=== PATIENT | male | born 1985 | race Caucasian/White ===

== ENCOUNTER 2023-08-04 18:33 | Outpatient (CLI) | payer BC, SELFPAY | END 2023-08-04 18:34 | disposition home or self-care (01) | LOC: AMB 08-11 13:28 | PROVIDERS: Visit Provider Family Medicine | DX: R07.89 Other chest pain (principal) | CPT/HCPCS: A0425; A0427 ==

== ENCOUNTER 2023-08-04 18:54 | Emergency (ER) | payer BC, SELFPAY ==
[2023-08-04] VITALS (17 sets, daily range): BP systolic 137–191; BP diastolic 84–139; PULSE 83–100; RESP 22; TEMP 36.6; O2SAT 90–96; BMI 60.0
--- NOTE | 2023-08-04 19:19 | ED_ITS ---
HPI - General Adult General Chief complaint: Chest Pain Stated complaint: Chest pain Time Seen by Provider: 08/04/23 19:19 History of Present Illness HPI narrative: Patient went for a long walk this morning ( 0700-noon), got back and felt like his lungs were burning at 1500. Had a very heavy feeling in his left arm, felt his vision was changed. Notes he became very short of breath with activity. EMS administered 324 ASA, x2 nitro with some improvement to pain. 37-year-old man presenting to emergency department concern of chest pain. Took a very long walk this morning returning feeling like his lungs are burning is if he had put quality gin, a pine scent he says, into his lungs. He does note a history of alcohol use but has not drank in 2 years. Later this evening than and there was abrupt onset of mid chest pain seemed to radiate deep ache into his left shoulder upper arm area and then down. [place] like something maybe was going into his left neck or jaw as well. He then looked out the window and all the colors were affected just generally pale or washed out. He did not pass out. He does report feeling intermittent flutters in his chest but does not report that at this time nor that he was clearly in tachycardia. He says girlfriend freaked out and he needed to be evaluated. Does not sound as though he typically struggles with GERD or heartburn. Does not have known heart problems. Does take diuretics though for lower extremity edema I believe. The end of March sounds like was treated for a cellulitis believe that location must have involved pannus. Did receive aspirin and nitro from EMS and is improved. He estimates total symptoms of intense pain lasted about 10 minutes, but admittedly maybe longer. He is comfortable at this time; no reported discomfort. Related Data Home Medications Medication Instructions Recorded Confirmed acetazolamide 250 mg tablet 125 mg PO BID 08/04/23 08/04/23 allopurinol 100 mg tablet 100 mg PO DAILY 08/04/23 08/04/23 bumetanide 2 mg tablet 4 mg PO BID 08/04/23 08/04/23 lisinopril 40 mg tablet 40 mg PO DAILY 08/04/23 08/04/23 potassium chloride 20 mEq oral 20 meq PO DAILY 08/04/23 08/04/23 packet (Yanci-Sid) sertraline 50 mg tablet 50 mg PO DAILY 08/04/23 08/04/23 Allergies Allergy/AdvReac Type Severity Reaction Status Date / Time No Known Drug Allergies Allergy Verified 08/04/23 19:05 Review of Systems Status of ROS: Reports: 6 or more systems reviewed and unremarkable except as noted in History and below Exam Narrative: Exam Narrative: Very pleasant. Energetic. Carefully trimmed [place]. Morbidly obese. Cranial nerves 2-12 intact. Is moving all extremities without difficulty. Does have changes consistent with obesity in lower extremities with varicosities. Strong and equal upper extremity pulses. There is some eczematous change in the anterior left ankle. Skin otherwise warm and dry. Tattoo at left forearm. Lungs are clear. Abdomen is obese soft nontender. Heart is in elevated rate in a regular rhythm. Does have a 1-2/6 systolic murmur loudest at the left sternal border. Not radiating into carotids. has residual Vicryl stitch in right lower flank. Const: Vital Signs, click to edit/add: Vital Signs - 24 hr 08/04/23 19:00 08/04/23 19:35 08/04/23 19:35 Temperature 97.8 F Pulse Rate 94 Pulse Rate [Pulse Oximeter] 99 Respiratory Rate 22 Blood Pressure 137/104 H Blood Pressure [Ri ght Upper Arm] 139/103 H Pulse Oximetry 96 93 95 Oxygen Delivery Me thod Room Air 08/04/23 19:36 08/04/23 19:45 08/04/23 20:00 Temperature Pulse Rate 93 100 92 Pulse Rate [Pulse Oximeter] Respiratory Rate Blood Pressure Blood Pressure [Ri ght Upper Arm] Pulse Oximetry 95 95 95 Oxygen Delivery Me thod 08/04/23 20:01 08/04/23 20:15 08/04/23 20:30 Temperature Pulse Rate 87 92 96 Pulse Rate [Pulse Oximeter] Respiratory Rate Blood Pressure 182/91 H Blood Pressure [Ri ght Upper Arm] Pulse Oximetry 95 95 93 Oxygen Delivery Me thod 08/04/23 20:31 08/04/23 20:45 08/04/23 21:00 Temperature Pulse Rate 94 92 83 Pulse Rate [Pulse Oximeter] Respiratory Rate Blood Pressure 154/87 H Blood Pressure [Ri ght Upper Arm] Pulse Oximetry 92 92 93 Oxygen Delivery Me thod 08/04/23 21:02 08/04/23 21:15 Temperature Pulse Rate 83 86 Pulse Rate [Pulse Oximeter] Respiratory Rate Blood Pressure 191/139 H Blood Pressure [Ri ght Upper Arm] Pulse Oximetry 90 92 Oxygen Delivery Ms thod Documenting provider has reviewed patient's vital signs: yes Course Vital Signs Vital signs: Initial Vital Signs Respiratory Effort Normal, Non-Labored 08/04/23 18:59 Respiratory Depth Shallow 08/04/23 18:59 Vital Signs Temperature 97.8 F 08/04/23 19:00 Pulse Rate 99 08/04/23 19:00 Respiratory Rate 22 08/04/23 19:00 Blood Pressure 139/103 H 08/04/23 19:00 Pulse Oximetry 96 08/04/23 19:00 Oxygen Delivery Method Room Air 08/04/23 19:00 Temperature 97.8 F 08/04/23 19:00 Pulse Rate 86 08/04/23 21:15 Respiratory Rate 22 08/04/23 19:00 Blood Pressure 191/139 H 08/04/23 21:02 Pulse Oximetry 92 08/04/23 21:15 Oxygen Delivery Method Room Air 08/04/23 19:00 Medical Decision Making MDM Narrative Medical decision making narrative: Differential would include ischemic cardiovascular disease, tachyarrhythmia, pulmonary embolus though symptoms seem to have resolved at this time. Vascular disruption/dissection. Pneumothorax though again seems improved. Same for costochondritis as possibility. Reflux and esophageal spasm? Does not otherwise seem to have been an exposure or with evidence of a chemical pneumonitis. This point would monitor emergency department with serial troponins and monitor for dysrhythmia and recurrence of discomfort. Portable one view chest x-ray reviewed by me looks to show some cardiomegaly. No pneumothorax no pneumomediastinum. Normal mediastinum otherwise though admittedly exam limited. labs are reassuring with flat troponin on redraw. Negative D-dimer suggests no significant dissection. No further events of discomfort or unstable vitals beyond what I think is some baseline chronically elevated blood pressure and pulse. Removed stitch from right flank. I think would benefit from further cardiac evaluation and important to get the CPAP that is pending arrival; apparently in a nearby town. See patient discharge plan for further discussion Lab Data Lab results reviewed: Yes I reviewed the patient's lab results Labs: Lab Results 08/04/23 08/04/23 08/04/23 Range/Units 19:50 19:57 21:35 WBC 10.28 (4.50-11.00) K/uL RBC 5.18 (4.30-5.90) m/uL Hgb 14.6 (13.5-17.5) gm/dL Hct 45.3 (37.0-53.0) % MCV 88 (80-100) fL MCH 28 (26-34) pg MCHC 32 (32-36) gm/dL RDW Coeff of Octavia 13.1 (11.5-15.5) % Plt Count 100 L (140-440) K/uL Neut % (Auto) 64.6 (42.0-72.0) % Lymph % (Auto) 25.0 (20-44) % [place] % (Auto) 6.9 (0.0-11.0) % Eos % (Auto) 3.0 (0.0-7.0) % Baso % (Auto) 0.3 (0.0-3.0) % Neut # (Auto) 6.64 (1.7-7.0) K/uL Lymph # (Auto) 2.57 (0.90-2.90) K/uL [place] # (Auto) 0.70 (0.00-0.90) K/UL Eos # (Auto) 0.31 (0.00-0.50) K/uL Baso # (Auto) 0.03 (0.00-0.30) K/uL Abs Immat Gran (auto) 0.02 (0.00-0.30) K/uL Imm/Tot Granulo (auto) 0.2 % Diff Slide Review Acceptable Review (Acceptable) D-Dimer Quant (PE/DVT) 0.31 (0.00-0.50) ug/ml Sodium 140 (135-149) mmol/L Potassium 4.2 (3.6-5.1) mmol/L Chloride 105 (96-114) mmol/L Carbon Dioxide 30 (20-32) mmol/L Anion Gap 5 L (7-15) mEq/L BUN 26 H (5-24) mg/dL Creatinine 0.9 (0.5-1.5) mg/dL Estimated Creat Clear 118.53 Estimated GFR 112 ml/min Glucose 104 (60-115) mg/dL Calcium 8.8 (8.4-10.6) mg/dL Magnesium 2.0 (1.5-2.6) mg/dL Total Bilirubin 0.2 (0.1-1.5) mg/dL Direct Bilirubin 0.1 (0.0-0.5) mg/dL AST 26 (12-35) U/L ALT 19 (4-50) U/L Alkaline Phosphatase 62 (40-150) U/L Troponin I 0.03 0.03 (0.01-0.04) ng/mL C-Reactive Protein 1.0 (0.5-1.0) mg/dL NT-Pro-B Natriuret Pep 89 pg/mL Total Protein 7.3 (6.0-8.3) g/dL Albumin 3.7 (3.3-5.0) g/dL Lipase 159 (23-300) U/L Ethyl Alcohol < 0.01 L (0.01-0.03) % POC Troponin I 0.03 (0.01-0.04) ng/ml ECG Data Attestation: I personally reviewed and interpreted this ECG as follows: (Normal sinus rhythm. Rate of 98.) Discharge Plan Discharge Clinical Impression: Atypical chest pain, Heart murmur Patient Disposition: Home, Self-Care Condition: Stable Additional Instructions: stay well-hydrated. I would follow up for further cardiovascular evaluation with your primary care provider. If you have not already this recently, would include an echoca rdiogram. I think it's great you got outside this beautiful day. I would not let this experience today change that. Hopefully you can get your hands on that CPAP soon Prescriptions: No Action potassium chloride [Klor-Con] 20 mEq packet 20 meq PO DAILY bumetanide 2 mg tablet 4 mg PO BID lisinopril 40 mg tablet 40 mg PO DAILY sertraline 50 mg tablet 50 mg PO DAILY allopurinol 100 mg tablet 100 mg PO DAILY acetazolamide 250 mg tablet 125 mg PO BID Follow Up/Referrals: Provider,Not a Local [Primary Care Provider] - Stand Alone Forms: MyHealth Info Instructions
--- NOTE | 2023-08-04 19:36 | XR_ITS ---
Patient: HEATHER PARIS Facility:?[facility] Patient ID:?[id number] Site Patient ID:?[id number]. Site :?[id number] Study:?XRay-Chest PORTABLE-08/04/2023 7:50:42 PM Ordering Physician:DAVID Final Report: INDICATION: Mid chest pain, radiating to left arm. TECHNIQUE: Chest 1 view. COMPARISON: None. FINDINGS: Cardiac monitoring leads overlying the patient. No focal consolidation, pleural effusion, or pneumothorax. The cardiac silhouette appears mildly enlarged. Pulmonary vasculature is within normal limits. The bones are unremarkable. IMPRESSION: Mild cardiomegaly. Dictated by Denita Crain MD @ 08/04/2023 8:01:28 PM Signed by:?Denita Crain MD @08/04/2023 8:01:28 PM (Electronic Signature)
[2023-08-04 20:16] LABS: Troponin, Point-of-Care* 0.03 ng/ml (0.01-0.04)
[2023-08-04 20:18] LABS: Basophils Absolute Auto 0.03 K/uL (0.00-0.30); Basophils Percent Auto 0.3 % (0.0-3.0); Eosinophils Absolute Auto 0.31 K/uL (0.00-0.50); Hematocrit 45.3 % (37.0-53.0); Hemoglobin* 14.6 gm/dL (13.5-17.5); Immature Granulocytes Abs Auto 0.02 K/uL (0.00-0.30); Immature Granulocytes Pct Auto 0.2 %; Lymphocytes Absolute Auto 2.57 K/uL (0.90-2.90); Mean Corpuscular HGB Conc 32 gm/dL (32-36); Mean Corpuscular Hemoglobin 28 pg (26-34); Mean Corpuscular Volume 88 fL (80-100); Monocytes Percent Auto 6.9 % (0.0-11.0); Neutrophils Absolute Auto 6.64 K/uL (1.7-7.0); Neutrophils Percent Auto 64.6 % (42.0-72.0); Platelet Count* 100 K/uL (140-440); RDW Coefficient of Variation % 13.1 % (11.5-15.5); Red Blood Count 5.18 m/uL (4.30-5.90); White Blood Count* 10.28 K/uL (4.50-11.00)
[2023-08-04 20:31] LABS: Slide Review Reflex Yes
[2023-08-04 20:33] LABS: D Dimer Quantitative* 0.31 ug/ml (0.00-0.50)
[2023-08-04 21:08] LABS: Slide Review Acceptable Review (Acceptable)
[2023-08-04 21:14] LABS: Chloride* 105 mmol/L (96-114)
[2023-08-04 21:15] LABS: Albumin* 3.7 g/dL (3.3-5.0); Sodium* 140 mmol/L (135-149)
[2023-08-04 21:16] LABS: Potassium* 4.2 mmol/L (3.6-5.1)
[2023-08-04 21:17] LABS: Creatinine* 0.9 mg/dL (0.5-1.5); Est. Creatinine Clearance* 118.53; Estimated Glomerular Filt Rate 112 ml/min
[2023-08-04 21:18] LABS: Alkaline Phosphatase* 62 U/L (40-150); Anion Gap 5 mEq/L (7-15); Aspartate Amino Transferase* 26 U/L (12-35); Bilirubin Direct* 0.1 mg/dL (0.0-0.5); Bilirubin Total* 0.2 mg/dL (0.1-1.5); Blood Urea Nitrogen* 26 mg/dL (5-24); Carbon Dioxide* 30 mmol/L (20-32); Lipase* 159 U/L (23-300); Total Protein* 7.3 g/dL (6.0-8.3)
[2023-08-04 21:19] LABS: Alanine Aminotransferase* 19 U/L (4-50); Calcium* 8.8 mg/dL (8.4-10.6); Glucose* 104 mg/dL (60-115)
[2023-08-04 21:26] LABS: Ethanol* < 0.01 % (0.01-0.03)
[2023-08-04 21:28] LABS: NT Pro B Type NatriureticPept* 89 pg/mL
[2023-08-04 21:30] LABS: Troponin I* 0.03 ng/mL (0.01-0.04)
[2023-08-04 22:32] LABS: Troponin I* 0.03 ng/mL (0.01-0.04)
== END 2023-08-04 22:48 | disposition home or self-care (01) ==
PROVIDERS: Emergency Provider Family Medicine
DX: R07.9 Chest pain, unspecified (principal); R01.1 Cardiac murmur, unspecified
CPT/HCPCS: 36415; 71045; 80048; 80076; 82077; 83690; 83735; 83880; 84484; 85025; 85379; 86140; 93005; 94761; 99284; 99285

== ENCOUNTER 2024-01-27 12:34 | Outpatient (CLI) | payer BC, SELFPAY | END 2024-01-27 12:35 | disposition home or self-care (01) | LOC: AMB 01-31 11:45 | PROVIDERS: PCP Family Medicine; Visit Provider Family Medicine | DX: R45.851 Suicidal ideations (principal) | CPT/HCPCS: A0425; A0429 ==

== ENCOUNTER 2024-01-27 13:02 | Emergency (ER) | payer BC, SELFPAY ==
[2024-01-27 13:04] VITALS: BP 184/130; PULSE 94; RESP 20; TEMP 36.2; O2SAT 93; BMI 71.1
--- NOTE | 2024-01-27 13:15 | ED_ITS ---
HPI - General Adult General Chief complaint: Psychiatric Problem/Disorder Stated complaint: mental health Time Seen by Provider: 01/27/24 13:03 History of Present Illness HPI narrative: [age] year white male who is obese and has a history of anxiety and depression currently on escitalopram. He reports that he has had some suicidal attempt in the past where he tried to ?cut a vein in his leg and bleed himself out?. He reports that he has been in his apartment. Had a stressful relationship problem. He has been unable to get out of his chair due to the mental concerns a at and he feels like he is at risk to himself. Last night he put all annular on his neck and tried to strangle himself. He denies injury from that. He states he did this for maybe 30-60 seconds. He denies physical pain, denies overdose, denies Tylenol aspirin use, denies street drug use. He has been on antidepressant. His primary care got went of his situation last night and then called the ambulance and he was brought in. He reports that he still does not really feel safe with himself and that he feels very distraught and can confirm safety. Related Data Home Medications ?Medication ?Instructions ?Recorded ?Confirmed acetazolamide 250 mg tablet 125 mg PO BID 08/04/23 01/28/24 allopurinol 100 mg tablet 100 mg PO DAILY 08/04/23 01/28/24 lisinopril 40 mg tablet 40 mg PO DAILY 08/04/23 01/27/24 bumetanide 0.5 mg tablet 0.5 mg PO BID 01/27/24 01/28/24 escitalopram oxalate 10 mg tablet 10 mg PO DAILY 01/27/24 01/27/24 potassium chloride 20 mEq 20 meq PO DAILY 01/27/24 01/27/24 tablet,extended release(part/cryst) Allergies Allergy/AdvReac Type Severity Reaction Status Date / Time concrete Allergy Unknown Uncoded 01/27/24 13:08 Review of Systems Status of ROS: Reports: 6 or more systems reviewed and unremarkable except as noted in History and below PFS PFS Social History Smoking Status: Current every day smoker What tobacco products do you use: cigarettes Exam Narrative: Exam Narrative: Objective: 38-year-old obese male who appears tearful, his mental status a shows an be alert orient x3, he shows some insight to his situation, reports that is not necessarily feel safe with himself at home. HEENT is unremarkable Neurologic grossly nonfocal Mental status as above, patient describes suicidal ideation and says a gesture last night. Denies any other medications being taken other than his prescrip tion medicines. Const: Vital Signs, click to edit/add: Vital Signs - 24 hr 01/27/24 13:04 01/27/24 13:47 Temperature 97.1 F L Pulse Rate [Pulse Oximeter] 94 Respiratory Rate 20 Blood Pressure [Le ft Upper Arm] 184/130 H 165/95 H Pulse Oximetry 93 Oxygen Delivery Me thod Room Air Course Vital Signs Vital signs: Initial Vital Signs Temperature 97.1 F L 01/27/24 13:04 Temperature Source Temporal Artery Scan 01/27/24 13:04 Pulse Rate 94 01/27/24 13:04 Respiratory Rate 20 01/27/24 13:04 Blood Pressure 184/130 H 01/27/24 13:04 Blood Pressure Mean 148 H 01/27/24 13:04 Blood Pressure Position Sitting 01/27/24 13:04 Pulse Oximetry 93 01/27/24 13:04 Oxygen Delivery Method Room Air 01/27/24 13:04 Vital Signs Temperature 97.1 F L 01/27/24 13:04 Pulse Rate 94 01/27/24 13:04 Respiratory Rate 20 01/27/24 13:04 Blood Pressure 184/130 H 01/27/24 13:04 Pulse Oximetry 93 01/27/24 13:04 Oxygen Delivery Method Room Air 01/27/24 13:04 Temperature 97.1 F L 01/27/24 13:04 Pulse Rate 86 01/28/24 05:00 Respiratory Rate 20 01/28/24 05:00 Blood Pressure 168/93 H 01/28/24 05:00 Pulse Oximetry 94 01/28/24 05:00 Oxygen Delivery Method Room Air 01/28/24 05:00 Medications Administered Medications: Discontinued Medications Generic Name Dose Route Start Last Admin Trade Name Freq PRN Reason Stop Dose Admin Acetaminophen 1,000 mg 01/27/24 14:09 01/27/24 14:34 Acetaminophen 500 Mg Tablet PO 01/27/24 14:10 1,000 mg ONCE ONE Administration Lorazepam 1 mg 10/16/24 13:19 01/27/24 13:49 Lorazepam 1 Mg Tablet PO 01/27/24 13:20 1 mg ONCE ONE Administration Nicotine 1 patch 01/27/24 14:45 01/27/24 14:54 Nicotine 14 Mg Patch TRANSDERMA 1 patch Q24H ELIZABETH Administration Olanzapine 10 mg 01/27/24 20:04 01/27/24 20:17 Olanzapine 5 Mg Tab.Rapdis PO 01/27/24 20:05 10 mg ONCE ONE Administration Medical Decision Making MDM Narrative Medical decision making narrative: 38-year-old male with anxiety depression with worsening depression, feelings of hopelessness, suicidal ideation and gesture. At this point I think the patient given his history of doing a vein cut to try and ?bleed himself out? as well as suicidal plan of thinking of injecting detergent into his vein as well as this gesture of trying to strangle himself yesterday needs inpatient care. A 72 hour hold will be signed, transfer sheets completed. Patient will get medically screen before he discharges. His blood pressure is noted be elevated today that will be rechecked. Will also check electrolytes and drug screen Tylenol aspirin levels alcohol level. He was comfortable this assessment plan he actually seems somewhat relieved that he would be getting some help at some point. Addendum 2:00 p.m.: Patient reports he has had some sinus congestion, his white count is mildly elevated. He will get a COVID test as well as viral studies. No other specific complaints no cough, no dysuria frequency. Will await full labs. Will make sure he is medically clear and then attempt psych placement. Lab Data Labs: Lab Results 01/27/24 01/27/24 01/27/24 Range/Units 13:25 13:25 13:30 WBC 17.27 H (4.50-11.00) K/uL RBC 5.56 (4.30-5.90) m/uL Hgb 15.5 (13.5-17.5) gm/dL Hct 48.6 (37.0-53.0) % MCV 87 (80-100) fL MCH 28 (26-34) pg MCHC 32 (32-36) gm/dL RDW Coeff of Octavia 13.0 (11.5-15.5) % Plt Count 226 (140-440) K/uL Neut % (Auto) 83.5 H (42.0-72.0) % Lymph % (Auto) 8.5 L (20-44) % [place] % (Auto) 5.0 (0.0-11.0) % Eos % (Auto) 2.3 (0.0-7.0) % Baso % (Auto) 0.2 (0.0-3.0) % Neut # (Auto) 14.40 H (1.7-7.0) K/uL Lymph # (Auto) 1.50 (0.90-2.90) K/uL [place] # (Auto) 0.90 (0.00-0.90) K/UL Eos # (Auto) 0.40 (0.00-0.50) K/uL Baso # (Auto) 0.00 (0.00-0.30) K/uL Abs Immat Gran (auto) 0.10 (0.00-0.30) K/uL Imm/Tot Granulo (auto) 0.5 % Sodium 139 (135-149) mmol/L Potassium 3.9 (3.6-5.1) mmol/L Chloride 98 (96-114) mmol/L Carbon Dioxide 36 H (20-32) mmol/L Anion Gap 5 L (7-15) mEq/L BUN 25 H (5-24) mg/dL Creatinine 1.0 (0.5-1.5) mg/dL Estimated Creat Clear 105.63 Estimated GFR 98 ml/min Glucose 133 H (60-115) mg/dL Calcium 9.0 (8.4-10.6) mg/dL TSH 1.420 (0.270-4.20) uIU/mL Urine Color (Yellow) Urine Appearance (Clear) Urine pH (5.0-8.5) Ur Specific [place] (1.000-1.030) Urine Protein (Negative) Urine Glucose (UA) (Negative) Urine Ketones (Negative) Urine Blood (Negative) Urine Nitrite (Negative) Urine Bilirubin (Negative) Urine Urobilinogen (0.2-1.0) Ur Leukocyte Esterase (Negative) Urine RBC (0-2) Urine WBC (0-5) Ur Squamous Epith Cells (None-Few) Urine Bacteria (None) Salicylates < 1.0 L (1.0-10) mg/dL Urine Opiates Screen (Negative) Ur Oxycodone Screen (Negative) Urine Methadone Screen (Negative) Acetaminophen < 10.0 L (10.0-30.0) ug/mL Ur Barbiturates Screen (Negative) U Tricyclic Antidepress (Negative) Ur Phencyclidine Scrn (Negative) Ur Amphetamines Screen (Negative) U Methamphetamines Scrn (Negative) U Benzodiazepines Scrn (Negative) Urine Cocaine Screen (Negative) U Marijuana (THC) Screen (Negative) Ur Drug Screen Comment Ethyl Alcohol < 0.01 L (0.01-0.03) % SARS-CoV-2 (PCR) Negative SARS-CoV-2 Negative SARS-CoV-2 (Negative) Influenza Type A (PCR) Negative PCR FLU A (Negative) Influenza Type B (PCR) Negative PCR FLU B (Negative) RSV (PCR) Negative PCR RSV (Negative) 01/27/24 Range/Units 14:49 WBC (4.50-11.00) K/uL RBC (4.30-5.90) m/uL Hgb (13.5-17.5) gm/dL Hct (37.0-53.0) % MCV (80-100) fL MCH (26-34) pg MCHC (32-36) gm/dL RDW Coeff of Octavia (11.5-15.5) % Plt Count (140-440) K/uL Neut % (Auto) (42.0-72.0) % Lymph % (Auto) (20-44) % [place] % (Auto) (0.0-11.0) % Eos % (Auto) (0.0-7.0) % Baso % (Auto) (0.0-3.0) % Neut # (Auto) (1.7-7.0) K/uL Lymph # (Auto) (0.90-2.90) K/uL [place] # (Auto) (0.00-0.90) K/UL Eos # (Auto) (0.00-0.50) K/uL Baso # (Auto) (0.00-0.30) K/uL Abs Immat Gran (auto) (0.00-0.30) K/uL Imm/Tot Granulo (auto) % Sodium (135-149) mmol/L Potassium (3.6-5.1) mmol/L Chloride (96-114) mmol/L Carbon Dioxide (20-32) mmol/L Anion Gap (7-15) mEq/L BUN (5-24) mg/dL Creatinine (0.5-1.5) mg/dL Estimated Creat Clear Estimated GFR ml/min Glucose (60-115) mg/dL Calcium (8.4-10.6) mg/dL TSH (0.270-4.20) uIU/mL Urine Color Yellow (Yellow) Urine Appearance Cloudy A (Clear) Urine pH 6.0 (5.0-8.5) Ur Specific [place] 1.015 (1.000-1.030) Urine Protein Negative (Negative) Urine Glucose (UA) Negative (Negative) Urine Ketones Negative (Negative) Urine Blood Negative (Negative) Urine Nitrite Negative (Negative) Urine Bilirubin Negative (Negative) Urine Urobilinogen 0.2 (0.2-1.0) Ur Leukocyte Esterase Negative (Negative) Urine RBC 0-2 (0-2) Urine WBC 0-2 (0-5) Ur Squamous Epith Cells None (None-Few) Urine Bacteria None (None) Salicylates (1.0-10) mg/dL Urine Opiates Screen Negative (Negative) Ur Oxycodone Screen Negative (Negative) Urine Methadone Screen Negative (Negative) Acetaminophen (10.0-30.0) ug/mL Ur Barbiturates Screen Negative (Negative) U Tricyclic Antidepress Negative (Negative) Ur Phencyclidine Scrn Negative (Negative) Ur Amphetamines Screen Negative (Negative) U Methamphetamines Scrn Negative (Negative) U Benzodiazepines Scrn Negative (Negative) Urine Cocaine Screen Negative (Negative) U Marijuana (THC) Screen Negative (Negative) Ur Drug Screen Comment See Note Ethyl Alcohol (0.01-0.03) % SARS-CoV-2 (PCR) (Negative) Influenza Type A (PCR) (Negative) Influenza Type B (PCR) (Negative) RSV (PCR) (Negative) Discharge Plan Discharge Clinical Impression: Suicide gesture, Depression Patient Disposition: Xfer Other Condition: Stable Additional Instructions: Patient be placed on a hold and transferred for inpatient psych care. Prescriptions: No Action potassium chloride 20 mEq tablet,ER particles/crystals 20 meq PO DAILY bumetanide 0.5 mg tablet 0.5 mg PO BID escitalopram oxalate 10 mg tablet 10 mg PO DAILY lisinopril 40 mg tablet 40 mg PO DAILY allopurinol 100 mg tablet 100 mg PO DAILY acetazolamide 250 mg tablet 125 mg PO BID Stand Alone Forms: MyHealth Info Instructions
[2024-01-27 13:36] LABS: Basophils Percent Auto 0.2 % (0.0-3.0); Eosinophils Percent Auto 2.3 % (0.0-7.0); Hematocrit 48.6 % (37.0-53.0); Hemoglobin* 15.5 gm/dL (13.5-17.5); Immature Granulocytes Pct Auto 0.5 %; Lymphocytes Percent Auto 8.5 % (20-44); Mean Corpuscular HGB Conc 32 gm/dL (32-36); Mean Corpuscular Hemoglobin 28 pg (26-34); Mean Corpuscular Volume 87 fL (80-100); Neutrophils Percent Auto 83.5 % (42.0-72.0); Platelet Count* 226 K/uL (140-440); Red Blood Count 5.56 m/uL (4.30-5.90); Slide Review Reflex No; White Blood Count* 17.27 K/uL (4.50-11.00)
[2024-01-27 13:47] VITALS: BP 165/95
[2024-01-27] MEDS: LORazepam 1 MG TABLET PO (13:49)
[2024-01-27 13:50] LABS: Chloride* 98 mmol/L (96-114); Potassium* 3.9 mmol/L (3.6-5.1); Sodium* 139 mmol/L (135-149)
[2024-01-27 13:52] LABS: Est. Creatinine Clearance* 105.63; Estimated Glomerular Filt Rate 98 ml/min
[2024-01-27 13:53] LABS: Anion Gap 5 mEq/L (7-15); Blood Urea Nitrogen* 25 mg/dL (5-24); Carbon Dioxide* 36 mmol/L (20-32); Glucose* 133 mg/dL (60-115)
[2024-01-27 13:55] LABS: Acetaminophen* < 10.0 ug/mL (10.0-30.0); Ethanol* < 0.01 % (0.01-0.03); Salicylate* < 1.0 mg/dL (1.0-10)
[2024-01-27 14:06] LABS: SARS PCR* Negative SARS-CoV-2 (Negative)
[2024-01-27] MEDS: ACETAMINOPHEN 500 MG TABLET 1000 MG PO (14:34)
[2024-01-27 14:40] LABS: PCR FLU A Negative PCR FLU A (Negative); PCR FLU B Negative PCR FLU B (Negative); PCR RSV Negative PCR RSV (Negative); SARS PCR* Negative SARS-CoV-2 (Negative)
[2024-01-27] MEDS: NICOTINE 14 mg PATCH 1 PATCH TRANSDERMA (14:54)
[2024-01-27 14:57] LABS: Appearance Urine Cloudy (Clear); Bilirubin Urine Negative (Negative); Blood Urine Negative (Negative); Color Urine Yellow (Yellow); Glucose Urine Negative (Negative); Ketones Urine Negative (Negative); Leukocyte Esterase Urine Negative (Negative); Nitrite Urine Negative (Negative); Protein Urine Negative (Negative); Specific Gravity Urine 1.015 (1.000-1.030); Urobilinogen Urine 0.2 (0.2-1.0)
[2024-01-27 15:07] LABS: Amphetamine Screen Urine Negative (Negative); Barbiturate Screen Urine Negative (Negative); Benzodiazepines Screen Urine Negative (Negative); Cannabinoid Screen Urine Negative (Negative); Cocaine Screen Urine Negative (Negative); Methadone Screen Urine Negative (Negative); Methamphetamines Screen Urine Negative (Negative); Opiate Screen Urine Negative (Negative); Oxycodone Screen Urine Negative (Negative); Phencyclidine Screen Urine Negative (Negative); Tricyclic Antidepressant Urine Negative (Negative)
[2024-01-27 15:21] LABS: RBC Urine 0-2 (0-2); WBC Urine 0-2 (0-5)
[2024-01-27 20:00] VITALS: BP 190/109; PULSE 95; RESP 20; O2SAT 94
[2024-01-27] MEDS: OLANZapine 5 MG TAB.RAPDIS 10 MG PO (20:17)
[2024-01-28 00:41] VITALS: RESP 20
[2024-01-28 03:00] VITALS: RESP 20
[2024-01-28 05:00] VITALS: BP 168/93; PULSE 86; RESP 20; O2SAT 94
== END 2024-01-28 09:20 | disposition other institution (70) ==
LOC: ED 15:43
PROVIDERS: Emergency Provider Family Medicine; PCP Family Medicine
DX: R45.851 Suicidal ideations (principal); F32.A Depression, unspecified
CPT/HCPCS: 36415; 80048; 80143; 80179; 80306; 81001; 82077; 84443; 85025; 87086; 87631; 87635; 99285; A9270; S4990

== ENCOUNTER 2024-07-18 10:50 | Outpatient (CLI) | payer BC, SELFPAY | END 2024-07-18 10:51 | disposition home or self-care (01) | LOC: AMB 07-19 14:14 | PROVIDERS: PCP Family Medicine; Visit Provider Emergency Medicine | DX: I16.9 Hypertensive crisis, unspecified (principal) | CPT/HCPCS: A0425; A0427 ==

== ENCOUNTER 2024-07-18 11:20 | Emergency (ER) | payer BC, SELFPAY ==
--- OUTSIDE RECORDS SUMMARY | 2024-07-18 11:22 | XMS_ITS | Clinical Summary ---
Author Organization [facility] Address [address] [place] [address] Care Team Providers Care Overlock Waistline Joiner Name Role Phone Mary Fowler Primary Care Provider [phone]- [phone] Allergies Active Allergy Reactions Criticality Noted Date Comments Unlisted Allergen (Include Detail In Comments) Rash Unknown 04/23/2018 [facility] - Rash on Upper Extremity Medications * This document contains information received from the source organization and may not represent a complete record from that organization. aspirin 325 mg tabletIndication s:Hypertensive urgency Take 1 Tablet (325 mg) by mouth once daily with a meal. 30 Tablet 08/29/2020 2:34 PM CDT 08/31/19 21 Active acetaZOLAMIDE (DIAMOX) 125 mg tablet Take 125 mg by mouth two times daily. 01/08/20 23 Active BiPapIndications :THANG (obstructive sleep apnea),Hypoventi lation associated with obesity syndrome (HC) Replacement Bipap auto, E min 13, I max 25, with a pressure support min 4-max 8. . Heated humidifer, full face mask, headgear, filters and tubing. For home use. Length of need: lifetime. 1 Each 08/10/19 24 Active lisinopriL (PRINIVIL; ZESTRIL) 40 mg tabletIndication s:Hypertension Take 1 Tablet (40 mg) by mouth once daily. 90 Tablet 12/07/19 24 Active potassium chloride (KLOR-CON M20) 20 mEq extended-release tablet (part/cryst)Lizabeth cations:Hyperten yvon,Pulmonary hypertension (HC) Take 1 Tablet (20 mEq) by mouth once daily with a meal. 90 Tablet 3 12/07/19 24 Active allopurinoL (ZYLOPRIM) 100 mg tabletIndication s:Gout of right ankle, unspecified cause, unspecified chronicity Take 1 Tablet (100 mg) by mouth once daily. 90 Tablet 1 12/07/19 24 Active escitalopram oxalate (LEXAPRO) 10 mg tabletIndication s:Unipolar depression Take 1 Tablet (10 mg) by mouth once daily in the morning. 90 Tablet 12/07/19 24 Active miscellaneous medical supply (Blood Pressure Cuff) miscIndications: Hypertension As directed. 1 Each 12/07/19 24 Active bumetanide (BUMEX) 0.5 mg tabletIndication s:Hypertension,P ulmonary hypertension (HC) Take 1 Tablet (0.5 mg) by mouth two times daily. 14 Tablet 05/24/19 25 Active tiZANidine (ZANAFLEX) 2 mg tabletIndication s:Muscle spasm Take 1-2 Tablets (2-4 mg) by mouth every 6 hours if needed for Muscle Spasm. 30 Tablet 2 06/05/2021 7:00 PM LOAN ORIGINATOR 01/24/20 21 025 Discontin ued(*Zaida ent states no longer taking) triamcinolone 0.1 % ointment Apply topically to affected area(s) two times daily. 03/26/20 025 Discontin ued(*Zaida ent states no longer taking) hydrocortisone 2.5 % cream Apply topically to affected area(s). 03/26/20 23 025 Discontin ued(*Zaida ent states no longer taking) Active Problems Patient Care Coordination No te Formatting of this note migh t be different from the original. Bariatric Manual provided Problem Noted Date Diagnosed Date Gout of right ankle 12/07/2023 Hypoventilation associated with obesity syndrome 03/11/2023 Overview (03/11/2023): THANG, requires bipap Pulmonary hypertension 03/11/2023 Acute diastolic CHF (congestive heart failure) 0 08/23/2020 Hypertensive emergency 08/22/2020 Osteochondritis dissecans of ankle, right 2018 Cellulitis of lower extremity 04/12/2018 Allergic contact dermatitis 03/25/2018 THANG (obstructive sleep apnea) 10/16/2014 Edema 10/10/2014 Hypertension Morbid obesity Overview (03/11/2023): 03/11/2023 Body mass index is 67.7 kg/m . Tobacco use disorder Snoring Resolved Problems Problem Noted Date Diagnosed Date Resolved Date Chest pain 04/17/2018 12/07/2023 Allergic contact dermatitis 04/07/2018 04/07/2018 Cor pulmonale, acute 10/11/2014 024 Cor pulmonale 10/11/2014 12/07/2023 Hypoxia,possible PE 10/10/2014 04/12/20 18 Encounters Date Type Department Care Team Description 07/18/2024 10:00 AM CDT Office Visit [facility] [address] [place] [address] Mary Fowler, DO Medication Management (Needing refills on medications, feeling short of breath and retaining water, has been off medications for quite a while) 07/18/2024 Travel from Last 3 Months Immunizations Immunization Administration Dates Next Due DTP 12/05/1996, 0,06/27/1988,12/14/1987,08/16/1986, MMR 12/05/1996,08/17/1996,08/16/1986 Oral Polio Vaccine 11/18/1985 Tdap 09/19/2016 Family History Medical History Relation Name Comments Alcohol/Drug Father alcoholic Diabetes Father Hypertension Father Stroke Mother age 42 Relation Name Status Comments Father Alive Mother Alive Sister Alive x2 Social History Tobacco Use Types Packs/Day Years Used Date Smoking Tobacco: Every Day Cigarettes 1 20.3 Started: 2004 Smokeless Tobacco: Never Tobacco Cessation:Ready to Q uit: Not Asked; Counseling Given: Not Answered Comments:TIP visit done 08/28/20, 10/12/14 Alcohol Use Standard Drinks/Week Comments Not Currently 0 (1 standard drink = 0.6 oz pur e alcohol) sober 2 years PHQ-2 Answer Date Recorded PHQ-2 TOTAL SCORE 6 01/27/2024 Social Connections Answer Date Recorded Do you often feel lonely or isolated from those around you? 0 03/10/2023 Financial Resource Strain Answer Date R ecorded Difficulty of Paying Living Expenses 1 03/11/2023 Difficulty of Paying Living Expenses 2 03/11/2023 Food Insecurity Answer Date Recorded Do you worry your food will run out before you are able to buy more? 1 03/10/2023 Transportation Needs Answer Date Record ed Does lack of transportation keep you from medica l appointments? 1 03/10/2023 Does lack of transportation keep you from work, meetings or getting things that you need? 1 03/10/2023 Housing Stability Answer Date Recorded What is your housing situation today? 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 Not on file Not on file Obstetrics History Last Filed Vital Signs Vital Sign Reading Time Taken Comments Blood Pressure 195/128 07/18/2024 10:22 AM CDT Pulse 96 07/18/2024 10:22 AM CDT Temperature 36.7 C (98 F) 03/11/2023 7:57 AM LOAN ORIGINATOR Respiratory Rate 18 03/11/2023 7:57 AM LOAN ORIGINATOR Oxygen Saturation 94% 07/18/2024 10: 22 AM CDT Inhaled Oxygen Concentration - - Weight 244.4 kg (538 lb 12.8 oz) 2024 10:22 AM CDT Height 180.3 cm (5' 11) 07/18/2024 10: 22 AM CDT Body Mass Index 75.15 07/18/2024 10:22 AM CDT Plan of Treatment Health Maintenance Due Date Last Done Comments HIV for age 15-65 10/30/1999 Hepatitis C screening for ag e 18-79 2002 Pneumococcal series for age 6-49 (1 of 2 - PCV) 10/30/2003 COVID-19 vaccine series ( - season) 2023 Influenza Vaccine (Season Ended) 2024 Depression screening for age 12+ 01/28/2025 01/29/2024, 01/29/2024, 01/27/2024, Additional history exists BMI (ht and wt on same day) for age 18+ 07/18/2025 07/18/2024, 09/13/2020, 07/06/2018, Additional history exists Tetanus booster 09/19/2026 09/19/2016 Lipids for age 35-44 12/06/2028 12/07/2023, 09/23/2019, 03/21/2016 Tdap Completed 09/19/2016 Procedures Procedure Name Priority Date/Time Associated Diagnosis Comments LIPID PANEL W REFLEX MEASURED LDL Routine 12/07/2023 3:21 PM CDT Morbid obesity (HC) from Last 3 Months or Most Recently Relevant to Health Maintenance Results * (ABNORMAL) LIPID PANEL W REFLEX MEASURED LDL (12/07/2023 3:21 PM CDT) CHOLESTEROL,TOTAL 190 100 - 199 mg/dL 12/07/2023 11:23 PM CDT [facility] Comment: Cholesterol, Total Reference Ranges Desirable <200 mg/dL Borderline 200-239 mg/dL High >=240 mg/dL TRIGLYCERIDES 349(H) <150 mg/dL 12/07/2023 11:23 PM CDT [facility] HDL CHOLESTEROL 31(L) >40 mg/dL 11:23 PM CDT [facility] NON-HDL CHOLESTEROL 159(H) <145 mg/dl 12/07/2023 11:23 PM CDT [facility] CHOL/HDL RATIO 6.13(H) <4.50 12/07/2023 11:23 PM CDT [facility] LDL CHOLESTEROL 89 <=130 mg/dL 12/07/2023 11:23 PM CDT [facility] VLDL CHOLESTEROL 70(H) <=30 mg/dL 12/07/2023 11:23 PM CDT [facility] PROVIDER ORDERED STATUS RANDOM 12/07/2023 11:23 PM CDT [facility] Blood BLOOD SPECIMEN / Unknown Venipuncture / Unknown 12/07/2023 3:21 PM CDT 12/07/2023 3:21 PM CDT us Mary Fowler DO CHEMISTRY [facility] [address] [place] [address], from Last 3 Months or Most Recently Relevant to Health Maintenance Additional Health Concerns Infection Onset Date Last Indicated MRSA 03/11/2023 03/11/2023 Insurance BLUE [facility] [place] [employer] [address] [place] [id number] Advance Directives * Full Code (Latest Code Status on File) Date Activated Date Inactivated Comments 03/10/2023 11:20 PM 03/11/2023 3:37 PM Question Answer Comments Code Status Discussion: Reviewed Preferences * Full Code Date Activated Date Inactivated Comments 08/22/2020 8:58 PM 08/29/2020 4:49 PM Question Answer Comments Code Status Discussion: Not Discussed * Full Code Date Activated Date Inactivated Comments 04/12/2018 11:03 PM 04/20/2018 3:21 PM * Full Code Date Activated Date Inactivated Comments 10/10/2014 7:37 PM 10/17/2014 1:03 PM * Full Code Date Activated Date Inactivated Comments 10/10/2014 2:45 AM 10/10/2014 7:37 PM Care Teams Overlock Waistline Joiner Relationship Specialty Start Date End Date Mary Fowler [place] [address] [place] [address] PCP - General Family Practice 01/21/24
[2024-07-18 11:26] VITALS: BP 193/125; PULSE 93; RESP 20; TEMP 36.4; O2SAT 93; BMI 74.5
--- NOTE | 2024-07-18 11:33 | ED_ITS ---
HPI - General Adult General Time Seen by Provider: 11:33 Date Seen: 07/18/24 Chief complaint: Hypertension Stated complaint: high blood pressure Time Seen by Provider: 07/18/24 11:33 Source: patient, RN notes reviewed and old records reviewed (Epic reviewed.) Mode of arrival: ambulatory Limitations: no limitations History of Present Illness HPI narrative: This 38-year-old male was sent by [facility] via EMS for concerns of hypertensive emergency. He went into clinic today because the pharmacy did not have a cuff big enough to check his blood pressure. He admits he had been off his blood pressure medicines for over a month. Had been dealing with some depression, was improving from that and decided that he really needed to take care of himself and get back on his medicines. He went to clinic today and his blood pressure was systolic 195. For EMS it was 219/114. He admits that he has had some increased shortness of breath, it is more prominent if he attempts to walk a distance and he has noted increased edema of his lower extremities. He has not had any fevers chills, not coughing anything up. He has had no chest pain. No stroke symptoms. He was on Bumex, he states maybe 4 pills a day, talks about how his doctor was concerned about starting on high-dose and hurting his kidneys??? He also was on lisinopril. He denies any shortness of breath, chest pain or acute stroke symptoms at this time. No visual changes, no headache. His records show morbid obesity, hypoventilation associated with obesity syndrome, obstructive sleep apnea, tobacco use disorder, edema, pulmonary hypertension, hypertension, diastolic heart failure. He historically was on lisinopril 40 mg daily, potassium 20 mEq daily, Bumex 0.5 mg twice a day, Diamox 125 mg twice a day, aspirin 325 mg daily. Also historically has taken allopurinol 100 mg daily. Related Data Previous Rx's ?Medication ?Instructions ?Recorded bumetanide 0.5 mg tablet 0.5 mg PO BID #14 tabs 07/18/24 lisinopril 40 mg tablet 40 mg PO DAILY #7 tabs 07/18/24 potassium chloride 20 mEq 20 meq PO DAILY #7 tabs 07/18/24 tablet,extended release(part/cryst) (Klor-Con M) Allergies Allergy/AdvReac Type Severity Reaction Status Date / Time concrete Allergy Unknown Uncoded 01/27/24 13:08 Review of Systems Status of ROS: Reports: 6 or more systems reviewed and unremarkable except as noted in History and below [facility] Social History Smoking Status: Current every day smoker What tobacco products do you use: cigarettes Exam Const: Vital Signs, click to edit/add: Vital Signs - 24 hr 07/18/24 11:26 07/18/24 13:29 07/18/24 13:29 Temperature 97.5 F L Pulse Rate 97 Pulse Rate [Pulse Oximeter] 93 Respiratory Rate 20 16 Blood Pressure 202/117 H Blood Pressure [Ri ght Upper Arm] 193/125 H Pulse Oximetry 93 94 94 Oxygen Delivery Me thod Room Air Room Air This 38-year-old male is standing up in the room looking comfortable when I come in. He is not seated, he is just standing. He does sit down on the edge of the bed for examination. Vitals are reviewed. Pupils equal round reactive, symmetric facial function, speech is normal, able speak in complete sentences. Neck extremely thick, very difficult to assess any veinous distension of his neck. Lungs are clear, good air entry, no wheezing crackles, no tachypnea, no accessory muscle use. CV regular rate and rhythm, no murmur, normal S1-S2. Morbid obesity, abdomen not specifically tender, body habitus precludes any assurance of organomegaly or masses. He has thickened lower extremities, no erythema, they are not necessarily pitting but with his morbid obesity, difficult to assess severity of edema. Documenting provider has reviewed patient's vital signs: yes Course Course ED Course: He does not need any head CT imaging based on his clinical evaluation at this time. Do not feel he has any encephalopathy changes. Will get an EKG, chest x- ray and basic labs. If these are stable, will plan on lisinopril, Bumex dosing. Need to ensure that he is not developing any decompensated heart failure but on his presentation he seems stable. Reevaluation(s) Time of Reevaluation #1: 14:02 Reevaluation #1: Patient will be discharged home. Labs are stable. He is requesting discharge at this time. We did give him a dose of oral lisinopril here. He understands that this will likely take 1-2 weeks to start reaching maximum affected blood pressure control. We do not carry oral Bumex here and will send this into his pharmacy, can take a dose today when he gets home. Vital Signs Vital signs: Initial Vital Signs Respiratory Effort Short of Breath 07/18/24 11:22 Respiratory Depth Shallow 07/18/24 11:22 Respiratory Pattern Normal 07/18/24 11:22 Vital Signs Temperature 97.5 F L 07/18/24 11:26 Pulse Rate 93 07/18/24 11:26 Respiratory Rate 20 07/18/24 11:26 Blood Pressure 193/125 H 07/18/24 11:26 Pulse Oximetry 93 07/18/24 11:26 Oxygen Delivery Method Room Air 07/18/24 11:26 Temperature 97.5 F L 07/18/24 11:26 Pulse Rate 97 07/18/24 13:29 Respiratory Rate 16 07/18/24 13:29 Blood Pressure 202/117 H 07/18/24 13:29 Pulse Oximetry 94 07/18/24 13:29 Oxygen Delivery Method Room Air 07/18/24 13:29 Medications Administered Medications: Discontinued Medications Generic Name Dose Route Start Last Admin Trade Name Freq PRN Reason Stop Dose Admin Lisinopril 40 mg 07/18/24 12:51 07/18/24 13:28 Lisinopril 20 Mg Tablet PO 07/18/24 12:52 40 mg ONCE ONE Administration Medical Decision Making Lab Data Lab results reviewed: Yes I reviewed the patient's lab results Labs: Lab Results 07/18/24 Range/Units 12:05 WBC 10.15 (4.50-11.00) K/uL RBC 5.34 (4.30-5.90) m/uL Hgb 15.1 (13.5-17.5) gm/dL Hct 47.2 (37.0-53.0) % MCV 88 (80-100) fL MCH 28 (26-34) pg MCHC 32 (32-36) gm/dL RDW Coeff of Octavia 13.5 (11.5-15.5) % Plt Count 234 (140-440) K/uL Neut % (Auto) 73.3 H (42.0-72.0) % Lymph % (Auto) 15.1 L (20-44) % [place] % (Auto) 6.0 (0.0-11.0) % Eos % (Auto) 3.9 (0.0-7.0) % Baso % (Auto) 0.4 (0.0-3.0) % Neut # (Auto) 7.40 H (1.7-7.0) K/uL Lymph # (Auto) 1.50 (0.90-2.90) K/uL [place] # (Auto) 0.60 (0.00-0.90) K/UL Eos # (Auto) 0.40 (0.00-0.50) K/uL Baso # (Auto) 0.04 (0.00-0.30) K/uL Abs Immat Gran (auto) 0.13 (0.00-0.30) K/uL Imm/Tot Granulo (auto) 1.3 % VBG pH 7.384 (7.32-7.43) VBG pCO2 50 (40-50) mmHG VBG pO2 53.9 H (25-47) mmHG VBG HCO3 30 H (21-28) mmol/L Sodium 142 (135-149) mmol/L Potassium 3.8 (3.6-5.1) mmol/L Chloride 105 (96-114) mmol/L Carbon Dioxide 29 (20-32) mmol/L Anion Gap 8 (7-15) mEq/L BUN 12 (5-24) mg/dL Creatinine 0.9 (0.5-1.5) mg/dL Estimated Creat Clear 117.37 Estimated GFR 111 ml/min Glucose 109 (60-115) mg/dL Calcium 8.8 (8.4-10.6) mg/dL Troponin I 0.04 (0.01-0.04) ng/mL NT-Pro-B Natriuret Pep 103 pg/mL Imaging Data Chest x-ray: Attestation: I have reviewed the pertinent imaging results. Radiologist's impression: Patient: HEATHER PARIS Facility:?[facility] Patient ID:?[id number] Site Patient ID:?[id number]. Site :?[id number] Study:?XRay-Chest 2 VIEW-07/18/2024 12:02:16 PM Ordering Physician:?Lew Smithce Final Report: INDICATION: Hypertension, shortness of breath, fluid retention COMPARISON: None. TECHNIQUE: PA and lateral 2 view chest. FINDINGS: Lung volumes are moderate. No focal or diffuse opacities. Mild pulmonary edema. No pleural effusion. No pneumothorax. No pneumomediastinum. Cardiomegaly. Upper mediastinal contours are within normal limits. Bones: Normal for age. IMPRESSION: Mild pulmonary edema and cardiomegaly. No pleural effusion. Dictated by Hayley Potter MD @ 07/18/2024 12:14:26 PM (Electronic Signature) ECG Data Attestation: I personally reviewed and interpreted this ECG as follows: (In normal sinus rhythm, 85 beats per minute. Flipped T-waves lead 1 and aVL/downsloping ST segments.) Prior ECG tracings: available for review (Similar to EKG 08/04/2023) Discharge Plan Discharge Clinical Impression: Hypertension Qualifiers: Hypertension type: primary hypertension Qualified Code(s): I10 - Essential (primary) hypertension Edema Qualifiers: Edema type: unspecified Qualified Code(s): R60.9 - Edema, unspecified Patient Disposition: Home, Self-Care Condition: Stable Instructions: Heart Healthy Diet (ED), Hypertension (ED), Edema (ED) Additional Instructions: Kidney functions and heart enzyme normal, no evidence of any need for hospitalization. Your medications will take probably a couple weeks for full affect of edema treatment and bring your blood pressure down. I have sent a week's worth of the lisinopril and Bumex to the pharmacy. I need you to schedule a follow-up within the next 3-5 days in clinic with your primary provider. Further medications will need to be obtained from clinic. Since we are starting the Bumex, will also make sure you have some potassium. Try to elevate your legs to heart level or above to help decrease edema. If you feel you have increasing edema, increased difficulty with breathing or shortness of breath, developed chest pain, do recommend re-evaluation in the emergency room. Activity Level: Activity as Tolerated Prescriptions: New lisinopril 40 mg tablet 40 mg PO DAILY Qty: 7 0RF bumetanide 0.5 mg tablet 0.5 mg PO BID Qty: 14 0RF potassium chloride [Klor-Con M20] 20 mEq tablet,ER particles/crystals 20 meq PO DAILY Qty: 7 0RF Follow Up/Referrals: Mary Fowler DO [Primary Care Provider] - Stand Alone Forms: [employer] Info Instructions
--- NOTE | 2024-07-18 11:45 | CRLHL7_ITS ---
For Patients: As a result of the Century Cures Act, medical imaging exams and procedure reports are released immediately into your electronic medical record. You may view this report before your referring provider. If you have questions, please contact your health care provider. INDICATION: Hypertension, shortness of breath, fluid retention COMPARISON: None. TECHNIQUE: PA and lateral 2 view chest. FINDINGS: Lung volumes are moderate. No focal or diffuse opacities. Mild pulmonary edema. No pleural effusion. No pneumothorax. No pneumomediastinum. Cardiomegaly. Upper mediastinal contours are within normal limits. Bones: Normal for age. IMPRESSION: Mild pulmonary edema and cardiomegaly. No pleural effusion. Dictated by Hayley Potter MD @ 07/18/2024 12:14:26 PM (Electronically Signed)
[2024-07-18 12:12] LABS: HCO3 VBG 30 mmol/L (21-28); PCO2 VBG 50 mmHG (40-50); PO2 VBG 53.9 mmHG (25-47); pH VBG 7.384 (7.32-7.43)
[2024-07-18 12:19] LABS: Basophils Absolute Auto 0.04 K/uL (0.00-0.30); Basophils Percent Auto 0.4 % (0.0-3.0); Eosinophils Percent Auto 3.9 % (0.0-7.0); Hematocrit 47.2 % (37.0-53.0); Hemoglobin* 15.1 gm/dL (13.5-17.5); Immature Granulocytes Abs Auto 0.13 K/uL (0.00-0.30); Immature Granulocytes Pct Auto 1.3 %; Lymphocytes Percent Auto 15.1 % (20-44); Mean Corpuscular HGB Conc 32 gm/dL (32-36); Mean Corpuscular Hemoglobin 28 pg (26-34); Mean Corpuscular Volume 88 fL (80-100); Neutrophils Percent Auto 73.3 % (42.0-72.0); Platelet Count* 234 K/uL (140-440); RDW Coefficient of Variation % 13.5 % (11.5-15.5); Red Blood Count 5.34 m/uL (4.30-5.90); White Blood Count* 10.15 K/uL (4.50-11.00)
[2024-07-18 12:33] LABS: Chloride* 105 mmol/L (96-114); Potassium* 3.8 mmol/L (3.6-5.1); Sodium* 142 mmol/L (135-149)
[2024-07-18 12:36] LABS: Anion Gap 8 mEq/L (7-15); Blood Urea Nitrogen* 12 mg/dL (5-24); Calcium* 8.8 mg/dL (8.4-10.6); Carbon Dioxide* 29 mmol/L (20-32); Creatinine* 0.9 mg/dL (0.5-1.5); Est. Creatinine Clearance* 117.37; Estimated Glomerular Filt Rate 111 ml/min; Glucose* 109 mg/dL (60-115)
[2024-07-18 12:38] LABS: Slide Review Reflex No
--- OUTSIDE RECORDS SUMMARY | 2024-07-18 12:40 | XMS_ITS | Clinical Summary ---
Author Organization [facility] Address [address] [place] [address] Care Team Providers Care Extension Service Agent Name Role Phone Mary Fowler Primary Care Provider [phone]- [phone] Allergies Active Allergy Reactions Criticality Noted Date Comments Unlisted Allergen (Include Detail In Comments) Rash Unknown 04/23/2018 Delta - Rash on Upper Extremity Medications * [...] Spasm. 30 Tablet 2 06/05/2021 7:00 PM FLORIST 01/24/20 21 025 Discontin ued(*Zaida ent states [...] Description 07/18/2024 10:00 AM CDT Office Visit [facility] [address] [place] [address] Mary Fowler, DO Medication Management [...] lonely or isolated from those around you? 4 07/18/2024 Financial Resource Strain Answer Date R ecorded Difficulty of Paying Living Expenses 3 07/18/2024 Difficulty of Paying Living Expenses Not on file 07/18/2024 Food Insecurity Answer Date Recorded Do you worry your food will run out before you are able to buy more? 1 07/18/2024 Transportation Needs Answer Date Record ed Does lack of transportation keep you from medica l appointments? 2 07/18/2024 Does lack of transportation keep you from work, meetings or getting things that you need? 2 07/18/2024 Housing Stability Answer Date Recorded What is your housing situation today? 1 07/18/2024 Utilities Answer Date Recorded Do you have trouble paying f or utilities (for example, heat, electricity, water, phone)? 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 file Not on file Obstetrics History Last Filed Vital Signs Vital Sign Reading Time Taken Comments Blood Pressure 195/128 07/18/2024 10:22 AM CDT Pulse 96 07/18/2024 10:22 AM CDT Temperature 36.7 C (98 F) 03/11/2023 7:57 AM FLORIST Respiratory Rate 18 03/11/2023 7:57 AM FLORIST Oxygen Saturation 94% 07/18/2024 10: 22 AM [...] - 199 mg/dL 12/07/2023 11:23 PM CDT [facility] Comment: Cholesterol, Total Reference Ranges Desirable <200 mg/dL Borderline 200-239 mg/dL High >=240 mg/dL TRIGLYCERIDES 349(H) <150 mg/dL 12/07/2023 11:23 PM CDT [facility] HDL CHOLESTEROL 31(L) >40 mg/dL 11:23 PM CDT [facility] NON-HDL CHOLESTEROL 159(H) <145 mg/dl 12/07/2023 11:23 PM CDT [facility] CHOL/HDL RATIO 6.13(H) <4.50 12/07/2023 11:23 PM CDT [facility] LDL CHOLESTEROL 89 <=130 mg/dL 12/07/2023 11:23 PM CDT [facility] VLDL CHOLESTEROL 70(H) <=30 mg/dL 12/07/2023 11:23 PM CDT [facility] PROVIDER ORDERED STATUS RANDOM 12/07/2023 11:23 PM CDT [facility] Blood BLOOD SPECIMEN / Unknown Venipuncture / Unknown 12/07/2023 3:21 PM CDT 12/07/2023 3:21 PM CDT Mary Fowler DO CHEMISTRY Final Resu lt [facility] [address] [place] [address], from Last 3 Months or Most Recently Relevant to Health Maintenance Additional Health Concerns Infection Onset Date Last Indicated MRSA 03/11/2023 03/11/2023 Insurance [facility] WORKERS COMP [address] [place] [id number] Advance Directives * Full Code (Latest Code [...] 2:45 AM 10/10/2014 7:37 PM Care Teams Extension Service Agent Relationship Specialty Start Date End Date Mary Fowler DO [address] [place] [address] PCP - General Family Practice 01/21/24
[2024-07-18 12:48] LABS: Troponin I* 0.04 ng/mL (0.01-0.04)
[2024-07-18 12:52] LABS: NT Pro B Type NatriureticPept* 103 pg/mL
[2024-07-18] MEDS: lisinopriL 20 MG TABLET 40 MG PO (13:28)
[2024-07-18 13:29] VITALS: BP 202/117; PULSE 97; RESP 16; O2SAT 94
== END 2024-07-18 14:12 | disposition home or self-care (01) ==
PROVIDERS: Emergency Provider Family Medicine; PCP Family Medicine
DX: I10 Essential (primary) hypertension (principal); R60.9 Edema, unspecified
CPT/HCPCS: 36415; 71046; 80048; 82803; 83880; 84484; 85025; 93005; 94761; 99284; A9270

== ENCOUNTER 2024-07-21 14:29 | Emergency (ER) | payer BC, SELFPAY ==
[2024-07-21] VITALS (14 sets, daily range): BP systolic 175–198; BP diastolic 109–133; PULSE 83–89; RESP 4–26; TEMP 35.5; O2SAT 90–96; BMI 74.5
--- NOTE | 2024-07-21 14:32 | ED_ITS ---
HPI - General Adult General Date Seen: 07/21/24 Chief complaint: Shortness of Breath/Dyspnea Stated complaint: SOB, high blood pressure Time Seen by Provider: 07/21/24 14:32 History of Present Illness HPI narrative: 38-year-old male with a past medical history of hypertension, morbid obesity, hypoventilation associated with obesity syndrome, obstructive sleep apnea, tobacco use disorder, edema, pulmonary hypertension, hypertension, diastolic heart failure. He historically was on lisinopril 40 mg daily, potassium 20 mEq daily, Bumex 0.5 mg twice a day, Diamox 125 mg twice a day, aspirin 325 mg daily. Also historically has taken allopurinol 100 mg daily. Was sent from the [facility] to the ER 3 days ago on 07/18 for elevated blood pressure (also shortness of breath). According to those notes he had been off his long-term blood pressure medications for about a month. Workup in the ER showed WBC 10.1, hemoglobin 15.1, platelet count 234. VBG showed pH is 738, pCO2 50. BMP showed sodium 142, potassium 3.8, chloride 105, bicarb 29, BUN 12, creatinine 0.9. Glucose 109. Troponin was 0.04. N terminal proBNP was 103. Chest x-ray showed IMPRESSION: Mild pulmonary edema and cardiomegaly. No pleural effusion. Patient was worked up in the ER and was started back on his normal home meds including Bumex 0.5 mg b.i.d., lisinopril 40 mg daily. He notes that on Thursday, the day after his ER visit he had a lot of shortness of breath when he was caring some small bags of groceries up a flight of stairs to get home. Actually called the [facility] that day because of his shortness of breath and was told to come here to the ER. However he did not come in until today. He still has some mild shortness of breath. No chest pain. No palpitations. He has been taking the Bumex but feels like he is not putting out very much urine. He has not been able to measure his blood pressure at home. He does not have a headache. No blurry vision. No chest pain. No palpitations. No focal numbness or weakness. Related Data Previous Rx's ?Medication ?Instructions ?Recorded bumetanide 0.5 mg tablet 0.5 mg PO BID #14 tabs 07/18/24 lisinopril 40 mg tablet 40 mg PO DAILY #7 tabs 07/18/24 potassium chloride 20 mEq 20 meq PO DAILY #7 tabs 07/18/24 tablet,extended release(part/cryst) (Klor-Con M) Allergies Allergy/AdvReac Type Severity Reaction Status Date / Time concrete Allergy Unknown Uncoded 01/27/24 13:08 [facility] Social History Smoking Status: Current every day smoker What tobacco products do you use: cigarettes Exam Narrative: Exam Narrative: Constitutional: Appears well-developed and over-nourished. Alert. Conversant. Non toxic. HENT: Head: Atraumatic. Nose: Nose normal. Mouth/Throat: Oral mucosa is clear and moist. no trismus. Pharynx normal. Tonsils symmetric. No tonsillar enlargement, erythema, or exudate. Eyes: Conjunctivae normal. EOM normal. Pupils equal, round, and reactive to light. No scleral icterus. Neck: Normal range of motion. Neck supple. No tracheal deviation present. No definite JVD. Cardiovascular: Normal rate, regular rhythm. No gallop. No friction rub. No murmur heard. Symmetric radial artery pulses Pulmonary/Chest: Effort normal. No stridor. No respiratory distress. No wheezes. No rales. No rhonchi . No tenderness. Abdominal: Soft. Bowel sounds normal. No distension. No mass. No tenderness. No rebound. No guarding. Musculoskeletal: RUE: Normal range of motion. No tenderness. No deformity LUE: Normal range of motion. No tenderness. No deformity RLE: Normal range of motion. 2+ chronic edema. No tenderness. No deformity LLE: Normal range of motion. 3+ chronic edema. No tenderness. No deformity Lymph: No cervical adenopathy. Neurological: Alert and oriented to person, place, and time. Normal strength. CN II-VII intact. No sensory deficit. GCS eye subscore is 4. GCS verbal subscore is 5. GCS motor subscore is 6. Normal coordination Skin: Skin is warm and dry. No rash noted. No pallor. Normal capillary refill. Psychiatric: Normal mood. Normal affect. Const: Vital Signs, click to edit/add: Vital Signs - 24 hr 07/21/24 14:33 07/21/24 14:45 07/21/24 14:47 Temperature 96 F L Pulse Rate 86 86 Respiratory Rate 26 H 20 21 Blood Pressure 175/109 H Blood Pressure [Le ft Upper Arm] 175/109 H Pulse Oximetry 96 94 92 Oxygen Delivery Me thod Room Air 07/21/24 15:00 07/21/24 15:01 07/21/24 15:15 Temperature Pulse Rate 85 83 88 Respiratory Rate 15 15 Blood Pressure 198/133 H Blood Pressure [Le ft Upper Arm] Pulse Oximetry 92 93 92 Oxygen Delivery Me thod 07/21/24 15:30 07/21/24 15:32 07/21/24 15:45 Temperature Pulse Rate 85 89 85 Respiratory Rate 10 L 4 L Blood Pressure 178/126 H Blood Pressure [Le ft Upper Arm] Pulse Oximetry 91 91 91 Oxygen Delivery Me thod 07/21/24 16:00 07/21/24 16:01 07/21/24 16:15 Temperature Pulse Rate 86 87 86 Respiratory Rate 12 5 L Blood Pressure 193/117 H Blood Pressure [Le ft Upper Arm] Pulse Oximetry 90 91 91 Oxygen Delivery Me thod 07/21/24 16:30 07/21/24 16:32 Temperature Pulse Rate 87 87 Respiratory Rate Blood Pressure 188/117 H Blood Pressure [Le ft Upper Arm] Pulse Oximetry 91 91 Oxygen Delivery Me thod Course Vital Signs Vital signs: Initial Vital Signs Temperature 96 F L 07/21/24 14:33 Temperature Source Temporal Artery Scan 07/21/24 14:33 Pulse Rhythm Regular 07/21/24 14:33 Respiratory Rate 26 H 07/21/24 14:33 Blood Pressure 175/109 H 07/21/24 14:33 Blood Pressure Mean 131 H 07/21/24 14:33 Blood Pressure Position Semi-Fowlers 07/21/24 14:33 Pulse Oximetry 96 07/21/24 14:33 Oxygen Delivery Method Room Air 07/21/24 14:33 Vital Signs Temperature 96 F L 07/21/24 14:33 Respiratory Rate 26 H 07/21/24 14:33 Blood Pressure 175/109 H 07/21/24 14:33 Pulse Oximetry 96 07/21/24 14:33 Oxygen Delivery Method Room Air 07/21/24 14:33 Temperature 96 F L 07/21/24 14:33 Pulse Rate 87 07/21/24 16:32 Respiratory Rate 5 L 07/21/24 16:01 Blood Pressure 188/117 H 07/21/24 16:32 Pulse Oximetry 91 07/21/24 16:32 Oxygen Delivery Method Room Air 07/21/24 14:33 Medications Administered Medications: Discontinued Medications Generic Name Dose Route Start Last Admin Trade Name Rudy PRN Reason Stop Dose Admin Furosemide 40 mg 07/21/24 16:17 07/21/24 16:35 Furosemide 10 Mg/Ml Inj IVP 07/21/24 16:18 40 mg ONCE ONE Administration Medical Decision Making MDM Narrative Medical decision making narrative: This patient presents for evaluation of elevated blood pressure and some shortness of breath, in particular an episode of dyspnea on exertion that happen a couple of days ago.. He has a complex past medical history including hypertension, but it had been off his meds and off his antihypertensives for several months lately related to depression. He has been trying to get back in with his primary care provider to get restarted on his meds but after going to the clinic on Thursday was sent here to the ER for markedly elevated blood pressure. That ER workup showed no signs of acute end-organ damage so he was discharged home and started back on his previous antihypertensive (lisinopril, Bumex 0.5 mg b.i.d.). He had another episode of dyspnea on exertion the day after his ER visit (on Thursday) and called back to his PCP clinic and was again to cold come back to the ER. He did not come back to the ER until today because he had get things arranged at home. He is not actually short of breath or having any chest pain today. No concerning symptoms of chest pain , severe headache, focal neurologic de ficits. Blood pressure readings are again elevated ranging about 175/109 up to 188/117. The workup here is negative and the patient does not have any clinical, laboratory, ecg or historical signs of end-organ dysfunction. He does have significant bilateral lower extremity peripheral edema which is chronically asymmetric, worse in the left leg than the right. There is no signs of hypertensive emergency or urgency. Supportive outpatient management is therefore indicated with close follow-up of primary care physician. Given data obtained here in ED, will have him continue his current dose of lisinopril but will have him increase his dose of Bumex from 0.5 mg p.o. b.i.d. up to 1 mg p.o. b.i.d.. Also gave an additional dose of furosemide 40 mg IV here in the ER. After monitoring the patient is now producing urine, showing positive response to his loop diuretic which he had not noted on his previous diagnosis of Bumex.. Encouraged at home blood pressure monitoring , but he says he does not have a cuff that will fit his arm. He will call to arrange follow-up with the [facility] within the next 3-5 days for blood pressure check. Should probably have repeat labs including creatinine and potassium level at that visit given his increased dose of diuretic. Likely his primary will also have to add additional antihypertensives. Lab Data Labs: Lab Results 07/21/24 Range/Units 15:15 WBC 8.14 (4.50-11.00) K/uL RBC 5.29 (4.30-5.90) m/uL Hgb 14.9 (13.5-17.5) gm/dL Hct 47.0 (37.0-53.0) % MCV 89 (80-100) fL MCH 28 (26-34) pg MCHC 32 (32-36) gm/dL RDW Coeff of Octavia 13.5 (11.5-15.5) % Plt Count 119 L (140-440) K/uL Neut % (Auto) 67.9 (42.0-72.0) % Lymph % (Auto) 20.4 (20-44) % [place] % (Auto) 6.5 (0.0-11.0) % Eos % (Auto) 4.9 (0.0-7.0) % Baso % (Auto) 0.2 (0.0-3.0) % Neut # (Auto) 5.52 (1.7-7.0) K/uL Lymph # (Auto) 1.66 (0.90-2.90) K/uL [place] # (Auto) 0.50 (0.00-0.90) K/UL Eos # (Auto) 0.40 (0.00-0.50) K/uL Baso # (Auto) 0.02 (0.00-0.30) K/uL Abs Immat Gran (auto) 0.01 (0.00-0.30) K/uL Imm/Tot Granulo (auto) 0.1 % Sodium 139 (135-149) mmol/L Potassium 3.9 (3.6-5.1) mmol/L Chloride 101 (96-114) mmol/L Carbon Dioxide 34 H (20-32) mmol/L Anion Gap 4 L (7-15) mEq/L BUN 10 (5-24) mg/dL Creatinine 0.8 (0.5-1.5) mg/dL Estimated Creat Clear 132.04 Estimated GFR 115 ml/min Glucose 102 (60-115) mg/dL Calcium 8.8 (8.4-10.6) mg/dL Troponin I 0.03 (0.01-0.04) ng/mL NT-Pro-B Natriuret Pep 58 pg/mL Imaging Data Chest x-ray: Attestation: I have reviewed the pertinent imaging results. Radiologist's impression: IMPRESSION: No findings to explain the clinical history. ECG Data Attestation: I personally reviewed and interpreted this ECG as follows: Interpretation: Normal sinus rhythm Rate: 85 WI: 154 QRS axis: Normal axis ST segment/T wave: No pathologic Q-waves. No ST segment elevation or depression. Nonspecific T-wave flattening in lead V3, V6 QTc: 461 No change compared to 07/18/2024 Discharge Plan Discharge Clinical Impression: Hypertension Qualifiers: Hypertension type: primary hypertension Qualified Code(s): I10 - Essential (primary) hypertension Edema Qualifiers: Edema type: unspecified Qualified Code(s): R60.9 - Edema, unspecified Patient Disposition: Home, Self-Care Condition: Stable Instructions: Hypertension (ED), Edema (ED) Additional Instructions: As we discussed, so for your workup for signs of heart damage or kidney damage looks good. However it is very important for you to continue on your blood pressure medications to keep her blood pressure down. Temporarily, for the next week increase your dose of Bumex up to 1 mg twice daily. Continue on your current dose of lisinopril. Please follow-up with your regular doctor for a recheck and blood pressure check within 1 week. If you have any worsening symptoms such as new chest pain, worsening trouble breathing, or any concerns, please come back to the ER. Prescriptions: No Action lisinopril 40 mg tablet 40 mg PO DAILY Qty: 7 0RF bumetanide 0.5 mg tablet 0.5 mg PO BID Qty: 14 0RF potassium chloride [Klor-Con M20] 20 mEq tablet,ER particles/crystals 20 meq PO DAILY Qty: 7 0RF Follow Up/Referrals: Mary Fowler DO [Primary Care Provider] - Stand Alone Forms: MyHealth Info Instructions
--- NOTE | 2024-07-21 15:03 | CRLHL7_ITS ---
For Patients: As a result of the Century Cures Act, medical imaging exams and procedure reports are released immediately into your electronic medical record. You may view this report before your referring provider. If you have questions, please contact your health care provider. INDICATION: Shortness of breath. Dyspnea on exertion. COMPARISON: 07/18/2024 TECHNIQUE: 2 views. FINDINGS: Medical Devices: None. Lung Volumes: Adequate inspiration. No significant atelectasis. Lungs: Clear lungs. Pleura and Pleural spaces: No significant pleural effusion. No pneumothorax. Mediastinum: Normal cardiomediastinal silhouette. Bony Thorax and Soft Tissues: No significant incidental findings. IMPRESSION: No findings to explain the clinical history. Dictated by Juan Bermudez MD @ 07/21/2024 3:38:15 PM (Electronically Signed)
[2024-07-21 15:19] LABS: Basophils Absolute Auto 0.02 K/uL (0.00-0.30); Basophils Percent Auto 0.2 % (0.0-3.0); Eosinophils Percent Auto 4.9 % (0.0-7.0); Hemoglobin* 14.9 gm/dL (13.5-17.5); Immature Granulocytes Abs Auto 0.01 K/uL (0.00-0.30); Immature Granulocytes Pct Auto 0.1 %; Lymphocytes Absolute Auto 1.66 K/uL (0.90-2.90); Lymphocytes Percent Auto 20.4 % (20-44); Mean Corpuscular HGB Conc 32 gm/dL (32-36); Mean Corpuscular Hemoglobin 28 pg (26-34); Mean Corpuscular Volume 89 fL (80-100); Monocytes Percent Auto 6.5 % (0.0-11.0); Neutrophils Absolute Auto 5.52 K/uL (1.7-7.0); Neutrophils Percent Auto 67.9 % (42.0-72.0); Platelet Count* 119 K/uL (140-440); RDW Coefficient of Variation % 13.5 % (11.5-15.5); Red Blood Count 5.29 m/uL (4.30-5.90); White Blood Count* 8.14 K/uL (4.50-11.00)
[2024-07-21 15:35] LABS: Slide Review Reflex No
[2024-07-21 15:38] LABS: Chloride* 101 mmol/L (96-114); Potassium* 3.9 mmol/L (3.6-5.1); Sodium* 139 mmol/L (135-149)
[2024-07-21 15:41] LABS: Anion Gap 4 mEq/L (7-15); Blood Urea Nitrogen* 10 mg/dL (5-24); Calcium* 8.8 mg/dL (8.4-10.6); Carbon Dioxide* 34 mmol/L (20-32); Creatinine* 0.8 mg/dL (0.5-1.5); Est. Creatinine Clearance* 132.04; Estimated Glomerular Filt Rate 115 ml/min; Glucose* 102 mg/dL (60-115)
[2024-07-21 15:54] LABS: Troponin I* 0.03 ng/mL (0.01-0.04)
[2024-07-21 16:05] LABS: NT Pro B Type NatriureticPept* 58 pg/mL
[2024-07-21] MEDS: FUROSEMIDE 10 MG/ML inj 40 MG IVP (16:35)
== END 2024-07-21 17:17 | disposition home or self-care (01) ==
PROVIDERS: Emergency Provider Emergency Medicine; PCP Family Medicine
DX: I10 Essential (primary) hypertension (principal); R60.9 Edema, unspecified; R06.02 Shortness of breath
CPT/HCPCS: 36415; 71046; 80048; 83880; 84484; 85025; 96374; 99283; 99284; J1938

== ENCOUNTER 2024-12-20 19:20 | Emergency (ER) | payer BC, SELFPAY ==
--- OUTSIDE RECORDS SUMMARY | 2024-12-20 19:22 | XMS_ITS | Clinical Summary ---
Author Organization [facility] Address [address] [place] [id number] Care Team Providers Care Warehouse Engineer Name Role Phone Malcolm, Maryernst Burdick Primary Care Provider [phone] Allergies Active Allergy Reactions Criticality Noted Date Comments Unlisted Allergen (Include Detail In Comments) Rash Unknown 04/23/2018 Odell - Rash on Upper Extremity Medications * This document contains information received from the source organization and may not represent a complete record from that organization. BiPapIndications:O SA (obstructive sleep apnea),Hypoventila tion associated with obesity syndrome (HC) Replacement Bipap auto, E min 13, I max 25, with a pressure support min 4-max 8. . Heated humidifer, full face mask, headgear, filters and tubing. For home use. Length of need: lifetime. 1 Each 08/10/19 24 Active miscellaneous medical supply (Blood Pressure Cuff) miscIndications:Hy pertension As directed. 1 Each 12/07/19 24 Active lisinopriL 40 mg tabletIndications: Hypertension Take 1 Tablet (40 mg) by mouth once daily. 90 Tablet 07/28/19 25 Active aspirin chewable 81 mg chewable tabletIndications: Mixed hyperlipidemia Chew 1 Tablet (81 mg) by mouth once daily with a meal. 100 Tablet 3 07/28/19 25 Active metoprolol succinate 50 mg sustained-release tabletIndications: Hypertension Take 1 Tablet (50 mg) by mouth once daily. 90 Tablet 1 07/28/19 25 Active allopurinoL 100 mg tabletIndications: Gout of right ankle, unspecified cause, unspecified chronicity Take 1 Tablet (100 mg) by mouth once daily. 90 Tablet 1 07/29/19 25 Active bumetanide 1 mg tabletIndications: Hypertension,Pulmo nary hypertension (HC) Take 2 Tablets (2 mg) by mouth two times daily. 120 Tablet 1 09/02/19 25 Active spironolactone 25 mg tabletIndications: Hypertension Take 1 Tablet (25 mg) by mouth once daily in the morning. 30 Tablet 1 11/03/19 25 Active semaglutide (weight loss) (Wegovy) 0.5 mg/0.5 mL subcutaneous penIndications:Mor bid obesity (HC) Inject 0.5 mg subcutaneous once weekly for 28 days. 2 mL 12/13/19 25 025 Active semaglutide (weight loss) (Wegovy) 1 mg/0.5 mL subcutaneous penIndications:Mor bid obesity (HC) Inject 1 mg subcutaneous once weekly for 28 days. 2 mL 01/10/20 25 025 Active semaglutide (Wegovy) 0.25 mg/0.5 mL subcutaneous penIndications:Mor bid obesity (HC) Inject 0.25 mg subcutaneous once weekly for 28 days. 2 mL 11/15/19 25 025 Active Problems Patient Care Coordination No te Formatting of this note migh t be different from the original. Bariatric Manual provided Problem Noted Date Diagnosed Date Hypertriglyceridemia 11/02/2024 Prediabetes 11/02/2024 Left ventricular hypertrophy 08/03/2024 Overview (08/03/2024): Seen on Echo Morbid obesity 07/27/2024 Overview (07/27/2024): AI Summary: As of 12/07/23: The patient has a history of morbid obesity, with a BMI consistently above 60 kg/m in multiple measurements between 03/10/2023 and 12/07/2023. Associated conditions mentioned include hypoventilation associated with obesity syndrome, hypertension, obstructive sleep apnea, and diastolic heart failure. The patient's morbid obesity was a reason for encounter on multiple occasions, and management included HbA1c screening on 12/07/2023; medications for THANG and hypoventilation associated with obesity syndrome were continued as of 03/11/2023. 03/26/23: BMI 64.45 kg/m2 12/07/23: Wt 238.3 kg Recent encounter dx: 12/07/23: Appointment - [facility] 03/23/23: Hospital Encounter - [facility] Med Surg, Med Surg (from [place]) 10/12/20: Appointment - [facility] 09/13/20: Appointment - [facility] 08/31/20: Appointment - [facility] Recent studies: 09/25/20: CT ABDOMEN PELVIS W by Cameron Chapman MD, Santo Vo MD ... [+] IMPRESSION: 1. Morbid obesity causes limitations of image quality and diagnostic sensitivity. No acute finding appreciated. 2. Moderate hepatic steatosis. Moderate hepatosplenomegaly Please note that all CT scans at this facility use dose modulation, iterative reconstruction, and/or weight-based dosing when appropriate to reduce radiation dose to as low as reasonably achievable. ... [+] Morbid obesity causes limitations of image quality and diagnostic sensitivity. Recent notes: 12/07/23: Progress Notes - Nursing Notes by Mary Fowler DO ... [+] Morbid obesity (HC) E66.01 HEMOGLOBIN A1C SCREENING 03/26/23: Discharge Summaries - Discharge Summary by Mis Arroyo MD (from [place]) ... [-] Obesity Hypoventilation syndrome ... [+] # Severe Obesity: Estimated body mass index is 64.45 kg/m as calculated from the following: ... [+] Associated Diagnoses: Morbid obesity (H) 03/25/23: Progress Notes by Mis Arroyo MD (from [place]) ... [+] # Severe Obesity: Estimated body mass index is 63.8 kg/m as calculated from the followin03/24/23: Consult Notes - Consults by Diya Blanton MD (from [place]) ... [-] Morbid obesity 03/24/23: Progress Notes by Mis Arroyo MD (from [place]) ... [+] # Severe Obesity: Estimated body mass index is 66.98 kg/m as calculated from the following: Gout of right ankle 12/07/2023 Hypoventilation associated with obesity syndrome 03/11/2023 Overview (03/11/2023): THANG, requires bipap Pulmonary hypertension 03/11/2023 Chronic heart failure with preserved ejection fr action 08/23/2020 Hypertensive emergency 08/22/2020 Osteochondritis dissecans of [...] Encounters Date Type Department Care Team Description 12/19/[address] [facility] [address] [place] [address] Milly Das RN Leg Swelling 12/05/2024 1:20 PM CDT Nurse/Clinic Staff Only [facility] [address] [place] [address] Blood Pressure 12/05/2024 1:00 PM CDT Orders Only [facility] [address] [place] [address] Lab, [place] [facility] 12/05/[address] [facility] [address] [place] [address] Mary Fowler, DO High Blood Pressure 12/05/2024 Travel 11/28/[address] [facility] [address] [place] [address] Mary Fowler, DO Medication Management 11/15/[address] [facility] [address] [place] [address] Mary Fowler, DO Prior Authorization (semaglutide (Wegovy) 0.25 mg/0.5 mL subcutaneous pen APPROVED 08/18/24-05/19/25) 11/04/[address] [facility] [address] [place] [address] Mary Fowler, DO Medication Management 11/04/[address] [facility] [address] [place] [address] Mary Fowler, DO Prior Authorization (tirzepatide (weight loss) (Zepbound) 2.5 mg/0.5 mL pen - (APPEAL) DENIED) 11/02/2024 1:10 PM CDT Office Visit [facility] [address] [place] [address] Mary Fowler, DO Weight (believes weight loss will help with mood. ) 11/02/2024 Travel from Last 3 Months Immunizations Immunization [...] Date Smoking Tobacco: Every Day Cigarettes 1 20.7 Started: 2004 Smokeless Tobacco: Never Tobacco Cessation:Ready to Q uit: Not Asked; Counseling Given: Not Answered Comments:TIP visit done 08/28/20, 10/12/14 Alcohol Use Standard Drinks/Week Comments Not Currently 0 (1 standard drink = 0.6 oz pur e alcohol) sober 2 years PHQ-2 Answer Date Recorded PHQ-2 TOTAL SCORE 6 07/27/2024 Social Connections Answer Date Recorded Do you [...] on file Legal Sex Male 6:16 AM DIRECTOR INTERNAL COMMUNICATIONS Gender Identity Not on file Sexual Orientation Not on file 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 file Not on file Not on file Obstetrics History Last Filed Vital Signs Vital Sign Reading Time Taken Comments Blood Pressure 176/85 12/05/2024 1:38 PM CDT Pulse 85 12/05/2024 1:38 PM CDT Temperature 36.7 C (98 F) 03/11/2023 7:57 AM DIRECTOR INTERNAL COMMUNICATIONS Respiratory Rate 18 03/11/2023 7:57 AM DIRECTOR INTERNAL COMMUNICATIONS Oxygen Saturation 92% 08/15/2024 8:54 AM CDT Inhaled Oxygen Concentration - - Weight 236.8 kg (522 lb) 11/02/2024 1:29 PM CDT Height 180.3 cm (5' 11) 08/15/2024 8:54 AM CDT Body Mass Index 72.8 08/15/2024 8:54 AM CDT Plan of Treatment Upcoming Encounters Date Type Department Care Team (Late st Contact Info) Description 02/02/2025 12:45 PM CDT Office Visit [facility] [address] [place] [address] Mary Fowler DO [address] [place] [address] Health Maintenance Due Date Last Done Comments HIV for age 15-65 10/30/1999 Hepatitis C screening for ag e 18-79 2002 Hepatitis B series for 19+ ( 1 of 3 - 19+ 3-dose series) 10/30/2003 Pneumococcal series for age 6-49 (1 of 2 - PCV) 10/30/2003 HPV series for age 9-45 (1 - 3-dose SCDM series) 10/30/2011 COVID-19 vaccine series ( - 2023- season) 2024 Influenza Vaccine (#1) 2024 Depression screening for age 12+ 07/27/2025 07/27/2024, 01/29/2024, 01/29/2024, Additional history exists BMI (ht and wt on same day) for age 18+ 08/15/2025 08/15/2024, 07/18/2024, 09/13/2020, Additional history exists Tetanus booster 09/19/2026 09/19/2016 Lipids for age 35-44 12/06/2028 12/07/2023, 09/23/2019, 03/21/2016 RSV vaccine for adults or (1 - 1-dose 75+ series) 10/30/2059 Procedures Procedure Name Priority Date/Time Associated Diagnosis Comments BASIC METABOLIC PANEL Routine 12/05/2024 1:19 PM CDT Hypertension CBC W PLT NO DIFF Routine 12/05/2024 1:1 9 PM CDT Low platelet count LIPID PANEL W REFLEX MEASURED LDL Routine 12/07/2023 3:21 PM CDT Morbid obesity (HC) from Last 3 Months or Most Recently Relevant to Health Maintenance Results * CBC W PLT NO DIFF (12/05/2024 1:19 PM CDT) Pathologist [facility] WHITE BLOOD CELL COUNT 7.1 3.8 - 10.8 Thousand/u L 12/06/2024 4:20 AM CDT [facility] RED BLOOD CELL COUNT 5.28 4.20 - 5.80 Million/uL 12/06/2024 4:20 AM CDT [facility] HEMOGLOBIN 15.4 13.2 - 17.1 g/dL 12/06/2024 4:20 AM CDT [facility] HEMATOCRIT 47.5 38.5 - 50.0 % 12/06/2024 4:20 AM CDT [facility] MCV 90.0 80.0 - 100.0 fL 12/06/2024 4:20 AM CDT [facility] MCH 29.2 27.0 - 33.0 pg 12/06/2024 4:20 AM CDT [facility] MCHC 32.4 32.0 - 36.0 g/dL 12/06/2024 4:20 AM CDT [facility] Comment: For adults, a slight decrease in the calculated MCHC value (in the range of 30 to 32 g/dL) is most likely not clinically significant; however, it should be interpreted with caution in correlation with other red cell parameters and the patient's clinical condition. RDW 14.0 11.0 - 15.0 % 12/06/2024 4:20 AM CDT [facility] PLATELET COUNT 142 140 - 400 Thousand/u L 12/06/2024 4:20 AM CDT [facility] MPV 12.0 7.5 - 12.5 fL 12/06/2024 4:20 AM CDT [facility] Blood BLOOD SPECIMEN / Unknown [facility] / Unknown 12/05/2024 1:19 PM CDT 12/05/2024 1:19 PM CDT us Mary Fowler DO HEMATOLOGY Final Resu lt [facility] [address] [place] [address], [place] [phone] * (ABNORMAL) BASIC METABOLIC PANEL (12/05/2024 1:19 PM CDT) SODIUM 143 135 - 146 mmol/L 12/06/2024 4:53 AM CDT [facility] POTASSIUM 4.1 3.5 - 5.3 mmol/L 12/06/2024 4:53 AM CDT [facility] CARBON DIOXIDE 29 20 - 32 mmol/L 12/06/2024 4:53 AM CDT [facility] GLUCOSE 110(H) 65 - 99 mg/dL 12/06/2024 4:53 AM CDT [facility] Comment: Fasting reference interval For someone without known diabetes, a glucose value between 100 and 125 mg/dL is consistent with prediabetes and should be confirmed with a follow-up test. CALCIUM 9.1 8.6 - 10.3 mg/dL 12/06/2024 4:53 AM CDT [facility] CREATININE 1.13 0.60 - 1.29 mg/dL 12/06/2024 4:53 AM CDT [facility] BUN/CREATININE RATIO SEE NOTE: 6 - 22 (calc) 12/06/2024 4:53 AM CDT [facility] Comment: Not Reported: BUN and Creatinine are within reference range. EGFR 84 > OR = 60 mL/min/1. 73m2 12/06/2024 4:53 AM CDT [facility] UREA NITROGEN (BUN) 14 7 - 25 mg/dL 12/06/2024 4:53 AM CDT [facility] ELECTROLYTE BALANCE 8 7 - 17 mmol/L (calc) 12/06/2024 4:53 AM CDT [facility] CHLORIDE 106 98 - 110 mmol/L 12/06/2024 4:53 AM CDT [facility] Blood BLOOD SPECIMEN / Unknown [facility] / Unknown 12/05/2024 1:19 PM CDT 12/05/2024 1:19 PM CDT us Mary Fowler DO CHEMISTRY Final Resu lt [facility] [place] [facility] [place] [address], * (ABNORMAL) LIPID PANEL W REFLEX MEASURED LDL (12/07/2023 3:21 PM CDT) CHOLESTEROL,TOTAL 190 100 - 199 mg/dL 12/07/2023 11:23 PM CDT [facility] Comment: Cholesterol, Total Reference Ranges Desirable <200 mg/dL Borderline 200-239 mg/dL High >=240 mg/dL TRIGLYCERIDES 349(H) <150 mg/dL 12/07/2023 11:23 PM CDT [facility] HDL CHOLESTEROL 31(L) >40 mg/dL 11:23 PM CDT [facility] NON-HDL CHOLESTEROL 159(H) <145 mg/dl 12/07/2023 11:23 PM CDT [facility] CHOL/HDL RATIO 6.13(H) <4.50 12/07/2023 11:23 PM CDT [facility] LDL CHOLESTEROL 89 <=130 mg/dL 12/07/2023 11:23 PM CDT [facility] VLDL CHOLESTEROL 70(H) <=30 mg/dL 12/07/2023 11:23 PM CDT [facility] PROVIDER ORDERED STATUS RANDOM 12/07/2023 11:23 PM CDT [facility] Blood BLOOD SPECIMEN / Unknown Venipuncture / Unknown 12/07/2023 3:21 PM CDT 12/07/2023 3:21 PM CDT us Mary Fowler DO CHEMISTRY Final Resu lt [facility] [address] [place] [address], from Last 3 Months or Most Recently Relevant to Health Maintenance Additional Health Concerns Infection Onset Date Last Indicated MRSA 03/11/2023 03/11/2023 Insurance [facility] [employer] COMP Advance Directives * Full Code (Latest Code [...] 2:45 AM 10/10/2014 7:37 PM Care Teams Warehouse Engineer Relationship Specialty Start Date End Date Mary Fowler DO [address] [place] [address] PCP - General Family Practice 01/21/24
[2024-12-20 19:49] VITALS: BP 126/83; PULSE 99; RESP 26; TEMP 36.4; O2SAT 96; BMI 73.9
--- NOTE | 2024-12-20 20:55 | ED.GENADULT ---
HPI - General Adult General Chief complaint: Lower Extremity Swelling Stated complaint: left leg swelling Time Seen by Provider: 12/20/24 20:52 History of Present Illness HPI narrative: Patient here with redness and pain and swelling in LLE . States he always has some swelling but pain and redness started on Thursday. History of CHF. No history of blood clots. 39-year-old man presenting to the emergency department with concern of left leg swelling. Is often swollen but what was more concerning was the degree of redness which seems to be gone 2 days ago. He started elevating and wrapping it and now the pain is more. Has not had a fever but has felt a little short of breath. No chest pain. Never had clots here before. Has been starting to walk more trying to engage in a weight loss program. Admittedly the redness has improved a little bit but this pain has escalated. Does not feel like he needs pain medication at this time however. Related Data Home Medications ?Medication ?Instructions ?Recorded ?Confirmed aspirin 81 mg chewable tablet 1 tab PO DAILY 12/20/24 12/20/24 metoprolol succinate 50 mg 50 mg PO DAILY 12/20/24 12/20/24 tablet,extended release 24 hr semaglutide (weight loss) 0.5 mg subcut 12/20/24 mg/0.5 mL subcutaneous pen injector (Webalbirvkathrin) spironolactone 25 mg tablet 25 mg PO DAILY 12/20/24 12/20/24 Previous Rx's ?Medication ?Instructions ?Recorded bumetanide 0.5 mg tablet 0.5 mg PO BID #14 tabs 07/18/24 lisinopril 40 mg tablet 40 mg PO DAILY #7 tabs 07/18/24 potassium chloride 20 mEq 20 meq PO DAILY #7 tabs 07/18/24 tablet,extended release(part/cryst) (Klor-Con M) Allergies Allergy/AdvReac Type Severity Reaction Status Date / Time concrete Allergy Unknown Uncoded 01/27/24 13:08 Review of Systems Status of ROS: Reports: 6 or more systems reviewed and unremarkable except as noted in History and below [facility] Social History Smoking Status: Current every day smoker What tobacco products do you use: cigarettes Smoking packs per day: 1 Smoking cigarettes per day: 20.0 How often do you have a drink containing alcohol: never AUDIT-C Alcohol total score: 0 Non-prescribed substance use: denies use Exam Narrative: Exam Narrative: Very pleasant man. Accompanied by walker. Markedly swollen left lower leg. Thigh as well. Moderate erythema, and mild calor involve most of the left lower leg. Lymphedema bilaterally with left greater than right. Right leg more noticeable for diffuse varicosities. Also generally swollen but not with the tension that is present on left. Mildly labored in his breathing. Pulse elevated as well in regular rhythm. He is wearing an N95 mask. There are some irregular sores that have been crusted over on bilateral mask edge. Two on each side about a cm and half in diameter each. No yellowing crusting. Const: Vital Signs, click to edit/add: Vital Signs - 24 hr 12/20/24 19:49 Temperature 97.6 F Pulse Rate [Pulse Oximeter] 99 Respiratory Rate 26 H Blood Pressure [Ri ght Upper Arm] 126/83 Pulse Oximetry 96 Oxygen Delivery Me thod Room Air Documenting provider has reviewed patient's vital signs: yes Course Vital Signs Vital signs: Initial Vital Signs Temperature 97.6 F 12/20/24 19:49 Temperature Source Temporal Artery Scan 12/20/24 19:49 Pulse Rate 99 12/20/24 19:49 Respiratory Rate 26 H 12/20/24 19:49 Blood Pressure 126/83 12/20/24 19:49 Blood Pressure Mean 97 12/20/24 19:49 Blood Pressure Position Sitting 12/20/24 19:49 Pulse Oximetry 96 12/20/24 19:49 Oxygen Delivery Method Room Air 12/20/24 19:49 Vital Signs Temperature 97.6 F 12/20/24 19:49 Pulse Rate 99 12/20/24 19:49 Respiratory Rate 26 H 12/20/24 19:49 Blood Pressure 126/83 12/20/24 19:49 Pulse Oximetry 96 12/20/24 19:49 Oxygen Delivery Method Room Air 12/20/24 19:49 Temperature 97.6 F 12/20/24 19:49 Pulse Rate 99 12/20/24 19:49 Respiratory Rate 26 H 12/20/24 19:49 Blood Pressure 126/83 12/20/24 19:49 Pulse Oximetry 96 12/20/24 19:49 Oxygen Delivery Method Room Air 12/20/24 19:49 Medical Decision Making MDM Narrative Medical decision making narrative: Did have ring striker already in department. I think it would be prudent to check for DVT though does have appearance also of cellulitis. Unfortunate degree of lymphedema that certainly would predispose to either issue. Depending on ultrasound visualization ability due to degree of swelling in the left leg may have to do IV contrasted CT imaging. I would also collect blood cultures here. Had obtained blood and 1 set of cultures. Were moving toward doing this ultrasound when Mr. Kennedy informed us that he would be leaving the emergency department requesting removal of the IV that had been placed in the right antecubital fossa. He reports being offended by conversation he has overheard in the department. I am not able to obtain clarity on what exactly was overheard nor from whom, but he is clear that he will be going to another area emergency department and refusing further cares here against medical advice. He was ambulatory from the emergency department. I am concerned about appearance of his left leg. Will likely require hospitalization and antibiotics to turn this around. Some labs were pending at the time of departure. I did call to inform [facility] physician where he said he was going of my concerns regarding Mr. Kennedy's health. They intend to redraw all labs at this point. See patient discharge plan for further discussion I am sorry you experienced this today. I hope you find good care yet at [facility] as you intend Medical Records Medical records reviewed: Yes I reviewed the patient's medical records Lab Data Lab results reviewed: Yes I reviewed the patient's lab results Labs: Lab Results 12/20/24 Range/Units 21:10 WBC 16.15 H (4.50-11.00) K/uL RBC 5.40 (4.30-5.90) m/uL Hgb 15.6 (13.5-17.5) gm/dL Hct 47.8 (37.0-53.0) % MCV 89 (80-100) fL MCH 29 (26-34) pg MCHC 33 (32-36) gm/dL RDW Coeff of Octavia 13.8 (11.5-15.5) % Plt Count 200 (140-440) K/uL Neut % (Auto) 82.4 H (42.0-72.0) % Lymph % (Auto) 9.7 L (20-44) % Pima % (Auto) 7.2 (0.0-11.0) % Eos % (Auto) 0.1 (0.0-7.0) % Baso % (Auto) 0.2 (0.0-3.0) % Neut # (Auto) 13.30 H (1.7-7.0) K/uL Lymph # (Auto) 1.60 (0.90-2.90) K/uL Pima # (Auto) 1.20 H (0.00-0.90) K/UL Eos # (Auto) 0.00 (0.00-0.50) K/uL Baso # (Auto) 0.00 (0.00-0.30) K/uL Abs Immat Gran (auto) 0.10 (0.00-0.30) K/uL Imm/Tot Granulo (auto) 0.4 % D-Dimer Quant (PE/DVT) 1.25 H (0.00-0.50) ug/ml Sodium 135 (135-149) mmol/L Potassium 3.8 (3.6-5.1) mmol/L Chloride 97 (96-114) mmol/L Carbon Dioxide 28 (20-32) mmol/L Anion Gap 10 (7-15) mEq/L BUN 33 H (5-24) mg/dL Creatinine 2.7 H (0.5-1.5) mg/dL Estimated Creat Clear 38.73 Estimated GFR 30 ml/min Glucose 116 H (60-115) mg/dL Calcium 9.3 (8.4-10.6) mg/dL C-Reactive Protein 33.5 H (0.5-1.0) mg/dL Discharge Plan Discharge Clinical Impression: Lymphedema, Cellulitis Patient Disposition: Left Against Medical Advice Condition: Stable Additional Instructions: I am sorry you experienced this today. I hope you find good care yet at [facility] as you intend Prescriptions: No Action lisinopril 40 mg tablet 40 mg PO DAILY Qty: 7 0RF bumetanide 0.5 mg tablet 0.5 mg PO BID Qty: 14 0RF potassium chloride [Klor-Con M20] 20 mEq tablet,ER particles/crystals 20 meq PO DAILY Qty: 7 0RF spironolactone 25 mg tablet 25 mg PO DAILY Wegovy 0.5 mg/0.5 mL pen injector subcut metoprolol succinate 50 mg tablet extended release 24 hr 50 mg PO DAILY aspirin 81 mg tablet,chewable 1 tab PO DAILY Follow Up/Referrals: Mary Fowler DO [Primary Care Provider, Family Practice] Stand [facility]: [facility] Instructions
[2024-12-20 21:50] LABS: Chloride* 97 mmol/L (96-114); Potassium* 3.8 mmol/L (3.6-5.1); Sodium* 135 mmol/L (135-149)
[2024-12-20 21:53] LABS: Blood Urea Nitrogen* 33 mg/dL (5-24); Creatinine* 2.7 mg/dL (0.5-1.5); Est. Creatinine Clearance* 38.73; Estimated Glomerular Filt Rate 30 ml/min
[2024-12-20 21:54] LABS: Anion Gap 10 mEq/L (7-15); Calcium* 9.3 mg/dL (8.4-10.6); Carbon Dioxide* 28 mmol/L (20-32); Glucose* 116 mg/dL (60-115)
[2024-12-20 21:56] LABS: Hematocrit* 47.8 % (37.0-53.0); Hemoglobin* 15.6 gm/dL (13.5-17.5); Immature Granulocytes Pct Auto 0.4 %; Mean Corpuscular HGB Conc 33 gm/dL (32-36); Mean Corpuscular Hemoglobin 29 pg (26-34); Mean Corpuscular Volume 89 fL (80-100); RDW Coefficient of Variation % 13.8 % (11.5-15.5); Red Blood Count* 5.40 m/uL (4.30-5.90); White Blood Count* 16.15 K/uL (4.50-11.00)
[2024-12-20 22:01] LABS: Immature Granulocytes Abs Auto 0.10 K/uL (0.00-0.30); Lymphocytes Absolute Auto 1.60 K/uL (0.90-2.90); Slide Review Reflex No
[2024-12-20 22:34] LABS: D Dimer Quantitative* 1.25 ug/ml (0.00-0.50)
== END 2024-12-20 22:33 | disposition left against medical advice (07) ==
PROVIDERS: Emergency Provider Family Medicine; PCP Family Medicine
DX: L03.116 Cellulitis of left lower limb (principal); I89.0 Lymphedema, not elsewhere classified
CPT/HCPCS: 36415; 80048; 85025; 85379; 86140; 87040; 99283; 99284

== ENCOUNTER 2024-12-22 14:21 | Outpatient (CLI) | payer BC, SELFPAY | END 2024-12-22 14:22 | disposition home or self-care (01) | LOC: AMB 12-23 11:43 | PROVIDERS: PCP Family Medicine; Visit Provider Emergency Medicine | DX: M79.605 Pain in left leg (principal); R22.42 Localized swelling, mass and lump, left lower limb | CPT/HCPCS: A0425; A0429 ==

== ENCOUNTER 2025-01-16 15:17 | Outpatient (CLI) | payer BC, SELFPAY | END 2025-01-16 15:18 | disposition home or self-care (01) | LOC: AMB 01-18 10:05 | PROVIDERS: PCP Family Medicine; Visit Provider Emergency Medicine | DX: M79.605 Pain in left leg (principal); R22.42 Localized swelling, mass and lump, left lower limb | CPT/HCPCS: A0425; A0429 ==

== ENCOUNTER 2025-01-18 09:46 | Emergency (ER) | payer BC, SELFPAY ==
[2025-01-18 09:49] VITALS: BP 169/108; PULSE 77; RESP 22; TEMP 36.3; O2SAT 96
--- NOTE | 2025-01-18 09:50 | ED.GENADULT ---
HPI - General Adult General Date Seen: 01/18/25 Chief complaint: Groin Pain Stated complaint: Groin pain Time Seen by Provider: 01/18/25 09:50 History of Present Illness HPI narrative: 39-year-old male with a history of hypertension, elevated BMI, hypoventilation due to obesity syndrome, sleep apnea, smoking, bilateral lower extremity lymphedema, pulmonary hypertension, diastolic CHF. He was in the ER on December with redness and swelling of his left lower extremity. Per notes he had a markedly swollen left lower leg and thigh moderate erythema and mild warmth of the left lower leg. Bilateral lymphedema left greater than right. Or he went to the ER at [facility] and then was transferred to [facility] for admission for a left lower extremity cellulitis. He says he was in the hospital for about 3 weeks and was just discharged after completing antibiotics RO at the end of December. He also notes that his hospitalization was prolonged because his doctors were trying to diurese Lue it out of his legs and a couple of times they over diuresed him and caused an acute kidney injury and low blood pressures. It sounds like he lost a total of about 30 lb while in hospital. He has home visiting nurses who help him do dressing changes for his leg. It sounds like he has a sore that was about the size of a golf ball in his left calf and some chronic edema and redness there. He went back to the ER at [facility] 3 days ago on Thursday because he felt like his left leg might be getting redder again. He was checked out of [facility] and was reassured and sent home. Beginning yesterday he started to have some burning with urination especially some burning pain at the tip of his penis. Today he also started developing intermittent pain in his right testicle and right flank. This comes and goes without a clear pattern. He does not think there is any swelling or redness of his testicle or scrotum. No rashes on the groin. No fever. He was nauseous prior to arrival but did not vomit no left-sided pain. Stools have been normal. Related Data Home Medications ?Medication ?Instructions ?Recorded ?Confirmed aspirin 81 mg chewable tablet 1 tab PO DAILY 12/20/24 01/18/25 metoprolol succinate 50 mg 50 mg PO DAILY 12/20/24 01/18/25 tablet,extended release 24 hr semaglutide (weight loss) 0.5 mg subcut 12/20/24 12/21/24 mg/0.5 mL subcutaneous pen injector (Wegovy) Held on 01/18/25. Instructions: due to infection in leg spironolactone 25 mg tablet 25 mg PO DAILY 12/20/24 01/18/25 bumetanide 1 mg tablet 1 mg PO DAILY 12/21/24 01/18/25 semaglutide (weight loss) 0.25 mg subcut 12/21/24 12/21/24 mg/0.5 mL subcutaneous pen injector (Wegovy) Held on 01/18/25. Instructions: Order Change methocarbamol 500 mg tablet PO 01/18/25 oxycodone 5 mg tablet PO 01/18/25 Previous Rx's ?Medication ?Instructions ?Recorded bumetanide 0.5 mg tablet 0.5 mg PO BID #14 tabs 07/18/24 lisinopril 40 mg tablet 40 mg PO DAILY #7 tabs 07/18/24 potassium chloride 20 mEq 20 meq PO DAILY #7 tabs 07/18/24 tablet,extended release(part/cryst) (Klor-Con M) cefdinir 300 mg capsule 300 mg PO BID 10 days #20 caps 01/18/25 Allergies Allergy/AdvReac Type Severity Reaction Status Date / Time concrete Allergy Unknown Uncoded 12/21/24 16:39 [facility] Social History Smoking Status: Current every day smoker What tobacco products do you use: cigarettes Smoking packs per day: 1 Smoking cigarettes per day: 20.0 How often do you have a drink containing alcohol: never AUDIT-C Alcohol total score: 0 Non-prescribed substance use: denies use Exam Narrative: Exam Narrative: Constitutional: Appears well-developed. over-nourished. Alert. Conversant. Non toxic. HENT: Head: Atraumatic. Nose: Nose normal. Mouth/Throat: Oral mucosa is clear and moist. no trismus. Pharynx normal. Eyes: Conjunctivae normal. EOM normal. Pupils equal, round, and reactive to light. No scleral icterus. Neck: Normal range of motion. Neck supple. No tracheal deviation present. Cardiovascular: Normal rate, regular rhythm. No gallop. No friction rub. No murmur heard. Symmetric radial artery pulses Pulmonary/Chest: Effort normal. No stridor. No respiratory distress. No wheezes. No rales. No rhonchi . No tenderness. Abdominal: Soft. Bowel sounds normal. No distension. No mass. No tenderness. No rebound. No guarding. He says he has been having intermittent right flank tenderness but is not tender at this time. : Skin of the fold under his pannus and in the groin creases actually looks very good. No redness or signs of Kailyn or other infection. Because of his body habitus it is difficult to see his penis. I am able to push back on the mons pubis enough to barely see the tip of the glans which looks normal. I do not see any signs of redness on the foreskin of the penis to suggest a balanitis or phimosis or paraphimosis. Skin of the scrotum is normal. Testicles are symmetric in size and normal in position and nontender. I do not see any scrotal erythema. No erythema of the perineal skin. No signs of cellulitis or Chaz's gangrene Musculoskeletal: RUE: Normal range of motion. No tenderness. No deformity LUE: Normal range of motion. No tenderness. No deformity RLE: Normal range of motion. No edema. No tenderness. No deformity LLE: Normal range of motion. No edema. No tenderness. No deformity Lymph: No inguinal adenopathy. Neurological: Alert and oriented to person, place, and time. Normal strength. CN II-VII intact. No sensory deficit. GCS eye subscore is 4. GCS verbal subscore is 5. GCS motor subscore is 6. Normal coordination Skin: Skin is warm and dry. No rash noted. No pallor. Normal capillary refill. Psychiatric: Normal mood. Normal affect. Const: Vital Signs, click to edit/add: Vital Signs - 24 hr 01/18/25 09:49 01/18/25 13:32 01/18/25 15:30 Temperature 97.3 F L Pulse Rate 67 Pulse Rate [Pulse Oximeter] 77 73 Respiratory Rate 22 16 16 Blood Pressure 148/82 H Blood Pressure [Ri ght Upper Arm] 169/108 H 165/90 H Pulse Oximetry 96 94 94 Oxygen Delivery Me thod Room Air Room Air Room Air Course Course ED Course: Recheck-pain much improved after Dilaudid. Reevaluation(s) Reevaluation #1: Recheck still comfortable several hours after Dilaudid. No recurring pain. Vital Signs Vital signs: Initial Vital Signs Temperature 97.3 F L 01/18/25 09:49 Temperature Source Temporal Artery Scan 01/18/25 09:49 Pulse Rate 77 01/18/25 09:49 Respiratory Rate 22 01/18/25 09:49 Blood Pressure 169/108 H 01/18/25 09:49 Blood Pressure Mean 128 H 01/18/25 09:49 Blood Pressure Position Sitting 01/18/25 09:49 Pulse Oximetry 96 01/18/25 09:49 Oxygen Delivery Method Room Air 01/18/25 09:49 Vital Signs Temperature 97.3 F L 01/18/25 09:49 Pulse Rate 77 01/18/25 09:49 Respiratory Rate 22 01/18/25 09:49 Blood Pressure 169/108 H 01/18/25 09:49 Pulse Oximetry 96 01/18/25 09:49 Oxygen Delivery Method Room Air 01/18/25 09:49 Temperature 97.3 F L 01/18/25 09:49 Pulse Rate 73 01/18/25 15:30 Respiratory Rate 16 01/18/25 15:30 Blood Pressure 165/90 H 01/18/25 15:30 Pulse Oximetry 94 01/18/25 15:30 Oxygen Delivery Method Room Air 01/18/25 15:30 Medications Administered Medications: Discontinued Medications Generic Name Dose Route Start Last Admin Trade Name Freq PRN Reason Stop Dose Admin Hydromorphone HCl 0.5 mg 01/18/25 10:18 01/18/25 13:30 Hydromorphone 0.5 Mg/0.5 Ml Inj IVP 0.5 mg Q1H PRN Administration Pain Ceftriaxone Sodium 1 gm/ 100 mls @ 200 mls/hr 01/18/25 12:19 01/18/25 13:30 Sodium Chloride IVPB 01/18/25 12:20 Infused ONCE ONE Infusion Ondansetron HCl 4 mg 01/18/25 10:18 01/18/25 10:49 Ondansetron 2 Mg/Ml Inj IVP 01/18/25 10:19 4 mg ONCE ONE Administration Medical Decision Making MDM Narrative Medical decision making narrative: Pleasant 39-year-old gentleman with a complex past history including recent hospitalization for left lower extremity cellulitis, diastolic CHF, chronic kidney disease, morbid obesity presenting to the ER today with acute onset of right testicular and right flank pain today along with dysuria that began yesterday. Differential is broad. I am most concerned about possible kidney infection or kidney stone with pain referred to the right testicle. Urinalysis is abnormal with pyuria and hematuria. I felt the patient would be best to have a CT scan to look for possible obstructing kidney stone. However his weight exceeds the weight capacity of the CT scanner here in [place]. I discussed this with the patient. My initial recommendation was to transfer to a hospital in the [facility] such as [place] for they have a bariatric CT scanner that can accommodate him. I felt that CT would be the most sensitive way to look for an obstruction kidney stone. He strongly does not want to transferred [place] because does not have any way to get home from [place] if his tests are normal. We decided to at least get a renal ultrasound to see if there is any hydronephrosis. Renal ultrasound is normal showing no hydronephrosis and intact ureteral jets into the bladder bilaterally. At this point no evidence for any obstructing uropathy. We will treat him with Rocephin for probable UTI. Overall pain is dramatically improved after a low dose of Dilaudid given here in the ER. Given his recent hospitalization, I think he could be at risk risk for a complex UTI. At this point and he is safe to manage at home but will start his initial UTI therapy with a 3rd generation cephalosporin (Omnicef)rather than Keflex. Culture pending On clinical exam I do not see any signs of a skin cellulitis of the intertriginous folds or groin creases. No exam evidence for a scrotal cellulitis, Chaz's gangrene or any other testicular tenderness. We considered possible testicular pathology. Testicular ultrasound is negative for torsion, epididymitis, orchitis. Kidney function looks pretty good with a BUN of 26 and a creatinine of 1.2. He remains hemodynamically stable and afebrile. Will discharge home with a course of antibiotics. Precautions for return the ER reviewed. Need for follow-up reviewed. Lab Data Labs: Lab Results 01/18/25 01/18/25 Range/Units 10:20 10:30 WBC 10.55 (4.50-11.00) K/uL RBC 4.02 L (4.30-5.90) m/uL Hgb 11.9 L (13.5-17.5) gm/dL Hct 37.3 (37.0-53.0) % MCV 93 (80-100) fL MCH 30 (26-34) pg MCHC 32 (32-36) gm/dL RDW Coeff of Octavia 13.7 (11.5-15.5) % Plt Count 303 (140-440) K/uL Neut % (Auto) 79.5 H (42.0-72.0) % Lymph % (Auto) 12.0 L (20-44) % Daviess % (Auto) 5.7 (0.0-11.0) % Eos % (Auto) 2.0 (0.0-7.0) % Baso % (Auto) 0.3 (0.0-3.0) % Neut # (Auto) 8.40 H (1.7-7.0) K/uL Lymph # (Auto) 1.30 (0.90-2.90) K/uL Daviess # (Auto) 0.60 (0.00-0.90) K/UL Eos # (Auto) 0.21 (0.00-0.50) K/uL Baso # (Auto) 0.03 (0.00-0.30) K/uL Abs Immat Gran (auto) 0.05 (0.00-0.30) K/uL Imm/Tot Granulo (auto) 0.5 % Sodium 138 (135-149) mmol/L Potassium 4.4 (3.6-5.1) mmol/L Chloride 107 (96-114) mmol/L Carbon Dioxide 24 (20-32) mmol/L Anion Gap 7 (7-15) mEq/L BUN 26 H (5-24) mg/dL Creatinine 1.2 (0.5-1.5) mg/dL Estimated Creat Clear 84.49 Estimated GFR 78 ml/min Glucose 115 (60-115) mg/dL Lactate 1.1 (0.5-1.9) mmol/L Calcium 8.7 (8.4-10.6) mg/dL Urine Color Yellow (Yellow) Urine Appearance Cloudy A (Clear) Urine pH 5.5 (5.0-8.5) Ur Specific Tillman 1.020 (1.000-1.030) Urine Protein 2+ A (Negative) Urine Glucose (UA) Negative (Negative) Urine Ketones Negative (Negative) Urine Blood 3+ A (Negative) Urine Nitrite Negative (Negative) Urine Bilirubin Negative (Negative) Urine Urobilinogen 0.2 (0.2-1.0) Ur Leukocyte Esterase 1+ A (Negative) Urine RBC 50-100 A (0-2) Urine WBC 25-50 A (0-5) Ur Squamous Epith Cells Few (None-Few) Other Sediment Few A (None) Urine Bacteria Moderate A (None) Urine Yeast Few A (None) Imaging Data US renal: Attestation: I have reviewed the pertinent imaging results. Radiologist's impression: MPRESSION: Unremarkable renal ultrasound. No hydronephrosis or sonographically evident calculi. US Scrotum: Attestation: I have reviewed the pertinent imaging results. Radiologist's impression: Impression: Unremarkable ultrasound of the scrotum and contents. No sign of torsion or inflammation. Discharge Plan Discharge Clinical Impression: Acute UTI Patient Disposition: Home, Self-Care Condition: Stable Instructions: Urinary Tract Infection in Men (DC) Additional Instructions: As we discussed, you have signs of an infection in your urinary tract today. Please continue on the antibiotic (Omnicef) twice a day. If you have any worsening symptoms such as worsening or severe pain, fever, vomiting, weakness, or any problems, please return to the ER right away to be rechecked. Even if you are getting better, please recheck with your regular doctor within 3-5 days. Prescriptions: New cefdinir 300 mg capsule 300 mg PO BID 10 Days Qty: 20 0RF No Action bumetanide 1 mg tablet 1 mg PO DAILY Wegovy 0.25 mg/0.5 mL pen injector subcut Patient Comments: [NO ORIGINAL SIG] lisinopril 40 mg tablet 40 mg PO DAILY Qty: 7 0RF bumetanide 0.5 mg tablet 0.5 mg PO BID Qty: 14 0RF potassium chloride [Klor-Con M20] 20 mEq tablet,ER particles/crystals 20 meq PO DAILY Qty: 7 0RF spironolactone 25 mg tablet 25 mg PO DAILY Wegovy 0.5 mg/0.5 mL pen injector subcut metoprolol succinate 50 mg tablet extended release 24 hr 50 mg PO DAILY aspirin 81 mg tablet,chewable 1 tab PO DAILY methocarbamol 500 mg tablet PO oxycodone 5 mg tablet PO Follow Up/Referrals: Mary Fowler DO [Primary Care Provider, Family Practice] Stand Alone Forms: [facility] Info Instructions
[2025-01-18 10:39] LABS: Hematocrit* 37.3 % (37.0-53.0); Hemoglobin* 11.9 gm/dL (13.5-17.5); Immature Granulocytes Abs Auto 0.05 K/uL (0.00-0.30); Immature Granulocytes Pct Auto 0.5 %; Mean Corpuscular HGB Conc 32 gm/dL (32-36); Mean Corpuscular Hemoglobin 30 pg (26-34); Mean Corpuscular Volume 93 fL (80-100); RDW Coefficient of Variation % 13.7 % (11.5-15.5); Red Blood Count* 4.02 m/uL (4.30-5.90); White Blood Count* 10.55 K/uL (4.50-11.00)
[2025-01-18 10:44] LABS: Lymphocytes Absolute Auto 1.30 K/uL (0.90-2.90); Slide Review Reflex No
[2025-01-18 10:45] LABS: Lactate* 1.1 mmol/L (0.5-1.9)
[2025-01-18] MEDS: ONDANSETRON 2 MG/ML inj 4 MG IVP (10:49)
[2025-01-18 11:03] LABS: Chloride* 107 mmol/L (96-114); Potassium* 4.4 mmol/L (3.6-5.1); Sodium* 138 mmol/L (135-149)
[2025-01-18 11:06] LABS: Anion Gap 7 mEq/L (7-15); Blood Urea Nitrogen* 26 mg/dL (5-24); Calcium* 8.7 mg/dL (8.4-10.6); Carbon Dioxide* 24 mmol/L (20-32); Creatinine* 1.2 mg/dL (0.5-1.5); Est. Creatinine Clearance* 84.49; Estimated Glomerular Filt Rate 78 ml/min; Glucose* 115 mg/dL (60-115)
[2025-01-18 11:27] LABS: Appearance Urine Cloudy (Clear)
[2025-01-18 11:37] LABS: Other Sediment Urine Few
--- NOTE | 2025-01-18 12:29 | CRLHL7_ITS ---
For Patients: As a result of the Century Cures Act, medical imaging exams and procedure reports are released immediately into your electronic medical record. You may view this report before your referring provider. If you have questions, please contact your health care provider. INDICATION: Right flank pain TECHNIQUE: Ultrasound renal and bladder complete. Ferraro-scale and color Doppler sonographic images were acquired of the kidneys and urinary bladder. COMPARISON: None. FINDINGS: Somewhat suboptimal sonographic visualization secondary to body habitus. Right kidney: Size: 14.8 x 4.9 x 5.2 cm. Morphology: Normal echotexture and cortex. Masses: No suspicious mass. Stones: No. Hydronephrosis: No. Left kidney: Size: 15.1 x 6.1 x 6.5 cm. Morphology: Normal echotexture and cortex. Masses: No suspicious mass. Stones: No. Hydronephrosis: No. Bladder: Morphology: Normal in caliber and appearance. Not well-visualized post void. Ureteral jets: Visualized bilaterally. IMPRESSION: Unremarkable renal ultrasound. No hydronephrosis or sonographically evident calculi. Dictated by Tita Conn MD @ 01/18/2025 1:46:14 PM (Electronically Signed)
--- NOTE | 2025-01-18 12:29 | CRLHL7_ITS ---
For Patients: As a result of the Century Cures Act, medical imaging exams and procedure reports are released immediately into your electronic medical record. You may view this report before your referring provider. If you have questions, please contact your health care provider. Indication: Right groin and right testicle pain. Technique: Ultrasound of the scrotum and contents. Sonographic richardson-scale images were obtained with spectral waveform and color Doppler analysis of the testicles. Comparison: None. Findings: Both testicles are normal in size and echotexture. Right testicle measures 4.3 x 2.3 x 3 cm. Left testicle measures 3.6 x 3.2 x 3.1 cm. No masses. No suspicious calcifications. Arterial and venous color Doppler blood flow and spectral waveforms are present in both testicles. Epididymis: Unremarkable bilaterally. Normal blood flow. Other: No significant hydrocele. No sign of varicocele. Scrotal wall is normal. Impression: Unremarkable ultrasound of the scrotum and contents. No sign of torsion or inflammation. Dictated by Harley Villeda MD @ 01/18/2025 1:49:11 PM (Electronically Signed)
[2025-01-18] MEDS: cefTRIAXone 1 GM in 0.9 % SODIUM CHLORIDE Mini-bag 100 ML IVPB (12:59)
--- NOTE | 2025-01-18 13:04 | ED.NURSE ---
Ultrasound being performed in room.
[2025-01-18 13:32] VITALS: BP 148/82; PULSE 67; RESP 16; O2SAT 94
[2025-01-18 15:30] VITALS: BP 165/90; PULSE 73; RESP 16; O2SAT 94
== END 2025-01-18 15:34 | disposition home or self-care (01) ==
PROVIDERS: Emergency Provider Emergency Medicine; PCP Family Medicine
DX: N39.0 Urinary tract infection, site not specified (principal)
CPT/HCPCS: 36415; 76770; 76870; 80048; 81001; 83605; 85025; 87086; 93976; 96365; 96375; 99284; J0696; J1171; J2405

== ENCOUNTER 2025-02-28 12:11 | Emergency (ER) | payer BC, SELFPAY ==
[2025-02-28 12:29] VITALS: BP 177/97; PULSE 69; RESP 22; TEMP 36.8; O2SAT 93; BMI 68.3
--- NOTE | 2025-02-28 13:28 | ED.SKABFB ---
HPI - Skin/Abscess/Foreign Bdy General Chief complaint: Skin/Abscess/Foreign Body Stated complaint: left leg wound Time Seen by Provider: 02/28/25 12:42 History of Present Illness HPI narrative: This 39-year-old male had a visit by a person from the wound clinic to his home today. He was sent here because of a open wound in the posterior aspect of his left calf region. The patient was hospitalized a couple months ago for a cellulitis and has been recovering for symptoms of his left lower leg due to infection from cellulitis. He has had home care with from the wound clinic and was soon to be discontinuing this plan until today's finding. The patient does not report any injury event and did not know that he had an open wound in the left calf region. He does not have any peripheral neuropathy but does have large edema in both legs, left greater than right. He is not reporting any fevers. He was sent here for further evaluation because of the new finding of this wound. The wound clinic person did stick a Q-tip into the wound and was able to penetrate upwards of 4 5 cm. Some gauze was placed and there is a small amount of drainage on the bandage. Related Data Home Medications ?Medication ?Instructions ?Recorded ?Confirmed aspirin 81 mg chewable tablet 1 tab PO DAILY 12/20/24 01/18/25 metoprolol succinate 50 mg 50 mg PO DAILY 12/20/24 01/18/25 tablet,extended release 24 hr semaglutide (weight loss) 0.5 mg subcut 12/20/24 12/21/24 mg/0.5 mL subcutaneous pen injector (Wegovy) Held on 01/18/25. Instructions: due to infection in leg spironolactone 25 mg tablet 25 mg PO DAILY 12/20/24 01/18/25 bumetanide 1 mg tablet 1 mg PO DAILY 12/21/24 01/18/25 semaglutide (weight loss) 0.25 mg subcut 12/21/24 12/21/24 mg/0.5 mL subcutaneous pen injector (Wegovy) Held on 01/18/25. Instructions: Order Change methocarbamol 500 mg tablet PO 01/18/25 oxycodone 5 mg tablet PO 01/18/25 Previous Rx's ?Medication ?Instructions ?Recorded bumetanide 0.5 mg tablet 0.5 mg PO BID #14 tabs 07/18/24 lisinopril 40 mg tablet 40 mg PO DAILY #7 tabs 07/18/24 potassium chloride 20 mEq 20 meq PO DAILY #7 tabs 07/18/24 tablet,extended release(part/cryst) (Klor-Con M) cefdinir 300 mg capsule 300 mg PO BID 10 days #20 caps 01/18/25 cephalexin 500 mg capsule 500 mg PO TID 10 days #30 caps 02/28/25 Allergies Allergy/AdvReac Type Severity Reaction Status Date / Time concrete Allergy Unknown Uncoded 12/21/24 16:39 Review of Systems Status of ROS: Reports: 10 or more systems reviewed and unremarkable except as noted in History and below Narrative: Constitutional: No fevers, no weight gain or loss. Eyes: No discharge. No vision changes. HENT: No congestion, no sore throat, no ear pain. Cardiovascular: No chest pain, no palpitations. Respiratory: No shortness of breath, no wheezes, no cough. Gastrointestinal: No abdominal pain, no vomiting, no diarrhea. Genitourinary: No dysuria, no hematuria. Musculoskeletal: Normal range of motion. Skin: No rashes, no pruritis. Neurological: No dizziness, weakness, sensory change, speech change. Endo/Heme/Allergies: No bruising or bleeding. No polydipsia. Pysch: no suicidality, no anxiety, no insomnia. All other systems reviewed and are negative. [facility] Social History Smoking Status: Current every day smoker What tobacco products do you use: cigarettes Smoking packs per day: 1 Smoking cigarettes per day: 20.0 How often do you have a drink containing alcohol: never AUDIT-C Alcohol total score: 0 Non-prescribed substance use: denies use Exam Narrative: Exam Narrative: Constitutional: Well-developed, well-nourished, no acute distress. HEENT: Normocephalic, atraumatic. Neck: Normal range of motion. Nontender. Supple. Heart: Regular. No murmurs. Normal rate. Intact distal pulses. Lungs: Clear to auscultation. No chest discomfort. No wheezes, rhonchi, or rales. Abdomen: Normal bowel sounds. Nontender. No rebound tenderness. Genitalia: Deferred. Back: No midline tenderness. Normal range of motion. Extremities: Normal range of motion. Bilateral large edema, left greater than right. Erythema in the left leg with a open wound with mild drainage in the calf region. The patient did not know this was there and does not report any pain except if something is probed into the wound. Skin: Intact. No rash. Warm. No erythema or pallor. Neurologic: No altered sensation. No weakness. Alert and oriented. Psychiatric: No suicidality. No anxiety or depression. No insomnia. Nursing notes and vitals signs are reviewed. Const: Vital Signs, click to edit/add: Vital Signs - 24 hr 02/28/25 12:29 Temperature 98.2 F Pulse Rate [Right Radial] 69 Respiratory Rate 22 Blood Pressure [Ri ght Forearm] 177/97 H Pulse Oximetry 93 Oxygen Delivery Me thod Room Air Course Vital Signs Vital signs: Initial Vital Signs Temperature 98.2 F 02/28/25 12:29 Temperature Source Temporal Artery Scan 02/28/25 12:29 Pulse Rate 69 02/28/25 12:29 Pulse Rhythm Regular 02/28/25 12:29 Respiratory Rate 22 02/28/25 12:29 Blood Pressure 177/97 H 02/28/25 12:29 Blood Pressure Mean 123 H 02/28/25 12:29 Pulse Oximetry 93 02/28/25 12:29 Oxygen Delivery Method Room Air 02/28/25 12:29 Vital Signs Temperature 98.2 F 02/28/25 12:29 Pulse Rate 69 02/28/25 12:29 Respiratory Rate 22 02/28/25 12:29 Blood Pressure 177/97 H 02/28/25 12:29 Pulse Oximetry 93 02/28/25 12:29 Oxygen Delivery Method Room Air 02/28/25 12:29 Temperature 98.2 F 02/28/25 12:29 Pulse Rate 69 02/28/25 12:29 Respiratory Rate 22 02/28/25 12:29 Blood Pressure 177/97 H 02/28/25 12:29 Pulse Oximetry 93 02/28/25 12:29 Oxygen Delivery Method Room Air 02/28/25 12:29 MDM - Skin/Abscess/Foreign Bdy MDM Narrative Medical decision making narrative: This patient has had ongoing care at home regularly from the wound clinic because of chronic cellulitis in his left lower extremity. Today the wound care assessment found an open wound in his calf apparently from an abscess that drained. He was sent here for further evaluation and treatment. The patient does not report any peripheral neuropathy symptoms and states that he does not really have any pain in his left lower leg except if disturbing the area of this wound. It does appear to be an abscess that drained. It is not likely that this wound will heal quickly as he has very large edema with stress on the skin. He does have ongoing wound care at home. I did remove the gauze and obtain a wound culture. The patient has normal vital signs. I did prescribe Keflex and he does have a follow-up appointment with wound clinic in a couple days. The wound was redressed with an Tyler wrap that is circumferential applying some degree of compression. Discharge Plan Discharge Clinical Impression: Abscess of skin or subcutaneous tissue Patient Disposition: Home, Self-Care Condition: Stable Additional Instructions: Take medication as prescribed. Follow-up with wound clinic home visit as scheduled or sooner if needed. Return to emergency department if needed. Prescriptions: New cephalexin 500 mg capsule 500 mg PO TID 10 Days Qty: 30 0RF No Action bumetanide 1 mg tablet 1 mg PO DAILY Wegovy 0.25 mg/0.5 mL pen injector subcut Patient Comments: [NO ORIGINAL SIG] lisinopril 40 mg tablet 40 mg PO DAILY Qty: 7 0RF bumetanide 0.5 mg tablet 0.5 mg PO BID Qty: 14 0RF potassium chloride [Klor-Con M20] 20 mEq tablet,ER particles/crystals 20 meq PO DAILY Qty: 7 0RF spironolactone 25 mg tablet 25 mg PO DAILY Wegovy 0.5 mg/0.5 mL pen injector subcut metoprolol succinate 50 mg tablet extended release 24 hr 50 mg PO DAILY aspirin 81 mg tablet,chewable 1 tab PO DAILY methocarbamol 500 mg tablet PO oxycodone 5 mg tablet PO cefdinir 300 mg capsule 300 mg PO BID 10 Days Qty: 20 0RF Follow Up/Referrals: Mary Fowler DO [Primary Care Provider, Family Practice] [facility] Info Instructions
== END 2025-02-28 13:56 | disposition home or self-care (01) ==
LOC: ED 13:40
PROVIDERS: Emergency Provider Emergency Medicine Emergency Medical Services; PCP Family Medicine
DX: L02.416 Cutaneous abscess of left lower limb (principal); R60.0 Localized edema
CPT/HCPCS: 87070; 87186; 99284

== ENCOUNTER 2025-03-20 09:03 | Outpatient (CLI) | payer BC, SELFPAY | END 2025-03-20 09:04 | disposition home or self-care (01) | PROVIDERS: PCP Family Medicine; Visit Provider Physician Assistant | DX: I89.0 Lymphedema, not elsewhere classified (principal); L03.116 Cellulitis of left lower limb; L97.822 Non-pressure chronic ulcer of other part of left lower leg with fat layer exposed; I10 Essential (primary) hypertension; E66.01 Morbid (severe) obesity due to excess calories | CPT/HCPCS: 97597; G0463 ==

== ENCOUNTER 2025-03-20 13:46 | Outpatient (CLI) | payer BC, SELFPAY ==
--- NOTE | 2025-03-20 13:56 | CRLHL7_ITS ---
For Patients: As a result of the Century Cures Act, medical imaging exams and procedure reports are released immediately into your electronic medical record. You may view this report before your referring provider. If you have questions, please contact your health care provider. EXAM: CT OF THE LEFT TIBIA AND FIBULA, WITH IV CONTRAST CLINICAL INDICATION: Leg wound. COMPARISON PLAIN FILMS: None. COMPARISON CROSS-SECTIONAL IMAGING STUDIES: None. TECHNICAL: Enhanced CT of the left tibia and fibula with axial images. Sagittal oblique and coronal oblique images were created. Contrast: Isovue 370, 150 mL IV. FINDINGS: SOFT TISSUES: There is an area of dressing in the posterior calf region. Deep to the area dressing there are 2 focal areas of punctate subcutaneous emphysema. One focal area measures 1.5 cm in maximum dimension (series 4, image 54). The 2nd focal area measures 2.0 cm in maximal dimension (series 4, image 63). No peripherally enhancing fluid collection is identified adjacent to the areas of subcutaneous emphysema. There is a moderate amount of subcutaneous edema diffusely in the region of the subcutaneous emphysema. In the distal lower extremity there is prominent diffuse circumferential subcutaneous edema. OSSEOUS STRUCTURES: No cortical destruction or periosteal reaction to suggest osteomyelitis. No fractures. TENDONS AND MUSCLES: No intramuscular fluid collection or emphysema. No mass effect. Moderate to prominent atrophy of the medial head of the gastrocnemius musculature. Moderate atrophy of the soleus musculature. No retracted tendon tear. JOINTS: No ankle joint effusion. IMPRESSION: 1. Two focal areas of subcutaneous emphysema in the posterior calf in an area of subcutaneous edema. No encapsulated abscess. No osteomyelitis. 2. Additional diffuse subcutaneous edema. 3. Atrophy of the medial head of gastrocnemius and soleus musculature. Please note that all CT scans at this facility use dose modulation, iterative reconstruction, and/or weight-based dosing when appropriate to reduce radiation dose to as low as reasonably achievable. Dictated by Santo Benz MD @ 03/20/2025 3:36:23 PM (Electronically Signed)
== END 2025-03-20 13:47 | disposition home or self-care (01) ==
PROVIDERS: PCP Family Medicine; Visit Provider Physician Assistant
DX: L02.416 Cutaneous abscess of left lower limb (principal); T81.89XA Other complications of procedures, not elsewhere classified, initial encounter
CPT/HCPCS: 73701; Q9967

== ENCOUNTER 2025-03-20 18:46 | Emergency (ER) | payer BC, SELFPAY ==
[2025-03-20 18:52] VITALS: BP 178/104; PULSE 73; RESP 20; TEMP 36.9; O2SAT 98; BMI 70.3
--- NOTE | 2025-03-20 19:47 | ED.GENADULT ---
HPI - General Adult General Chief complaint: Extremity Pain/Injury, Lower Stated complaint: sent from wound care Time Seen by Provider: 03/20/25 19:26 Source: patient Mode of arrival: ambulatory Limitations: no limitations History of Present Illness HPI narrative: 39-year-old male with a history of a chronic left lower extremity wound presenting today at the request of the [facility]. Patient states he had an appointment today, had some debridement and was sent for a CT scan of the lower extremity. States that he received a call that he should report to the emergency department for further management. Patient does not feel ill. No fevers or chills. No nausea or vomiting. No increased pain of the lower extremity. He was on cephalexin, was switched to Levaquin today. Related Data Home Medications ?Medication ?Instructions ?Recorded ?Confirmed aspirin 81 mg chewable tablet 1 tab PO DAILY 12/20/24 01/18/25 metoprolol succinate 50 mg 50 mg PO DAILY 12/20/24 01/18/25 tablet,extended release 24 hr semaglutide (weight loss) 0.5 mg subcut 12/20/24 12/21/24 mg/0.5 mL subcutaneous pen injector (Wegovy) Held on 01/18/25. Instructions: due to infection in leg spironolactone 25 mg tablet 25 mg PO DAILY 12/20/24 01/18/25 bumetanide 1 mg tablet 1 mg PO DAILY 12/21/24 01/18/25 semaglutide (weight loss) 0.25 mg subcut 12/21/24 12/21/24 mg/0.5 mL subcutaneous pen injector (Wegovy) Held on 01/18/25. Instructions: Order Change methocarbamol 500 mg tablet PO 01/18/25 oxycodone 5 mg tablet PO 01/18/25 Previous Rx's ?Medication ?Instructions ?Recorded bumetanide 0.5 mg tablet 0.5 mg PO BID #14 tabs 07/18/24 lisinopril 40 mg tablet 40 mg PO DAILY #7 tabs 07/18/24 potassium chloride 20 mEq 20 meq PO DAILY #7 tabs 07/18/24 tablet,extended release(part/cryst) (Klor-Con M) cefdinir 300 mg capsule 300 mg PO BID 10 days #20 caps 01/18/25 cephalexin 500 mg capsule 500 mg PO TID 10 days #30 caps 02/28/25 Allergies Allergy/AdvReac Type Severity Reaction Status Date / Time concrete Allergy Unknown Uncoded 12/21/24 16:39 Review of Systems Status of ROS: Reports: 10 or more systems reviewed and unremarkable except as noted in History and below [facility] Social History Smoking Status: Current every day smoker What tobacco products do you use: cigarettes Smoking packs per day: 1 Smoking cigarettes per day: 20.0 How often do you have a drink containing alcohol: never AUDIT-C Alcohol total score: 0 Non-prescribed substance use: denies use Exam Narrative: Exam Narrative: Morbidly obese patient in no acute distress. Alert and oriented. Answers questions appropriately. Mood and affect are appropriate. Thoughts are goal oriented and rational. No tangential or magical thinking noted. Patient speaks in full sentences without needing to catch his breath. Left lower extremity has significant chronic lymphedema. The back of his calf has 2 open wounds with necrotic tissue present. Area is quite tender. Const: Vital Signs, click to edit/add: Vital Signs - 24 hr 03/20/25 18:52 Temperature 98.4 F Pulse Rate [Pulse Oximeter] 73 Respiratory Rate 20 Blood Pressure [Ri ght Forearm] 178/104 H Pulse Oximetry 98 Oxygen Delivery Me thod Room Air Course Course ED Course: Did review patient's CT scan which shows subcutaneous emphysema. Did consult with Dr. Lowe and was able to view the CT scan and examined the patient. 0utpatient surgical debridement recommended. Vital Signs Vital signs: Initial Vital Signs Temperature 98.4 F 03/20/25 18:52 Temperature Source Temporal Artery Scan 03/20/25 18:52 Pulse Rate 73 03/20/25 18:52 Pulse Rhythm Regular 03/20/25 18:52 Respiratory Rate 20 03/20/25 18:52 Blood Pressure 178/104 H 03/20/25 18:52 Blood Pressure Mean 128 H 03/20/25 18:52 Blood Pressure Position Sitting 03/20/25 18:52 Pulse Oximetry 98 03/20/25 18:52 Oxygen Delivery Method Room Air 03/20/25 18:52 Vital Signs Temperature 98.4 F 03/20/25 18:52 Pulse Rate 73 03/20/25 18:52 Respiratory Rate 20 03/20/25 18:52 Blood Pressure 178/104 H 03/20/25 18:52 Pulse Oximetry 98 03/20/25 18:52 Oxygen Delivery Method Room Air 03/20/25 18:52 Temperature 98.4 F 03/20/25 18:52 Pulse Rate 73 03/20/25 18:52 Respiratory Rate 20 03/20/25 18:52 Blood Pressure 178/104 H 03/20/25 18:52 Pulse Oximetry 98 03/20/25 18:52 Oxygen Delivery Method Room Air 03/20/25 18:52 Medical Decision Making MDM Narrative Medical decision making narrative: 39-year-old male with nonhealing wounds. Plan per above Lab Data Labs: Lab Results 03/20/25 Range/Units 19:55 WBC 7.07 (4.50-11.00) K/uL RBC 4.61 (4.30-5.90) m/uL Hgb 13.9 (13.5-17.5) gm/dL Hct 42.6 (37.0-53.0) % MCV 92 (80-100) fL MCH 30 (26-34) pg MCHC 33 (32-36) gm/dL RDW Coeff of Octavia 13.3 (11.5-15.5) % Plt Count 247 (140-440) K/uL Neut % (Auto) 60.0 (42.0-72.0) % Lymph % (Auto) 28.4 (20-44) % [place] % (Auto) 6.5 (0.0-11.0) % Eos % (Auto) 4.4 (0.0-7.0) % Baso % (Auto) 0.6 (0.0-3.0) % Neut # (Auto) 4.24 (1.7-7.0) K/uL Lymph # (Auto) 2.01 (0.90-2.90) K/uL [place] # (Auto) 0.50 (0.00-0.90) K/UL Eos # (Auto) 0.31 (0.00-0.50) K/uL Baso # (Auto) 0.04 (0.00-0.30) K/uL Abs Immat Gran (auto) 0.01 (0.00-0.30) K/uL Imm/Tot Granulo (auto) 0.1 % Sodium 140 (135-149) mmol/L Potassium 4.0 (3.6-5.1) mmol/L Chloride 100 (96-114) mmol/L Carbon Dioxide 29 (20-32) mmol/L Anion Gap 11 (7-15) mEq/L BUN 18 (5-24) mg/dL Creatinine 1.4 (0.5-1.5) mg/dL Estimated Creat Clear 72.42 Estimated GFR 65 ml/min Glucose 107 (60-115) mg/dL Calcium 8.8 (8.4-10.6) mg/dL C-Reactive Protein 0.9 (0.5-1.0) mg/dL Discharge Plan Discharge Clinical Impression: Nonhealing nonsurgical wound Patient Disposition: Home, Self-Care Condition: Stable Additional Instructions: Follow-up per surgeon recommendation. No food after midnight. Prescriptions: No Action bumetanide 1 mg tablet 1 mg PO DAILY Wegovy 0.25 mg/0.5 mL pen injector subcut Patient Comments: [NO ORIGINAL SIG] lisinopril 40 mg tablet 40 mg PO DAILY Qty: 7 0RF bumetanide 0.5 mg tablet 0.5 mg PO BID Qty: 14 0RF potassium chloride [Klor-Con M20] 20 mEq tablet,ER particles/crystals 20 meq PO DAILY Qty: 7 0RF spironolactone 25 mg tablet 25 mg PO DAILY Wegovy 0.5 mg/0.5 mL pen injector subcut metoprolol succinate 50 mg tablet extended release 24 hr 50 mg PO DAILY aspirin 81 mg tablet,chewable 1 tab PO DAILY methocarbamol 500 mg tablet PO oxycodone 5 mg tablet PO cefdinir 300 mg capsule 300 mg PO BID 10 Days Qty: 20 0RF cephalexin 500 mg capsule 500 mg PO TID 10 Days Qty: 30 0RF Follow Up/Referrals: Mary Fowler DO [Primary Care Provider, Family Practice] [facility]: [facility] Instructions
--- OUTSIDE RECORDS SUMMARY | 2025-03-20 20:04 | XMS_ITS | Clinical Summary ---
Author Organization [facility] Address [address] [place] [id number] Care Team Providers Care Lining Inserter Name Role Phone Mary Fowler DO Primary Care Provider [phone] [email or web address] Unavailable [phone] Allergies Active Allergy Reactions Criticality Noted Date Comments Unlisted Allergen (Include Detail In Comments) Rash Unknown 04/23/2018 [place] - Rash on Upper Extremity Medications * [...] As directed. 1 Each 12/07/19 24 Active aspirin chewable 81 mg chewable tabletIndications: Mixed hyperlipidemia Chew 1 Tablet (81 mg) by mouth once daily with a meal. 100 Tablet 3 07/28/19 25 Active metoprolol succinate 50 mg sustained-release tabletIndications: Hypertension Take 1 Tablet (50 mg) by mouth once daily. 90 Tablet 1 07/28/19 25 Active WalkerIndications: Cellulitis of left lower extremity Bariatric walker with front wheels for home use. 1 Each 01/06/20 25 Active methocarbamoL 500 mg tabletIndications: Cellulitis of left lower extremity Take 1 Tablet (500 mg) by mouth every 6 hours if needed for Muscle Spasm -Oral route 1st choice. 30 Tablet 01/06/20 25 Active bumetanide (BUMEX) 1 mg tabletIndications: Hypertension,Pulmo nary hypertension (HC) Take 2 Tablets (2 mg) by mouth two times daily. 120 Tablet 2 01/19/20 25 Active semaglutide (weight loss) (Wegovy) 0.5 mg/0.5 mL subcutaneous penIndications:Mor bid obesity (HC) Inject 0.5 mg subcutaneous once weekly for 28 days. 2 mL 02/21/20 25 025 Active semaglutide (weight loss) (Wegovy) 1 mg/0.5 mL subcutaneous penIndications:Mor bid obesity (HC) Inject 1 mg subcutaneous once weekly for 28 days. 2 mL 03/20/20 25 026 Active naproxen (ALEVE) 220 mg tabletIndications: Pain of left lower extremity Take 2 Tablets (440 mg) by mouth every 12 hours if needed for Pain. 02/03/20 25 Active acetaminophen (TYLENOL EXTRA STRGTH) 500 mg tabletIndications: pain Take 2 Tablets (1,000 mg) by mouth every 6 hours if needed for Pain. Maximum of 4000 mg in 24 hours. 100 Tablet 2 02/03/20 25 Active buPROPion (WELLBUTRIN XL) 150 mg Extended-Release tabletIndications: Severe depression (HC) Take 1 Tablet (150 mg) by mouth once daily in the morning. 90 Tablet 02/03/20 25 Active lisinopriL (PRINIVIL; ZESTRIL) 40 mg tabletIndications: Hypertension Take 1 Tablet (40 mg) by mouth once daily. 90 Tablet 1 02/16/20 25 Active spironolactone 25 mg tabletIndications: Hypertension Take 1 Tablet (25 mg) by mouth once daily in the morning. 90 Tablet 1 02/16/20 25 Active cephalexin 500 mg capsule Take 500 mg by mouth three times daily. 03/13/20 25 025 Active semaglutide (Wegovy) 0.25 mg/0.5 mL subcutaneous penIndications:Mor bid obesity (HC) Inject 0.25 mg subcutaneous once weekly for 28 days. 2 mL 01/24/20 25 025 Active Problems Patient Care Coordination No te Formatting of this note migh t be different from the original. Bariatric Manual provided Problem Noted Date Diagnosed Date Cellulitis due to methicilli n-resistant Staphylococcus aureus (MRSA) 12/31/2024 Cellulitis of left lower extremity 12/23/2024 Left ventricular hypertrophy 08/03/2024 Overview (08/03/2024): Seen on Echo Hypoventilation associated with obesity syndrome 03/11/2023 Overview (03/11/2023): THANG, requires bipap Pulmonary hypertension 03/11/2023 Chronic heart failure with preserved ejection fr action 08/23/2020 THANG (obstructive sleep apnea) 10/16/2014 Hypertension Morbid obesity Overview (03/11/2023): 03/11/2023 Body mass index is 67.7 kg/m . Tobacco use disorder Resolved Problems Problem Noted Date Diagnosed Date Resolved Date Hypertriglyceridemia 11/02/2024 025 Prediabetes 11/02/2024 12/23/2024 Morbid obesity 07/27/2024 12/23/2024 Overview (07/27/2024): AI Summary: As of 12/07/23: [...] kg Recent encounter dx: 12/07/23: Appointment - [facility] 03/23/23: Hospital Encounter - [facility] Med Surg, Med Surg (from [facility]) 10/12/20: Appointment - [facility] 09/13/20: Appointment - [facility] 08/31/20: Appointment - [facility] Recent studies: 09/25/20: CT ABDOMEN PELVIS [...] Discharge Summary by Mis Arroyo MD (from [facility]) ... [-] Obesity Hypoventilation syndrome ... [+] # Severe Obesity: Estimated body mass index is 64.45 kg/m as calculated from the following: ... [+] Associated Diagnoses: Morbid obesity (H) 03/25/23: Progress Notes by Mis Arroyo MD (from [facility]) ... [+] # Severe Obesity: Estimated body mass index is 63.8 kg/m as calculated from the followin03/24/23: Consult Notes - Consults by Diya Blanton MD (from [facility]) ... [-] Morbid obesity 03/24/23: Progress Notes by Mis Arroyo MD (from [facility]) ... [+] # Severe Obesity: Estimated body mass index is 66.98 kg/m as calculated from the following: Gout of right ankle 12/07/2023 12/24/19 25 Hypertensive emergency 08/22/202012/23 Osteochondritis dissecans of ankle, right 05/05/2018 12/23/2024 Chest pain 04/17/2018 12/07/2023 Cellulitis of lower extremity 04/12/2018 12/23/2024 Allergic contact dermatitis 04/07/2018 04/07/2018 Allergic contact dermatitis 03/25/2018 12/23/2024 Cor pulmonale, acute 10/11/2014 024 Cor pulmonale 10/11/2014 12/07/2023 Edema 10/10/2014 12/23/2024 Hypoxia,possible PE 10/10/2014 04/12/20 18 Snoring 12/23/2024 Encounters Date Type Department Care Team Description 03/17/2025 11:00 AM PERIPHERAL VASCULAR TECH Home Care Visit [facility] [address] [place] [address] Yoselin Bosch, PATRICK SN - WOUND HOME VISIT 03/15/2025 Home Care Visit [facility] [address] [place] [address], [place] [address] Yoselin Bosch, PATRICK CARE COORDINATION 03/14/2025 11:15 AM PERIPHERAL VASCULAR TECH Home Care Visit [facility] [address] [place] [address], [place] [address] Baltazar Mcgee, RN SN - WOUND/OSTOMY CHART CONSULT 03/14/2025 9:00 AM PERIPHERAL VASCULAR TECH Home Care Visit [facility] [address] [place] [address], [place] [address] Abigail Degroot, LINUX SECURITY ADMINISTRATOR LINUX SECURITY ADMINISTRATOR - HOME VISIT 03/10/2025 7:45 AM PERIPHERAL VASCULAR TECH Home Care Visit [facility] [address] [place] [address], [place] [address] Baltazar Mcgee, RN SN - WOUND/OSTOMY CHART CONSULT 03/10/2025 Home Care Visit [facility] [address] [place] [address], [place] [address] Nubia Perez RN CARE COORDINATION 03/06/2025 1:30 PM PERIPHERAL VASCULAR TECH Home Care Visit [facility] [address] [place] [address], [place] [address] Yoselin Bosch, PATRICK SN - WOUND HOME VISIT 03/03/2025 8:30 AM PERIPHERAL VASCULAR TECH Home Care Visit [facility] [address] [place] [address], [place] [address] Baltazar Mcgee, RN SN - WOUND/OSTOMY CHART CONSULT 03/02/2025 1:30 PM PERIPHERAL VASCULAR TECH Home Care Visit [facility] [address] [place] [address] Yoselin Bosch, PATRICK SN - OASIS RECERTIFICATION 03/02/2025 Plan of Care Documentation [facility] [address] [place] [address], [place] [address] 03/02/2025 Telephone [facility] [address] [place] [address], [place] [address] Yoselin Bosch, systems applications programming lead 02/28/2025 10:00 AM PERIPHERAL VASCULAR TECH Home Care Visit [facility] [address] [place] [address], [place] [address] Yoselin Bosch, PATRICK SN - HOME VISIT 02/28/2025 Home Care Visit [facility] [address] [place] [address], [place] [address] Yoselin Bosch, CLIENT EXECUTIVE NOTE 02/28/2025 Home Care Visit [facility] [address] [place] [address], [place] [address] Baltazar Mcgee, PATRICK SN - WOUND/OSTOMY CHART CONSULT 02/24/2025 5:15 AM PERIPHERAL VASCULAR TECH Home Care Visit [facility] [address] [place] [address], [place] [address] Baltazar Mcgee, RN SN - WOUND/OSTOMY CHART CONSULT 02/21/2025 10:00 AM PERIPHERAL VASCULAR TECH Home Care Visit [facility] [address] [place] [address], [place] [address] Abigail Degroot LPN LINUX SECURITY ADMINISTRATOR - HOME VISIT 02/14/2025 10:00 AM PERIPHERAL VASCULAR TECH Home Care Visit [facility] [address] [place] [address], [place] [address] Angeles Lorenz RN SN - HOME VISIT 02/14/2025 Telephone [facility] [address] [place] [address], [place] [address] Angeles Lorenz systems applications programming lead (Medication refills) 02/09/2025 12:30 PM CDT Home Care Visit [facility] [address] [place] [address] Yoselin Bosch RN SN - HOME VISIT 02/09/2025 Telephone [facility] [address] [place] [address] Yoselin Bosch RN Home Care 02/06/2025 12:00 PM CDT Home Care Visit [facility] [address] [place] [address], [place] [address] Abigail Degroot LPN LINUX SECURITY ADMINISTRATOR - HOME VISIT 02/03/2025 9:00 AM CDT Home Care Visit [facility] [address] [place] [address], [place] [address] Abigail Degroot LPN LINUX SECURITY ADMINISTRATOR - HOME VISIT 02/03/2025 7:00 AM CDT Home Care Visit [facility] [address] [place] [address], [place] [address] Baltazar Mcgee RN SN - WOUND/OSTOMY CHART CONSULT 02/02/2025 12:45 PM CDT Office Visit [facility] [address] [place] [address] Mary Fowler, Follow Up (pain medication) 02/02/2025 Travel 01/30/2025 1:00 PM CDT Home Care Visit [facility] [address] [place] [address], [place] [address] Yoselin Bosch RN SN - HOME VISIT 01/30/2025 10:00 AM CDT Office Visit [facility] [address] [place] [address] Mayela Badillo, [facility] Visit 01/30/2025 Travel 01/27/2025 12:00 PM CDT Home Care Visit [facility] [address] [place] [address], [place] [address] Angeles Lorenz RN SN - HOME VISIT 01/27/2025 7:15 AM CDT Home Care Visit [facility] [address] [place] [address] Baltazar Mcgee, RN SN - WOUND/OSTOMY CHART CONSULT 01/26/2025 12:45 PM CDT Home Care Visit [facility] [address] [place] [address], [place] [address] Kimberly Huertas, PT PT - DISCIPLINE DISCHARGE 01/26/2025 10:00 AM CDT Home Care Visit [facility] [address] [place] [address], [place] [address] Dianna Choi, COAT FINISHER COAT FINISHER - INITIAL ASSESSMENT 01/26/2025 Home Care Visit [facility] [address] [place] [address], [place] [address] Abigail Degroot, LINUX SECURITY ADMINISTRATOR CARE COORDINATION 01/25/2025 10:00 AM CDT Home Care Visit [facility] [address] [place] [address], [place] [address] Abigail Degroot LPN LINUX SECURITY ADMINISTRATOR - HOME VISIT 01/25/2025 Orders Only [facility] [address] [place] [address] Mary Fowler, <No scans attached> 01/24/2025 3:15 PM CDT Home Care Visit [facility] [address] [place] [address], [place] [phone] Mario Campoverde, OT OT - DISCIPLINE DISCHARGE 01/24/2025 Travel 01/23/2025 11:30 AM CDT Home Care Visit [facility] [address] [place] [address], [place] [phone] Yoselin Bosch, PATRICK SN - HOME VISIT 01/23/2025 Telephone [facility] [address] [place] [phone] Yoselin Bosch, systems applications programming lead 01/20/2025 1:30 PM CDT Home Care Visit [facility] [address] [place] [phone] Trudi Wyatt COTA OT - HOME VISIT 01/20/2025 Telephone [facility] [address] [place] [address] Yoselin Bosch, systems applications programming lead 01/20/2025 Home Care Visit [facility] [address] [place] [address] Mario Campoverde, OT CARE COORDINATION 01/19/2025 3:00 PM CDT Home Care Visit [facility] [address] [place] [address] Yoselin Bosch, PATRICK SN - HOME VISIT 01/19/2025 11:30 AM CDT Home Care Visit [facility] [address] [place] [address] Kimberly Huertas, PT PT - HOME VISIT 01/17/2025 9:00 AM CDT Home Care Visit [facility] [address] [place] [address] Yoselin Bosch, PATRICK SN - HOME VISIT 01/17/2025 Travel 01/17/2025 Telephone [facility] [address] [place] [phone] Yoselin Bosch, systems applications programming lead 01/16/2025 3:49 PM CDT - 01/16/2025 6:46 PM CDT Emergency [address] [address] Safia Antoine MD Pain in left lower leg (Primary Dx); Chronic wound Discharge Disposition: Home Self Care 01/16/2025 11:00 AM CDT Home Care Visit [facility] [address] [place] [address] Abigail Degroot LPN LINUX SECURITY ADMINISTRATOR - HOME VISIT 01/16/2025 Home Care Visit [facility] [address] [place] [phone] Yoselin Bosch, CLIENT EXECUTIVE NOTE 01/16/2025 Travel 01/16/2025 Refill [facility] [address] [place] [address] Mary Fowler, Refill Request (Lisinopril 40mg tabs, Bumetanide 1mg tabs) 01/13/2025 3:30 PM CDT Home Care Visit [facility] [address] [place] [phone] Nubia Perez, RN SN - LONG VISIT (>90 MINUTES) 01/12/2025 10:45 AM CDT Home Care Visit [facility] [address] [place] [address] Kimberly Huertas, PT PT - HOME VISIT 01/11/2025 2:15 PM CDT Home Care Visit [facility] [address] [place] [phone] Mario Campoverde, OT OT - INITIAL ASSESSMENT 01/11/2025 10:00 AM CDT Home Care Visit [facility] [address] [place] [phone] Yoselin Bosch RN SN - HOME VISIT 01/10/2025 Home Care Visit [facility] [address] [place] [phone] Kimberly Huertas, PT CARE COORDINATION 01/09/2025 2:50 PM CDT Office Visit [facility] [address] [place] [address] Mary Fowler, DO Follow Up (patient is here for ER follow up for celitis on left leg. ) 01/09/2025 11:45 AM CDT Home Care Visit [facility] [address] [place] [phone] Kimberly Huertas, PT PT - INITIAL ASSESSMENT 01/09/2025 12:05 AM CDT Home Care Visit [facility] [address] [place] [phone] Baltazar Mcgee, RN SN - WOUND/OSTOMY CHART CONSULT 01/09/2025 Travel 01/09/2025 Telephone [facility] [address] [place] [address] Kimberly Huertas, IMANI Home Care (NOT taking medications regularily) 01/09/2025 Home Care Visit [facility] [address] [place] [address] Angi Tucker, RN CARE COORDINATION 01/06/2025 10:00 AM CDT Home Care Visit [facility] [address] [place] [phone] Angi Tucker, RN SN - OASIS START OF CARE 01/06/2025 Home Care Visit [facility] [address] [place] [phone] Angi Tucker, PATRICK CARE COORDINATION 01/06/2025 Home Care Visit [facility] [address] [place] [phone] Angi Tucker, RN CARE COORDINATION 01/06/2025 Telephone [facility] [address] [place] [phone] Angi Tucker, systems applications programming lead (HOME CARE ORDERS) 01/06/2025 Plan of Care Documentation [facility] [address] [place] [phone] 01/06/2025 Patient Outreach [facility] [address] [place] [address] Milly Das, RN Primary RN Care Management; Hospital F/U (Lace=63) 01/05/2025 Travel 12/23/2024 4:55 AM CDT - 01/05/2025 3:04 PM CDT Hospital Encounter [facility] [address] [place] [address] Doctors(d), [facility] Ama Cabrera, Yayo Otto, [facility], Fabian Miller, Cellulitis of left lower extremity (Primary Dx); Other problems related to housing and economic circumstances; Other problems related to social environment; Transportation insecurity; Hypertension; Pulmonary hypertension (HC) Discharge Disposition: Home Health 12/22/2024 3:13 PM CDT - 12/23/2024 3:[address] [facility] [address] [place] [address] Inocencio Frost MD Kumar, Siddhant, MD EDIN (acute kidney injury) (Primary Dx); Cellulitis of left leg Discharge Disposition: Short Term/PPS Hosp 12/22/2024 Travel 12/19/2024 Nurse Triage [facility] [address] [place] [address] Milly Das RN Leg Swelling from Last 3 Months Immunizations Immunization Administration [...] Date Smoking Tobacco: Every Day Cigarettes 1 20.9 Started: 2004 Smokeless Tobacco: Never Tobacco Cessation:Ready to Q uit: Not Asked; Counseling Given: Not Answered Comments:TIP visit done 08/28/20, 10/12/14 Alcohol Use Standard Drinks/Week Comments Not Currently 0 (1 standard drink = 0.6 oz pur e alcohol) sober 2 years PHQ-2 Answer Date Recorded PHQ-2 TOTAL SCORE 4 02/02/2025 Social Connections Answer Date Recorded Do you often feel lonely or isolated from those around you? 4 12/23/2024 Alcohol Use Answer Date Recorded How often do you have a drink containing alcohol ? 0 02/02/2025 How many drinks containing a lcohol do you have on a typical day when you are drinking? 0 02/02/2025 How often do you have five or more drinks on one occasion? 0 02/02/2025 Financial Resource Strain Answer Date R ecorded Difficulty of Paying Living Expenses 2 12/23/2024 Difficulty of Paying Living Expenses 1 12/23/2024 Food Insecurity Answer Date Recorded Do you worry your food will run out before you are able to buy more? 1 12/23/2024 Transportation Needs Answer Date Record ed Does lack of transportation keep you from medica l appointments? 2 12/23/2024 Does lack of transportation keep you from work, meetings or getting things that you need? 1 12/23/2024 Housing Stability Answer Date Recorded What is your housing situation today? 1 12/23/2024 Interpersonal Safety Answer Date Record ed Are you being hit, kicked, p ushed or yelled at (see row info)? No 01/16/2025 Interpersonal Safety Abuse 12 - 18 Not on file 01/16/2025 Interpersonal Safety Ambulatory Vulnerability No t on file 01/16/2025 Utilities Answer Date Recorded Do you have trouble paying f or utilities (for example, heat, electricity, water, phone)? 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 Not on file Not on file Not on file Last Filed Vital Signs Vital Sign Reading Time Taken Comments Blood Pressure 158/72 03/17/2025 11:16 AM PERIPHERAL VASCULAR TECH Pulse 88 03/17/2025 11:16 AM PERIPHERAL VASCULAR TECH Temperature 36.4 C (97.5 F) 03/17/2025 11:16 AM PERIPHERAL VASCULAR TECH Respiratory Rate 20 03/17/2025 11:1 6 AM PERIPHERAL VASCULAR TECH Oxygen Saturation 95% 03/17/2025 11: 16 AM PERIPHERAL VASCULAR TECH Inhaled Oxygen Concentration - - Weight 226.8 kg (500 lb) 03/02/2025 1:4 6 PM PERIPHERAL VASCULAR TECH patient reported Height 177.8 cm (5' 10) 01/16/2025 3:5 7 PM CDT Body Mass Index 71.74 01/16/2025 3:57 PM CDT Plan of Treatment Upcoming Encounters Date Type Department Care Team (Late st Contact Info) Description 03/21/2025 10:00 AM PERIPHERAL VASCULAR TECH Appointment [facility] [address] [place] [address] Abigail Degroot LPN 03/24/2025 4:30 AM PERIPHERAL VASCULAR TECH Appointment [facility] [address] [place] [address], [place] [address] Baltazar Mcgee, RN [address] [place] [address] 03/24/2025 5:00 AM PERIPHERAL VASCULAR TECH Appointment [facility] [address] [place] [phone] Yoselin Bosch, PATRICK 03/28/2025 4:00 AM PERIPHERAL VASCULAR TECH Appointment [facility] [address] [place] [phone] Yoselin Bosch, PATRICK 03/31/2025 4:00 AM PERIPHERAL VASCULAR TECH Appointment [facility] [address] [place] [phone] Yoselin Bosch, PATRICK 04/04/2025 4:00 AM PERIPHERAL VASCULAR TECH Appointment [facility] [address] [place] [address], [place] [address] Yoselin Bosch, PATRICK 04/07/2025 4:00 AM PERIPHERAL VASCULAR TECH Appointment [facility] [address] [place] [address], [place] [address] Yoselin Bosch, RN 04/11/2025 4:00 AM PERIPHERAL VASCULAR TECH Appointment [facility] [address] [place] [phone] Yoselin Bosch, RN 04/14/2025 4:00 AM PERIPHERAL VASCULAR TECH Appointment [facility] [address] [place] [address], [place] [address] Yoselin Bosch, RN 04/18/2025 4:00 AM PERIPHERAL VASCULAR TECH Appointment [facility] [address] [place] [address], [place] [address] Yoselin Bosch, RN 04/21/2025 4:00 AM PERIPHERAL VASCULAR TECH Appointment [facility] [address] [place] [phone] Yoselin Bosch, RN 04/25/2025 4:00 AM PERIPHERAL VASCULAR TECH Appointment [facility] [address] [place] [address] Yoselin Bosch, PATRICK 04/28/2025 4:00 AM PERIPHERAL VASCULAR TECH Appointment [facility] [address] [place] [address] Yoselin Bosch, PATRICK 05/02/2025 4:00 AM PERIPHERAL VASCULAR TECH Appointment [facility] [address] [place] [address] Yoselin Bosch, RN Health Maintenance Due Date Last Done Comments HIV for age 15-65 10/30/1999 Hepatitis C screening for ag e 18-79 2002 Hepatitis B series for 19+ ( 1 of 3 - 19+ 3-dose series) 10/30/2003 Pneumococcal series for age 6-49 (1 of 2 - PCV) 10/30/2003 HPV series for age 9-45 (1 - 3-dose SCDM series) 10/30/2011 COVID-19 vaccine series ( - season) 2024 Influenza Vaccine (#1) 2024 BMI (ht and wt on same day) for age 18+ 08/15/2025 08/15/2024, 07/18/2024, 09/13/2020, Additional history exists Depression screening for age 12+ 02/02/2026 02/02/2025, 07/27/2024, 01/29/2024, Additional history exists Tetanus booster 09/19/2026 09/19/2016 Lipids for age 35-44 12/06/2028 12/07/2023, 09/23/2019, 03/21/2016 Procedures Procedure Name Priority Date/Time Associated Diagnosis Comments CREATININE Routine 02/02/2025 1:49 PM CDT Elevated serum creatinine US VENOUS LOWER EXTREMITY LEFT STAT 01/16/2025 5:56 PM CDT C-REACTIVE PROTEIN STAT 01/16/2025 4: 29 PM CDT PROCALCITONIN STAT 01/16/2025 4:29 PM CDT BASIC METABOLIC PANEL STAT 01/16/2025 4:29 PM CDT CBC W PLT NO DIFF STAT 01/16/2025 4:2 9 PM CDT BASIC METABOLIC PANEL Routine 01/09/2025 4:22 PM CDT Hypertension CREATININE Early AM 01/05/2025 5:30 AM CDT POTASSIUM Early AM 01/05/2025 5:30 AM CDT SODIUM Early AM 01/05/2025 5:30 AM CDT CREATININE Early AM 01/04/2025 5:39 AM CDT POTASSIUM Early AM 01/04/2025 5:39 AM CDT SODIUM Early AM 01/04/2025 5:39 AM CDT PLATELET COUNT Timed 01/02/2025 5:49 AM CDT VANCOMYCIN PEAK Timed 12/27/2024 11:32 AM CDT VANCOMYCIN TROUGH JS 12/27/2024 8:4 2 AM CDT WHITE BLOOD COUNT Early AM 12/27/2024 5:3 3 AM CDT C-REACTIVE PROTEIN Early AM 12/27/2024 5: 32 AM CDT WHITE BLOOD COUNT Early AM 12/26/2024 5:5 5 AM CDT PROCALCITONIN Early AM 12/26/2024 5:55 AM CDT C-REACTIVE PROTEIN Early AM 12/26/2024 5: 55 AM CDT RENAL FUNCTION PANEL Early AM 12/26/2024 5:55 AM CDT VANCOMYCIN TROUGH Timed 12/25/2024 8:1 0 AM CDT C-REACTIVE PROTEIN Early AM 12/25/2024 8: 10 AM CDT WHITE BLOOD COUNT Early AM 12/25/2024 8:1 0 AM CDT RENAL FUNCTION PANEL Early AM 12/25/2024 8:10 AM CDT RENAL FUNCTION PANEL Early AM 12/24/2024 5:49 AM CDT C-REACTIVE PROTEIN Timed 12/24/2024 5: 49 AM CDT US RENAL AND BLADDER COMPLETE Routine 12/23/2024 4:58 PM CDT BLOOD CULTURE Today 12/23/2024 1:35 PM CDT BLOOD CULTURE Today 12/23/2024 1:34 PM CDT CBC W PLT NO DIFF Early AM 12/23/2024 9:4 2 AM CDT BASIC METABOLIC PANEL Early AM 12/23/2024 9:42 AM CDT FRACT EXCR OF SODIUM, SERUM STAT 12/22/2024 10:38 PM CDT URINALYSIS MICROSCOPIC STAT 10:33 PM CDT FRACT EXCR OF SODIUM, URINE STAT 12/22/2024 10:33 PM CDT FRACT EXCR OF SODIUM STAT 12/22/2024 10:33 PM CDT UA W/ SEDIMENT EXAM REFLEXED PER CRITERIA STAT 12/22/2024 10:33 PM CDT US VENOUS LOWER EXTREMITY LEFT STAT 12/22/2024 4:17 PM CDT RED CELL MORPHOLOGY STAT 12/22/2024 3 :47 PM CDT PLATELET ESTIMATE STAT 12/22/2024 3:4 7 PM CDT MANUAL DIFFERENTIAL STAT 12/22/2024 3 :47 PM CDT CBC WITH AUTO DIFFERENTIAL STAT 12/22/2024 3:47 PM CDT C-REACTIVE PROTEIN STAT 12/22/2024 3: 47 PM CDT PROCALCITONIN STAT 12/22/2024 3:47 PM CDT COMP METABOLIC PANEL STAT 12/22/2024 3:47 PM CDT CBC WITH AUTO DIFFERENTIAL STAT 12/22/2024 3:47 PM CDT LACTATE VENOUS STAT 12/22/2024 3:47 PM CDT EKG 12 LEAD STAT 12/22/2024 3:43 PM CDT LIPID PANEL W REFLEX MEASURED LDL Routine 12/07/2023 3:21 PM CDT Morbid obesity (HC) from Last 3 Months or Most Recently Relevant to Health Maintenance Results * CREATININE (02/02/2025 1:49 PM CDT) Only the most recent of3 resultswithin the time period is included. CREATININE 1.25 0.60 - 1.29 mg/dL 02/03/2025 3:32 AM CDT [facility] EGFR 75 > OR = 60 mL/min/1.73 m2 02/03/2025 3:32 AM CDT [facility] Blood BLOOD SPECIMEN / Unknown [facility] / Unknown 02/02/2025 1:49 PM CDT 02/02/2025 1:49 PM CDT us Mary Fowler DO CHEMISTRY Final Resu lt [facility] [address] [place] [address], * US VENOUS LOWER EXTREMITY LEFT (01/16/2025 5:56 PM CDT) Only the most recent of2 resultswithin the time period is included. Anatomical Region Laterality Modality LEGS, LEG L, Abdomen Ultrasound 01/16/2025 6:13 PM CDT Narrative 01/16/2025 6:13 PM CDT For Patients: As a result of the Cures Act, medical imaging exams and procedure reports are released immediately into your electronic medical record. You may view this report before your referring provider. If you have questions, please contact your health care provider. Indication: Swelling Technique: Real-time longitudinal and transverse sonographic richardson-scale imaging with and without compression, as well as color, duplex, and spectral Doppler imaging before and after augmentation, was obtained of the deep system of the left lower extremity, including the common femoral, femoral, popliteal, posterior tibial, and peroneal veins. Comparison: 12/22/2024. Findings: Common femoral vein: No evidence of thrombus. Femoral vein: No evidence of thrombus. Popliteal vein: No evidence of thrombus. Calf veins: Moderate lower extremity edema. Not well visualized. Impression: No ultrasound evidence of deep venous thrombosis is seen within the limitations of the examination; calf veins are not well visualized secondary to lower extremity edema. Dictated by Omar Moon MD @ 01/16/2025 6:13:35 PM (Electronically Signed) Procedure Note Jacob Moon MD - 01/16/2025 For Patients: As a result of the Cures Act, medical imagingexams and procedure reports are released immediately into your electronicmedical record. You may view this report before your referring provider.If you have questions, please contact your health care provider. Indication: Swelling Technique: Real-time longitudinal and transverse sonographic richardson-scale imaging withand without compression, as well as color, duplex, and spectral Dopplerimaging before and after augmentation, was obtained of the deep system ofthe left lower extremity, including the common femoral, femoral,popliteal, posterior tibial, and peroneal veins. Comparison: 12/22/2024. Findings: Common femoral vein: No evidence of thrombus. Femoral vein: No evidence of thrombus. Popliteal vein: No evidence of thrombus. Calf veins: Moderate lower extremity edema. Not well visualized. Impression: No ultrasound evidence of deep venous thrombosis is seen within thelimitations of the examination; calf veins are not well visualizedsecondary to lower extremity edema. Dictated by Omar Moon MD @ 01/16/2025 6:13:35 PM (Electronically Signed) us Safia Antoine MD Final Re sult * PROCALCITONIN (01/16/2025 4:29 PM CDT) Only the most recent of3 resultswithin the time period is included. PROCALCITONIN 0.08 ng/ml 01/16/2025 5:05 PM CDT [facility] Blood BLOOD SPECIMEN / Unknown Venipuncture / Unknown 01/16/2025 4:29 PM CDT 01/16/2025 4:33 PM CDT [facility] - 01/16/2025 5:05 PM CDT Procalcitonin for initial assessment of Lower Respiratory Tract Infection: Results Interpretation <0.10 ng/mL Antibiotic therapy strongly discoraged. Indicates absent of bacterial infection. * 0.10 - 0.25 ng/mL Antibiotic therapy discouraged. Bacterial infection unlikely. * 0.26 - 0.50 ng/mL Antibiotic therapy encouraged. Bacterial infection possible. >0.50 ng/mL Antibiotic therapy strongly encouraged. Suggestive of presence of bacterial infection. *Antibiotic therapy should be considered regardless of PCT result if the patient is clinically unstable, is at high risk for adverse outcome, has strong evidence of bacterial pathogen, or the clinical context indicates antibiotic therapy is warranted. If antibiotics are withheld, reassess if symptoms persist/worsen and/or repeat PCT measurement within 6-24 hours. In order to assess treatment success and to support a decision to discontinue antibiotic therapy, follow up samples should be tested once every 1-2 days, based upon physician discretion taking into account patient's evolution and progress. Procalcitonin for initial assessment of severe sepsis risk: Results Interpretation <0.5 ng/ml A PCT level below 0.5 ng/ml on the first day of ICU admission is associated with a low risk for progression to severe sepsis and/or septic shock. > 2.0 ng/mL A PCT level above 2.0 ng/mL on the first day of ICU admission is associated with a high risk for progression to severe sepsis and/or septic shock. Note: Concentrations < 0.5 ng/mL do not exclude an infection, on account of localized infections (without systemic signs) which can be associated with such low concentrations, or a systemic infection in its initial stages(< 6 hours). Furthermore, increased procalcitonin can occur without infection. PCT concentrations between 0.5 and 2.0 ng/mL should be interpreted taking into account the patient's history. It is recommended to retest PCT within 6-24 hours if any concentrations < 2 ng/mL are obtained. us Safia Antoine MD SEND OUTS Final Re sult [facility] [address] [place] [address] * (ABNORMAL) CBC W PLT NO DIFF (01/16/2025 4:29 PM CDT) Only the most recent of2 resultswithin the time period is included. WHITE BLOOD COUNT 8.4 4.5 - 11.0 thou/cu mm 01/16/2025 4:36 PM T [facility] RED BLOOD COUNT 4.22(L) 4.30 - 5.90 mil/cu mm 01/16/2025 4:36 PM [facility] HEMOGLOBIN 12.4(L) 13.5 - 17.5 g/dL 01/16/2025 4:36 PM [facility] HEMATOCRIT 40.1 37.0 - 53.0 % 01/16/2025 4:36 PM [facility] MCV 95 80 - 100 fL 01/16/2025 4:36 PM T [facility] MCH 29.4 26.0 - 34.0 pg 01/16/2025 4:36 PM CDT [facility] MCHC 30.9(L) 32.0 - 36.0 g/dL 01/16/2025 4:36 PM CDT [facility] RDW 14.5 11.5 - 15.5 % 01/16/2025 4:36 PM CDT [facility] PLATELET COUNT 327 140 - 440 thou/cu mm 01/16/2025 4:36 PM CDT [facility] MPV 9.5 6.5 - 11.0 fL 01/16/2025 4:36 PM CDT [facility] Blood BLOOD SPECIMEN / Unknown Venipuncture / Unknown 01/16/2025 4:29 PM CDT 01/16/2025 4:33 PM CDT Safia Antoine MD HEMATOLOGY Final Re sult Performing Organization Address City/[facility]/ZIP Co de Phone Number [facility] [address] [place] [address] * (ABNORMAL) C-REACTIVE PROTEIN (01/16/2025 4:29 PM CDT) Only the most recent of6 resultswithin the time period is included. [facility] C-REACTIVE PROTEIN 3.8(H) <0.5 mg/dL 01/16/2025 4:53 PM CDT [facility] Blood BLOOD SPECIMEN / Unknown Venipuncture / Unknown 01/16/2025 4:29 PM CDT 01/16/2025 4:33 PM CDT Safia Antoine MD CHEMISTRY Final Re sult [facility] [address] [place] [address] * (ABNORMAL) BASIC METABOLIC PANEL (01/16/2025 4:29 PM CDT) Only the most recent of3 resultswithin the time period is included. [facility] SODIUM 144 136 - 145 mmol/L 01/16/2025 4:53 PM [facility] POTASSIUM 4.3 3.5 - 5.1 mmol/L 01/16/2025 4:53 PM [facility] CHLORIDE 110(H) 98 - 107 mmol/L 01/16/2025 4:53 PM [facility] CO2,TOTAL 24 22 - 29 mmol/L 01/16/2025 4:53 PM [facility] ANION GAP 10 5 - 18 01/16/2025 4:53 PM [facility] GLUCOSE 105(H) 70 - 99 mg/dL 01/16/2025 4:53 PM [facility] CALCIUM 9.0 8.8 - 10.4 mg/dL 01/16/2025 4:53 PM [facility] Comment: Reference ranges for this test were updated on 02/16/2024 to reflect our healthy population more accurately. Reference range changes are not retroactively applied to results, but previous results using the same methodology can be interpreted in the context of the new reference range. BUN 22(H) 6 - 20 mg/dL 01/16/2025 4:53 PM [facility] CREATININE 1.33(H) 0.70 - 1.20 mg/dL 01/16/2025 4:53 PM [facility] BUN/CREAT RATIO 17 10 - 20 4:53 PM [facility] eGFR 69(L) >90 mL/min/1. 73m2 01/16/2025 4:53 PM [facility] Comment:As of 2021, eG FR is calculated by the CKD-EPI creatinine equation without race adjustment. eGFR can be influenced by muscle mass, exercise, and diet. The reported eGFR is an estimation only and is only applicable if the renal function is stable. Blood BLOOD SPECIMEN / Unknown Venipuncture / Unknown 01/16/2025 4:29 PM CDT 01/16/2025 4:33 PM CDT Safia Antoine MD CHEMISTRY Final Re sult [facility] [address] [place] [address] * SODIUM (01/05/2025 5:30 AM CDT) Only the most recent of2 resultswithin the time period is included. SODIUM 140 136 - 145 mmol/L 01/05/2025 6:48 AM CDT [facility] Blood BLOOD SPECIMEN / Unknown Butterfly / Unknown 01/05/2025 5:30 AM CDT 01/05/2025 6:10 AM CDT Fabian Maldonado DO CHEMISTRY Fin al Result Performing Organization Address City/[facility]/ZIP Co de Phone Number [facility] [place]NAL ZIP [phone] [place] [address] * POTASSIUM (01/05/2025 5:30 AM CDT) Only the most recent of2 resultswithin the time period is included. POTASSIUM 4.3 3.5 - 5.1 mmol/L 01/05/2025 6:48 AM CDT [facility] Blood BLOOD SPECIMEN / Unknown Butterfly / Unknown 01/05/2025 5:30 AM CDT 01/05/2025 6:10 AM CDT Fabian Maldonado DO CHEMISTRY Fin al Result [facility] [place]NAL [address]IP [phone] [place] [address] * PLATELET COUNT (01/02/2025 5:49 AM CDT) PLATELET COUNT 284 140 - 440 thou/cu mm 01/02/2025 6:24 AM CDT [facility] MPV 10.0 6.5 - 11.0 fL 01/02/2025 6:24 AM CDT [facility] Blood BLOOD SPECIMEN / Unknown Butterfly / Unknown 01/02/2025 5:49 AM CDT 01/02/2025 6:20 AM CDT us Javon Menendez DO HEMATOLOGY Final Resu lt [facility] [place] [phone] [place] [address] * VANCOMYCIN PEAK (12/27/2024 11:32 AM CDT) Pathologist [facility] VANCOMYCIN,PEA K 36.1 35.0 - 45.0 ug/mL 12/27/2024 12:03 PM CDT [facility] DATE OF LAST DOSE,PEAK Not Given 12/27/2024 12:03 PM CDT [facility] TIME OF LAST DOSE,PEAK Not Given 12/27/2024 12:03 PM CDT [facility] Blood BLOOD SPECIMEN / Unknown Butterfly / Unknown 12/27/2024 11:32 AM CDT 12/27/2024 11:38 AM CDT us Yayo Cabrera MBChB KORI KAVITA Final Result [facility] INTERNAL ZIP [phone] [place] [id number] * VANCOMYCIN TROUGH (12/27/2024 8:42 AM CDT) Only the most recent of2 resultswithin the time period is included. Pathologist [facility] VANCOMYCIN,TRO UGH 16.0 7.0 - 20.0 ug/mL 12/27/2024 9:32 AM CDT [facility] DATE OF LAST DOSE,TROUGH Not Given 12/27/2024 9:32 AM CDT [facility] TIME OF LAST DOSE,TROUGH Not Given 12/27/2024 9:32 AM CDT [facility] Blood BLOOD SPECIMEN / Unknown Butterfly / Unknown 12/27/2024 8:42 AM CDT 12/27/2024 9:10 AM CDT us Yayo Cabrera MBChB KORI KAVITA Final Result [facility] INTERNAL ZIP [phone] [place] [id number] * (ABNORMAL) WHITE BLOOD COUNT (12/27/2024 5:33 AM CDT) Only the most recent of3 resultswithin the time period is included. WHITE BLOOD COUNT 13.2(H) 4.5 - 11.0 thou/cu mm 12/27/2024 5:50 AM CDT [facility] NRBC 0.0 % 12/27/2024 5:50 AM CDT [facility] ABS NRBC 0.0 thou /cu mm 12/27/2024 5:50 AM CDT [facility] Blood BLOOD SPECIMEN / Unknown Butterfly / Unknown 12/27/2024 5:33 AM CDT 12/27/2024 5:47 AM CDT us Martina Dillon DO HEMATOLOGY Final Resu lt [facility] INTERNAL ZIP [phone] [place] [id number] * (ABNORMAL) RENAL FUNCTION PANEL (12/26/2024 5:55 AM CDT) Only the most recent of3 resultswithin the time period is included. SODIUM 140 136 - 145 mmol/L 12/26/2024 6:36 AM CDT [facility] POTASSIUM 4.1 3.5 - 5.1 mmol/L 12/26/2024 6:36 AM CDT [facility] CHLORIDE 101 98 - 107 mmol/L 12/26/2024 6:36 AM CDT [facility] CO2,TOTAL 26 22 - 29 mmol/L 12/26/2024 6:36 AM CDT [facility] ANION GAP 13 5 - 18 12/26/2024 6:[address] [facility] GLUCOSE 116(H) 70 - 99 mg/dL 12/26/2024 6:[address] [facility] CALCIUM 9.2 8.8 - 10.4 mg/dL 12/26/2024 6:[address] [facility] Comment: Reference ranges for this test were updated on 02/16/2024 to reflect our healthy population more accurately. Reference range changes are not retroactively applied to results, but previous results using the same methodology can be interpreted in the context of the new reference range. BUN 20 6 - 20 mg/dL 12/26/2024 6:[address] [facility] CREATININE 1.00 0.70 - 1.20 mg/dL 12/26/2024 6:[address] [facility] BUN/CREAT RATIO 20 10 - 20 6:[address] [facility] eGFR >90 >90 mL/min/1. 73m2 12/26/2024 6:[address] [facility] Comment:As of 2021, eG FR is calculated by the CKD-EPI creatinine equation without race adjustment. eGFR can be influenced by muscle mass, exercise, and diet. The reported eGFR is an estimation only and is only applicable if the renal function is stable. PHOSPHORUS 3.6 2.5 - 4.5 mg/dL 12/26/2024 6:[address] [facility] ALBUMIN 2.5(L) 4.0 - 4.9 g/dL 12/26/2024 6:36 AM T [facility] Blood BLOOD SPECIMEN / Unknown Butterfly / Unknown 12/26/2024 5:55 AM CDT 12/26/2024 6:10 AM CDT us Jose Luis Valdovinos DO CHEMISTRY Final Resul t [facility] INTERNAL ZIP [phone] [place] [address] * US RENAL AND BLADDER COMPLETE (12/23/2024 4:58 PM CDT) Anatomical Region Laterality Modality Abdomen, AORTA, KIDNEYS Ultrasou nd 12/23/2024 4:58 PM CDT Impressions 12/23/2024 5:53 PM CDT 1. No evidence for hydronephrosis. 2. Detail of the renal parenchyma is very limited due to the patient's body habitus. Narrative 12/23/2024 5:53 PM CDT For Patients: As a result of the Cures Act, medical imaging exams and procedure reports are released immediately into your electronic medical record. You may view this report before your referring provider. If you have questions, please contact your health care provider. EXAM: US RENAL AND BLADDER COMPLETE LOCATION: [facility] DATE: 12/23/2024 INDICATION: Renal failure. COMPARISON: None. TECHNIQUE: Routine Bilateral Renal and Bladder Ultrasound. FINDINGS: RIGHT KIDNEY: 15.1 cm. No hydronephrosis. Detail of the renal parenchyma is limited due to the patient's body habitus. LEFT KIDNEY: 13.1 cm. No hydronephrosis. Detail of the renal parenchyma is very limited due to the patient's body habitus. BLADDER: Normal. Procedure Note Nic Diallo MD - 12/23/2024 For Patients: As a result of the Cures Act, medical imagingexams and procedure reports are released immediately into your electronicmedical record. You may view this report before your referring provider.If you have questions, please contact your health care provider. EXAM: US RENAL AND BLADDER COMPLETE LOCATION: [facility] DATE: 12/23/2024 INDICATION: Renal failure. COMPARISON: None. TECHNIQUE: Routine Bilateral Renal and Bladder Ultrasound. FINDINGS: RIGHT KIDNEY: 15.1 cm. No hydronephrosis. Detail of the renal parenchymais limited due to the patient's body habitus. LEFT KIDNEY: 13.1 cm. No hydronephrosis. Detail of the renal parenchyma isvery limited due to the patient's body habitus. BLADDER: Normal. IMPRESSION: 1. No evidence for hydronephrosis. 2. Detail of the renal parenchyma is very limited due to the patient'sbody habitus. Yayo Cabrera [facility] US Final Result * BLOOD CULTURE (12/23/2024 1:35 PM CDT) Only the most recent of2 resultswithin the time period is included. CULTURE No Growth. 12/28/2024 4:11 PM CDT [facility] Blood BLOOD SPECIMEN / Unknown Butterfly / Unknown 12/23/2024 1:35 PM CDT 12/23/2024 1:59 PM CDT Narrative [facility] - 12/28/2024 4:11 PM CDT Low volume blood culture received; possible false negative culture. Kalyan Silvestre MD MICROBIOLOGY Final Result Performing Organization Address City/[facility]/ZIP Co de Phone Number [facility] [address] [place] [address], * (ABNORMAL) FRACT EXCR OF SODIUM, SERUM (12/22/2024 10:38 PM CDT) SODIUM 133(L) 136 - 145 mmol/L 12/23/2024 2:09 PM CDT [facility] CREATININE 3.39(H) 0.70 - 1.20 mg/dL 12/23/2024 2:09 PM CDT [facility] eGFR 23(L) >90 mL/min/1.7 3m2 12/23/2024 2:09 PM CDT [facility] Comment:As of 2021, eG FR is calculated by the CKD-EPI creatinine equation without race adjustment. eGFR can be influenced by muscle mass, exercise, and diet. The reported eGFR is an estimation only and is only applicable if the renal function is stable. Blood BLOOD SPECIMEN / Unknown Butterfly / Unknown 12/22/2024 10:38 PM CDT 12/22/2024 10:44 PM CDT Khoi Nicole MD CHEMISTRY Final Resu lt [facility] [address] [place] [address], * FRACT EXCR OF SODIUM, URINE (12/22/2024 10:33 PM CDT) SODIUM,RAW URINE <20 mmol/L 12/24/19 2:54 PM CDT [facility] SODIUM 133 mmol/L 12/23/2024 2:54 PM CDT [facility] CREATININE RAW URINE 208 mg/dL 12/23/2024 2:54 PM CDT [facility] CREATININE 3.39 mg/dL 12/23/2024 2:54 PM CDT [facility] FRACT EX OF SODIUM 12/23/2024 2:54 PM CDT [facility] Comment:Urine Sodium below m easurement range, unable to calculate. Urine URINE SPECIMEN / Unknown Non-Blood / Unknown 12/22/2024 10:33 PM CDT 12/22/2024 10:45 PM CDT us Khoi Nicole MD URINE Final Resu lt Performing Organization Address City/[facility]/ZIP Co de Phone Number [facility] [address] [place] [address], * (ABNORMAL) URINALYSIS MICROSCOPIC (12/22/2024 10:33 PM CDT) RBC 6-10(A) 0-2, None Seen /HPF 12/22/2024 11:10 PM CDT [facility] WBC 3-5 0-2, 3-5, None Seen /HPF 12/22/2024 11:10 PM CDT [facility] BACTERIA Many(A) None Seen, Rare, Few Bacteria/ HPF 12/22/2024 11:10 PM CDT [facility] EPITHELIAL CELLS Few None Seen, Few Epi/HPF 12/22/2024 11:10 PM CDT [facility] HYALINE CASTS 0-2 0-2, 3-5 /LPF 12/22/2024 11:10 PM [facility] GRANULAR CASTS 0-2(A) (none) /LPF 12/22/2024 11:10 PM [facility] AMORPHOUS Present(A) (none) 12/22/2024 11:10 PM [facility] Urine URINE SPECIMEN / Unknown Non-Blood / Unknown 12/22/2024 10:33 PM CDT 12/22/2024 10:45 PM CDT us Khoi Nicole MD URINE Final Resu lt [facility] [address] [place] [address] * (ABNORMAL) UA W/ SEDIMENT EXAM REFLEXED PER CRITERIA (12/22/2024 10:33 PM CDT) COLOR Yellow Yellow Color 12/22/2024 11:08 PM [facility] CLARITY Clear Clear Clarity 12/22/2024 11:08 PM [facility] SPECIFIC GRAVITY,URINE 1.020 1.010, 1.015, 1.020, 1.025 12/22/2024 11:08 PM [facility] PH,URINE 5.5 6.0, 7.0, 8.0, 5.5, 6.5, 7.5, 8.5 12/22/2024 11:08 PM [facility] UROBILINOGEN,QU ALITATIVE Normal Normal EU/dl 12/22/2024 11:08 PM [facility] PROTEIN, URINE 100(A) Negative mg/dL 12/22/2024 11:08 PM [facility] GLUCOSE, URINE Negative Negative mg/dL 12/22/2024 11:08 PM [facility] KETONES,URINE Negative Negative mg/dL 12/22/2024 11:08 PM [facility] BILIRUBIN,URINE Abnormal(A) Negative 12/23/19 11:08 PM [facility] Comment:A variety of metabol ites and/or medications may result in a positive bilirubin result. Clinical correlation is recommended. OCCULT BLOOD,URINE Moderate(A) Negative 12/22/2024 11:08 PM T [facility] NITRITE Negative Negative 12/22/2024 11:08 PM CDT [facility] LEUKOCYTE ESTERASE Negative Negative 12/22/2024 11:08 PM T [facility] Urine URINE SPECIMEN / Unknown Non-Blood / Unknown 12/22/2024 10:33 PM CDT 12/22/2024 10:45 PM CDT us Khoi Nicole MD URINE Final Resu lt [facility] [address] [place] [address] * (ABNORMAL) CBC WITH AUTO DIFFERENTIAL (12/22/2024 3:47 PM CDT) WHITE BLOOD COUNT 19.5(H) 4.5 - 11.0 thou/cu mm 12/22/2024 4:35 PM [facility] RED BLOOD COUNT 4.68 4.30 - 5.90 mil/cu mm 12/22/2024 4:35 PM [facility] HEMOGLOBIN 13.8 13.5 - 17.5 g/dL 12/22/2024 4:35 PM [facility] HEMATOCRIT 40.8 37.0 - 53.0 % 12/22/2024 4:35 PM [facility] MCV 87 80 - 100 fL 12/22/2024 4:35 PM [facility] MCH 29.5 26.0 - 34.0 pg 12/22/2024 4:35 PM [facility] MCHC 33.8 32.0 - 36.0 g/dL 12/22/2024 4:35 PM [facility] RDW 14.4 11.5 - 15.5 % 12/22/2024 4:35 PM [facility] PLATELET COUNT 242 140 - 440 thou/cu mm 12/22/2024 4:35 PM [facility] MPV 11.2(H) 6.5 - 11.0 fL 12/22/2024 4:35 PM CDT [facility] Blood BLOOD SPECIMEN / Unknown Venipuncture / Unknown 12/22/2024 3:47 PM CDT 12/22/2024 3:51 PM CDT Inocencio Frost MD HEMATOLOGY Zaria l Result Performing Organization Address City/[facility]/ZIP Co de Phone Number [facility] [address] [place] [address] * (ABNORMAL) RED CELL MORPHOLOGY (12/22/2024 3:47 PM CDT) ECHINOCYTES Few 12/22/2024 4:34 PM CDT [facility] RBC COMMENT Present(A) RBC morphology appears normal, RBC morphology within normal limits for newborns. 12/22/2024 4:34 PM CDT [facility] LABORATORY LARGE PLATELETS Present 4:34 PM CDT [facility] Blood BLOOD SPECIMEN / Unknown Venipuncture / Unknown 12/22/2024 3:47 PM CDT 12/22/2024 3:51 PM CDT Inocencio Frost MD HEMATOLOGY Zaria l Result Performing Organization Address City/[facility]/ZIP Co de Phone Number [facility] [address] [place] [address] * PLATELET ESTIMATE (12/22/2024 3:47 PM CDT) PLATELET ESTIMATE Adequate Adequate, No estimate 12/22/2024 4:34 PM CDT [facility] Blood BLOOD SPECIMEN / Unknown Venipuncture / Unknown 12/22/2024 3:47 PM CDT 12/22/2024 3:51 PM CDT Inocencio Frost MD HEMATOLOGY Zaria l Result [facility] [address] [place] [address] * LACTATE VENOUS (12/22/2024 3:47 PM CDT) [facility] LACTATE,VENOUS 1.4 0.5 - 2.0 mmol/L 12/22/2024 4:09 PM CDT [facility] Blood BLOOD SPECIMEN / Unknown Venipuncture / Unknown 12/22/2024 3:47 PM CDT 12/22/2024 3:51 PM CDT us Inocencio Frost MD CHEMISTRY Zaria l Result [facility] [address] [place] [address] * (ABNORMAL) MANUAL DIFFERENTIAL (12/22/2024 3:47 PM CDT) [facility] % NEUTROPHILS 86.0 % 12/22/2024 4:34 PM [facility] % LYMPHOCYTES 5.0 % 12/22/2024 4:34 PM [facility] % MONOCYTES 6.0 % 12/22/2024 4:34 PM [facility] % EOSINOPHILS 1.0 % 12/22/2024 4:34 PM [facility] % BASOPHILS 0.0 % 12/22/2024 4:34 PM [facility] % METAMYELOCYTES 1.0(H) <0.1 % 12/23/19 25 4:34 PM [facility] % MYELOCYTES 1.0(H) <0.1 % 12/22/2024 4:34 PM [facility] NEUTROPHILS ABSOLUTE 16.8(H) 1.7 - 7.0 thou/cu mm 12/22/2024 4:34 PM [facility] LYMPHOCYTES ABSOLUTE 1.0 0.9 - 2.9 thou/cu mm 12/22/2024 4:34 PM [facility] MONOCYTES ABSOLUTE 1.2(H) <0.9 thou/cu mm 12/22/2024 4:34 PM CDT [facility] EOSINOPHILS ABSOLUTE 0.2 <0.5 thou/cu mm 12/22/2024 4:34 PM CDT [facility] BASOPHILS ABSOLUTE 0.0 <0.3 thou/cu mm 12/22/2024 4:34 PM T [facility] ABSOLUTE METAMYELOCYTES 0.2(H) <=0.0 thou/cu mm 12/22/2024 4:34 PM T [facility] ABSOLUTE MYELOCYTES 0.2(H) <=0.0 thou/cu mm 12/22/2024 4:34 PM [facility] Blood BLOOD SPECIMEN / Unknown Venipuncture / Unknown 12/22/2024 3:47 PM CDT 12/22/2024 3:51 PM CDT us Inocencio Frost MD HEMATOLOGY Zaria l Result [facility] [address] [place] [id number] * (ABNORMAL) COMP METABOLIC PANEL (12/22/2024 3:47 PM CDT) SODIUM 132(L) 136 - 145 mmol/L 12/22/2024 4:12 PM [facility] POTASSIUM 3.2(L) 3.5 - 5.1 mmol/L 12/22/2024 4:12 PM [facility] CHLORIDE 95(L) 98 - 107 mmol/L 12/22/2024 4:12 PM [facility] CO2,TOTAL 21(L) 22 - 29 mmol/L 12/22/2024 4:12 PM [facility] ANION GAP 16 5 - 18 12/22/2024 4:12 PM [facility] GLUCOSE 120(H) 70 - 99 mg/dL 12/22/2024 4:12 PM [facility] CALCIUM 9.0 8.8 - 10.4 mg/dL 12/22/2024 4:12 PM [facility] Comment: Reference ranges for this test were updated on 02/16/2024 to reflect our healthy population more accurately. Reference range changes are not retroactively applied to results, but previous results using the same methodology can be interpreted in the context of the new reference range. BUN 54(H) 6 - 20 mg/dL 12/22/2024 4:12 PM [facility] CREATININE 4.12(H) 0.70 - 1.20 mg/dL 12/22/2024 4:12 PM [facility] BUN/CREAT RATIO 13 10 - 20 4:12 PM [facility] eGFR 18(L) >90 mL/min/1. 73m2 12/22/2024 4:12 PM [facility] Comment:As of 2021, eG FR is calculated by the CKD-EPI creatinine equation without race adjustment. eGFR can be influenced by muscle mass, exercise, and diet. The reported eGFR is an estimation only and is only applicable if the renal function is stable. ALBUMIN 3.0(L) 4.0 - 4.9 g/dL 12/22/2024 4:12 PM [facility] PROTEIN,TOTAL 7.3 6.0 - 8.0 g/dL 12/22/2024 4:12 PM [facility] BILIRUBIN,TOTAL 0.4 0.0 - 1.2 mg/dL 12/22/2024 4:12 PM [facility] ALK PHOSPHATASE 73 40 - 129 IU/L 12/22/2024 4:12 PM [facility] ALT (SGPT) 25 10 - 50 IU/L 12/22/2024 4:12 PM [facility] AST (SGOT) 40 10 - 50 IU/L 12/22/2024 4:12 PM [facility] Blood BLOOD SPECIMEN / Unknown Venipuncture / Unknown 12/22/2024 3:47 PM CDT 12/22/2024 3:51 PM CDT us Inocencio Frost MD CHEMISTRY Zaria l Result [facility] [address] [place] [address] * EKG 12 Lead (12/22/2024 3:43 PM CDT) Interpretation Normal sinus rhythm Non-specific intra-ventric ular conduction block Abnormal ECG When compared with ECG of 10-Mar-2023 23:42, QRS duration has increased Nonspecific T wave abnormality, improved in Lateral leads BEYOND NOW Ventricular Rate 86 BPM BEYOND NOW Atrial Rate 86 BPM BEYOND NOW P-R Interval 180 ms BEYOND NOW QRS Duration 128 ms BEYOND NOW QT 382 ms BEYOND NOW QTc 457 ms BEYOND NOW P [place] 35 degrees BEYOND NOW R [place] 50 degrees BEYOND NOW T [place] 82 degrees BEYOND NOW 12/22/2024 3:43 PM CDT 12/22/2024 4:51 PM CDT us Inocencio Frost MD EKG ORD Zaria l Result [place]OND NOW [place], [place] * (ABNORMAL) LIPID PANEL W REFLEX MEASURED LDL (12/07/2023 3:21 PM CDT) CHOLESTEROL,TOTAL 190 100 - 199 mg/dL 12/07/2023 11:23 PM CDT [facility] Comment: Cholesterol, Total Reference Ranges Desirable <200 mg/dL Borderline 200-239 mg/dL High >=240 mg/dL TRIGLYCERIDES 349(H) <150 mg/dL 12/07/2023 11:23 PM CDT [facility] HDL CHOLESTEROL 31(L) >40 mg/dL 11:23 PM CDT [facility] NON-HDL CHOLESTEROL 159(H) <145 mg/dl 12/07/2023 11:23 PM CDT [facility] CHOL/HDL RATIO 6.13(H) <4.50 12/07/2023 11:23 PM CDT [facility] LDL CHOLESTEROL 89 <=130 mg/dL 12/07/2023 11:23 PM CDT [facility] VLDL CHOLESTEROL 70(H) <=30 mg/dL 12/07/2023 11:23 PM CDT [facility] PROVIDER ORDERED STATUS RANDOM 12/07/2023 11:23 PM CDT [facility] Blood BLOOD SPECIMEN / Unknown Venipuncture / Unknown 12/07/2023 3:21 PM CDT 12/07/2023 3:21 PM CDT us Mary Fowler DO CHEMISTRY Final [facility]u [facility] [address] [place] [address], [place] from Last 3 Months or Most Recently Relevant to Health Maintenance Additional Health Concerns Infection Onset Date Last Indicated MRSA Comment:Order Contact Precautions. * 12/23/24 - Not eligible for clearance screening due to current skin condition/Cellulitis Nares surveillance cultures needed to clear patient if <12 months since positive culture. If >12 months since positive culture, precautions can be discontinued if patient has no MRSA risk factors. #1 +MRSA 03/11/23 Nares exclusions for contact precaution discontinuation (if > 12 months since positive culture): resides in acute/terminal manager care, receiving hemodialysis, has chronic open wounds/skin damage, has long-term percutaneous indwelling medical devices Exclusions for nares collection (if <12 months since positive culture) include all of the previous exclusions plus patients on antibiotics 7 days prior to collection 03/11/2023 03/11/2023 Insurance [facility] [employer] [address] [place] [id number] Advance Directives * Full Code (Latest Code Status on File) Date Activated Date Inactivated Comments 01/16/2025 4:56 PM * Full Code Date Activated Date Inactivated Comments 12/23/2024 5:44 AM 01/05/2025 5:14 PM Question Answer Comments Code Status Discussion: Reviewed Preferences * Full Code Date Activated Date Inactivated Comments 03/10/2023 11:20 PM 03/11/2023 3:37 PM Question Answer Comments Code Status Discussion: Reviewed Preferences * Full Code Date Activated Date Inactivated Comments 08/22/2020 8:58 PM 08/29/2020 4:49 PM Question Answer Comments Code Status Discussion: Not Discussed * Full Code Date Activated Date Inactivated Comments 04/12/2018 11:03 PM 04/20/2018 3:21 PM Care Teams Lining Inserter Relationship Specialty Start Date End Date Mary [place] [address] [place] [address] [place] [address] PCP - General Family Practice 01/21/24 [facility] [address] [place] [address] 01/05/25
[2025-03-20 20:05] LABS: Hematocrit* 42.6 % (37.0-53.0); Hemoglobin* 13.9 gm/dL (13.5-17.5); Immature Granulocytes Abs Auto 0.01 K/uL (0.00-0.30); Immature Granulocytes Pct Auto 0.1 %; Lymphocytes Absolute Auto 2.01 K/uL (0.90-2.90); Mean Corpuscular HGB Conc 33 gm/dL (32-36); Mean Corpuscular Hemoglobin 30 pg (26-34); Mean Corpuscular Volume 92 fL (80-100); RDW Coefficient of Variation % 13.3 % (11.5-15.5); Red Blood Count* 4.61 m/uL (4.30-5.90); White Blood Count* 7.07 K/uL (4.50-11.00)
[2025-03-20 20:09] LABS: Slide Review Reflex No
[2025-03-20 20:19] LABS: Chloride* 100 mmol/L (96-114)
[2025-03-20 20:20] LABS: Potassium* 4.0 mmol/L (3.6-5.1); Sodium* 140 mmol/L (135-149)
[2025-03-20 20:23] LABS: Anion Gap 11 mEq/L (7-15); Blood Urea Nitrogen* 18 mg/dL (5-24); Calcium* 8.8 mg/dL (8.4-10.6); Carbon Dioxide* 29 mmol/L (20-32); Creatinine* 1.4 mg/dL (0.5-1.5); Est. Creatinine Clearance* 72.42; Estimated Glomerular Filt Rate 65 ml/min; Glucose* 107 mg/dL (60-115)
--- NOTE | 2025-03-20 22:15 | PM.GSCN ---
History of Present Illness Consult details Date Seen: 03/20/25 Consult date: 03/20/25 Narrative: 39-year-old male was referred to emergency room from wound clinic with worsening left calf wound and I was asked by Dr. Laird to see him in consultation. Patient has been going to Wound Clinic and had 2 new areas of skin open up in the left calf. He feels that in the last 10 days he had increased pain and sensitivity in that area. He denied fevers. When he was seen in the Wound Clinic they ?squeezed? white stuff out of 1 of the openings. Extremity CT was then obtained and subcutaneous air was seen and patient was then recommended to be sent to the emergency room. I reviewed patient's left lower leg CT. CT shows small scattered foci of air in the subcutaneous fat. This does not extend through the fascia or into the muscle. Review of Systems Narrative: General: no fevers HENT: no problems swallowing CV: no shortness of breath Resp: no cough GI: No nausea, vomiting, abdominal pain : no dysuria, no increased urinary frequency, no hematuria Skin: no new rashes Musculoskeletal: no back pain Neuro: no muscle weakness Psyche: no depression, no anxiety PFSH PFSH Social History Smoking Status: Current every day smoker What tobacco products do you use: cigarettes Smoking packs per day: 1 Smoking cigarettes per day: 20.0 How often do you have a drink containing alcohol: never AUDIT-C Alcohol total score: 0 Non-prescribed substance use: denies use Meds Home Medications and Allergies Home Medications ?Medication ?Instructions ?Recorded ?Confirmed ?Type bumetanide 0.5 mg tablet 0.5 mg PO BID #14 tabs 07/18/24 12/21/24 Rx lisinopril 40 mg tablet 40 mg PO DAILY #7 tabs 07/18/24 01/18/25 Rx potassium chloride 20 mEq 20 meq PO DAILY #7 tabs 07/18/24 01/18/25 Rx tablet,extended release(part/cryst) (Klor-Con M) aspirin 81 mg chewable tablet 1 tab PO DAILY 12/20/24 01/18/25 History metoprolol succinate 50 mg 50 mg PO DAILY 12/20/24 01/18/25 History tablet,extended release 24 hr semaglutide (weight loss) 0.5 mg subcut 12/20/24 12/21/24 History mg/0.5 mL subcutaneous pen injector (Wegovy) Held on 01/18/25. Instructions: due to infection in leg spironolactone 25 mg tablet 25 mg PO DAILY 12/20/24 01/18/25 History bumetanide 1 mg tablet 1 mg PO DAILY 12/21/24 01/18/25 History semaglutide (weight loss) 0.25 mg subcut 12/21/24 12/21/24 History mg/0.5 mL subcutaneous pen injector (Wegovy) Held on 01/18/25. Instructions: Order Change cefdinir 300 mg capsule 300 mg PO BID 10 days #20 caps 01/18/25 Rx methocarbamol 500 mg tablet PO 01/18/25 History oxycodone 5 mg tablet PO 01/18/25 History cephalexin 500 mg capsule 500 mg PO TID 10 days #30 caps 02/28/25 Rx Allergies Allergy/AdvReac Type Severity Reaction Status Date / Time concrete Allergy Unknown Uncoded 12/21/24 16:39 Exam Narrative: Exam Narrative: General appearance: Alert, cooperative, and in no distress Pulmonary: Chest symmetric, lungs clear bilaterally Cardiovascular Heart: Regular rate and rhythm, S1, S2, there is a systolic murmur Skin: In the left mid calf there are 2 skin openings with the largest measuring 1 cm in diameter. I am able to probe the larger opening with my pinky finger. The superior opening the smaller and patient is more tender in this area. The bridge of the skin is not necrotic but there is fluid palpated superior medial to the superior skin opening. The skin surrounding these 2 skin openings is firm to palpation but there is no fluctuance suggestive of an abscess. Psychiatric: Alert, cooperative, normal affect. Const: Vital Signs, click to edit/add: Vital Signs - 24 hr 03/20/25 18:52 Temperature 98.4 F Pulse Rate [Pulse Oximeter] 73 Respiratory Rate 20 Blood Pressure [Ri ght Forearm] 178/104 H Pulse Oximetry 98 Oxygen Delivery Me thod Room Air Results Labs Labs: Diabetes panel 03/20/25 Range/Units 19:55 Sodium 140 (135-149) mmol/L Potassium 4.0 (3.6-5.1) mmol/L Chloride 100 (96-114) mmol/L Carbon Dioxide 29 (20-32) mmol/L BUN 18 (5-24) mg/dL Creatinine 1.4 (0.5-1.5) mg/dL Glucose 107 (60-115) mg/dL Calcium 8.8 (8.4-10.6) mg/dL Calcium panel 03/20/25 Range/Units 19:55 Calcium 8.8 (8.4-10.6) mg/dL Pituitary panel 03/20/25 Range/Units 19:55 Sodium 140 (135-149) mmol/L Potassium 4.0 (3.6-5.1) mmol/L Chloride 100 (96-114) mmol/L Carbon Dioxide 29 (20-32) mmol/L BUN 18 (5-24) mg/dL Creatinine 1.4 (0.5-1.5) mg/dL Glucose 107 (60-115) mg/dL Calcium 8.8 (8.4-10.6) mg/dL Adrenal panel 03/20/25 Range/Units 19:55 Sodium 140 (135-149) mmol/L Potassium 4.0 (3.6-5.1) mmol/L Chloride 100 (96-114) mmol/L Carbon Dioxide 29 (20-32) mmol/L BUN 18 (5-24) mg/dL Creatinine 1.4 (0.5-1.5) mg/dL Glucose 107 (60-115) mg/dL Calcium 8.8 (8.4-10.6) mg/dL All other labs normal. Progress Note:A&P Assessment and plan (1) Nonhealing nonsurgical wound: Status: Acute Plan 39-year-old male with BMI of 70 presents with worsening left calf chronic wound. I discussed with the patient my clinical findings. Patient's wound needs to be debrided and necrotic tissue under the skin needs to be removed. However, given patient's BMI I recommended to perform this debridement under local anesthesia only. We are unable to accommodate this patient with intubation at the [facility]. Patient is in agreement to proceed with local anesthesiaonly . If local anesthesia is enough, the goal would be to debride the wound to healthy tissue and pack it. If for some reason we are unable to anesthetize it adequately with local anesthetic only, and we have to abort the procedure, we will then refer the patient to a tertiary center on outpatient basis for complete debridement. The procedure was discussed in detail and the risks associated procedure were also discussed and patient agreed to proceed. Patient will be seen in same-day surgery tomorrow.
== END 2025-03-20 22:32 | disposition home or self-care (01) ==
PROVIDERS: Emergency Provider Family Medicine; PCP Family Medicine
DX: T81.89XA Other complications of procedures, not elsewhere classified, initial encounter (principal); L02.416 Cutaneous abscess of left lower limb
CPT/HCPCS: 36415; 80048; 85025; 86140; 99283; 99284

== ENCOUNTER 2025-03-21 10:36 | Day surgery (SDC) | payer BC, SELFPAY ==
[2025-03-21 10:57] VITALS: BMI 70.3
[2025-03-21 11:02] VITALS: BP 156/105; PULSE 66; RESP 18; TEMP 36.3; O2SAT 96
[2025-03-21] MEDS: LACTATED RINGERS 1000 ML 1,000 ML 100 ML IV (11:20)
[2025-03-21] MEDS: SODIUM CHLORIDE 0.9 % (FLUSH) 10 ML SYRINGE IVF (11:28)
--- NOTE | 2025-03-21 11:51 | W.PM.H&PU ---
History & Physical Update History & Physical Update H&P Reviewed and patient assessed: No changes noted
--- NOTE | 2025-03-21 11:51 | PM.GSPRC ---
Operative Note Date of procedure: 03/21/25 Pre-op diagnosis: 1. Worsening chronic left calf wound. Post-op diagnosis: Same Type of Procedure: 1. Excisional debridement of left calf wound. Indications: 39-year-old male with BMI of 70 presented to emergency room with chronic left calf wound. Patient had this wound for over a week. His pain was increasing and he was seen in wound clinic. They were concerned about necrotic tissue under the skin since patient had small skin openings with tunneling. An extremity CT was obtained that showed small foci of subcutaneous air. Patient was then referred to emergency room. Patient's WBC was normal. Patient's vital signs were normal. On clinical exam patient had 2 skin openings in the left mid calf. The larger opening was large enough to fit my pinky finger and extended inferiorly. The superior opening had tunneling as well. There is no surrounding cellulitis. There was no fluctuance suggestive of an abscess. Superior medially to the smallest skin opening fluid was palpated. Given patient's clinical history and his clinical exam, incision and drainage and debridement were recommended. Given patient's BMI, I recommended to proceed with doing this in the operating room under local and regional anesthesia. The procedure was discussed in detail. The risks associated procedure including infection, bleeding, and the need for additional procedures were all discussed with the patient, and he agreed to proceed. Procedure Description: After discussing the risks and benefits of the procedure, the patient signed informed consent.? Regional anesthesia was administered in same-day surgery. The operative site was marked and the patient was brought to the operating room. Patient was left on the cart and positioned in the right lateral decubitus position. The operative site was then prepped and draped in the usual sterile fashion.? A time-out was then performed. Local anesthetic was injected around 2 skin openings and in subcutaneous fat. A culture swab was sent to microbiology. The 2 skin openings that were present were measuring 2.2 x 1.7 cm and 1.1 x 1.1 cm. The bridge between 2 skin openings was excised with cautery. Hypergranulation tissue at the skin edges was debrided with a curette bluntly. The subcutaneous fat was then debrided around circumference of the newly created wound with cautery sharply and with a curette bluntly. Superiorly tunneling was seen extending for 1.5 cm. I incised the skin at its superior aspect to have better exposure to this area of undermining. The area of undermining was then debrided sharply with cautery and bluntly with a curette, and fibrinous exudate was debrided. There was no frankly necrotic fat. The base of the wound had hypergranulation tissue and this was debrided bluntly with a curette. Inferiorly, there was also undermining with white fibrinous slough. The inferior skin was incised perpendicular to the main skin opening. The undermining was 1.5 cm as well and was debrided down to the healthy bleeding tissue. The entire wound was friable. Bleeding was seen at the superior and inferior edge and that was controlled was cautery and 3-0 Vicryl stick tie. SurgiSeal was used and pressure was held in the wound bed to control the bleeding. A new piece of Surgicel was placed at the superior aspect of the wound and the wound was then packed with moist 4 x 4 opened gauze. One piece of gauze was able to fit and fill the wound. This new wound was measuring 4.1 x 3.2 cm. Dry gauze and ABD pad were placed over the incision. The left lower leg was then wrapped with an Tyler wrap. All counts were correct at the end of the case. ? The patient was then woken and transported to the recovery area in stable condition. ? The patient tolerated the procedure well. Findings: Fibrinous slough with undermining superiorly and inferiorly was seen. The base of the wound had hypergranulation tissue that was also debrided. Anesthesia: regional and local Surgeon: Bhupinder Chandler MD Estimated blood loss (mL): 90 Additional Specimen Information: Wound swab was sent for culture. Condition: stable Disposition: same day
[2025-03-21 11:55] VITALS: PULSE 63; RESP 16; O2SAT 95
--- NOTE | 2025-03-21 11:55 | SUR.PREOP ---
TIME?OUT:?1145 PT/RN/MDA?VERIFICATION?OF?SURGICAL?SITE,?PROCEDURE,?AND?CONSENT OBTAINED?PRIOR?TO?INVASIVE?PROCEDURE.
[2025-03-21] MEDS: CEFAZOLIN 2 GM INJ 3 GM IVP (12:12)
[2025-03-21] MEDS: LIDOCAINE 1 % PF 30 ML 12.5 ML INJECTION (12:18)
[2025-03-21] MEDS: BUPIVACAINE 0.25% 30 ML 12.5 ML INJECTION (12:18)
--- NOTE | 2025-03-21 12:21 | P.ANES_ITS ---
Anesthesia Charges Start Date/Time Anesthesia Start Date: 03/21/25 Anesthesia Start Time: 12:01 Stop Date/Time Anesthesia Stop Date: 03/21/25 Anesthesia Stop Time: 12:59 Coding CPT Codes CPT Codes: ANESTH LOWER LEG SURGERY - 53854 ([id number]) QK - PRODUCT AMBASSADOR 2-4 CNCRNT ANES PROC, QX - TIME BUYER SVC W/ MD MED DIRECTION, P3 - PATIENT W/SEVERE SYS DISEASE
--- NOTE | 2025-03-21 12:21 | P.EN_ITS ---
Chart Event Note Time Seen by Provider: 11:46 Date Seen: 03/21/25 Chart Event Note: Nerve Block Nerve Block Time Seen by Provider: 11:46 Date Seen: 03/21/25 Type of block popliteal Side: left Time out performed: Yes Verification of patient name: Yes Verification of date of : Yes Site marking: site marked Name of person performing procedure: Brent Continuous monitoring Was continuous monitoring of O2 sat, B/P, secured entrance monitor, recorded every 15 minutes?: Yes Procedure Checklist: sterile prep, needles and gloves Ultrasound guided. Images saved: Yes Medications given in 5ml increments after negative aspiration: Lidocaine %: 2 mL: 20 Needle gauge: 20 Patient tolerated procedure well: Yes Additional comments: Needle noted adjacent to nerve Block Charges Block Charge (with Pro Fee): Sciatic Nerve Use of Ultrasound Machine for Block: Yes- US Guidance/pain block
--- NOTE | 2025-03-21 12:21 | W.ANESCHARGE ---
Anesthesia Charges Start Date/Time Anesthesia Start Date: 03/21/25 Anesthesia Start Time: 12:01 Stop Date/Time Anesthesia Stop Date: 03/21/25 Anesthesia Stop Time: 12:59 Coding CPT Codes CPT Codes: ANESTH LOWER LEG SURGERY - 57238 ([id number]) QK - SODA MAKER 2-4 CNCRNT ANES PROC, QX - CORRECTIONAL OFFICER CAPTAIN SVC W/ MD MED DIRECTION, P3 - PATIENT W/SEVERE SYS DISEASE
--- NOTE | 2025-03-21 12:29 | SUR.OPER ---
PATIENT QUESTIONS ANSWERED SATISFACTORILY PREOPERATIVELY. PATIENT BROUGHT TO OR #1 PER CART. Patient positioned lateral left on the cart. Final approval of positioning by surgeon.
[2025-03-21 12:56] VITALS: BP 136/88; PULSE 63; RESP 16; TEMP 36.1; O2SAT 96
--- NOTE | 2025-03-21 13:00 | P.ANES_ITS ---
Anesthesia Charges Start Date/Time Anesthesia Start Date: 03/21/25 Anesthesia Start Time: 12:01 Stop Date/Time Anesthesia Stop Date: 03/21/25 Anesthesia Stop Time: 12:59 Coding CPT Codes CPT Codes: ANESTH LOWER LEG SURGERY - 42484 ([id number]) P3 - PATIENT W/SEVERE SYS DISEASE, QK - SHOE PARTS CASER 2-4 CNCRNT ANES PROC, QX - RINK RAT SVC W/ MD MED DIRECTION
--- NOTE | 2025-03-21 13:00 | W.ANESCHARGE ---
Anesthesia Charges Start Date/Time Anesthesia Start Date: 03/21/25 Anesthesia Start Time: 12:01 Stop Date/Time Anesthesia Stop Date: 03/21/25 Anesthesia Stop Time: 12:59 Coding CPT Codes CPT Codes: ANESTH LOWER LEG SURGERY - 37032 ([id number]) P3 - PATIENT W/SEVERE SYS DISEASE, QK - MILLING MACHINE TENDER 2-4 CNCRNT ANES PROC, QX - DIRECTOR OF CONTENT MARKETING SVC W/ MD MED DIRECTION
[2025-03-21] MEDS: IBUPROFEN 200 MG TABLET 600 MG PO (13:24)
== END 2025-03-21 13:36 | disposition home or self-care (01) ==
PROVIDERS: PCP Family Medicine; Visit Provider Surgery
PROC: (CPT 11042; principal; 2025-03-21 12:00)
DX: L97.222 Non-pressure chronic ulcer of left calf with fat layer exposed (principal); E66.01 Morbid (severe) obesity due to excess calories; Z68.45 Body mass index [BMI] 70 or greater, adult; G89.18 Other acute postprocedural pain; I89.0 Lymphedema, not elsewhere classified; I11.0 Hypertensive heart disease with heart failure; I50.9 Heart failure, unspecified; Z79.899 Other long term (current) drug therapy
CPT/HCPCS: 11042; 00400; 01470; 64445; 87070; 87075; 87205; A9270; J0665; J0690; J2003; J7120